=== PATIENT | female | born 1950 | race Caucasian/White ===

== ENCOUNTER 2017-05-07 14:23 | Inpatient (IN) ==
[2017-05-07] MEDS ORDERED: ONDANSETRON 4 MG/2 ML INJECTION IVP PRN (18:29)
[2017-05-07] MEDS ORDERED: HYDROCODONE/APAP 7.5 MG/325 MG TABLET PO PRN (18:30)
[2017-05-07] MEDS ORDERED: IOHEXOL 300mg/ml 75ml INJECTION ONE (18:38)
[2017-05-07] MEDS ORDERED: NS 100 ML ONE (18:38)
[2017-05-07] MEDS ORDERED: SALINE FLUSH 10ml SYRINGE ONE (18:38)
--- NOTE | 2017-05-07 18:39 | History & Physical Report ---
History of Present Illness Date: 05/07/17 Chief complaint: dehydration, tachycardia HPI: Danna is a 66-year-old female who lives in [place], [place] under the primary care of Dr. True Casiano. Patient has been ill since April 20 and has had multiple visits to the primary care provider's office. Initially she was diagnosed with influenza A on 04/22. She completed a round of Tamiflu, however, symptoms did not improve. She returned to primary care provider's office on April 30 for reevaluation, at which time she was then started on Augmentin twice a day for 10 days as well as an albuterol MDI inhaler for wheezing. Again , symptoms did not improve. On May 05, 2017 she began having right cervical adenopathy as well as right mastoid pain. Today she returned back to primary care provider's office for reevaluation given persistent symptoms and worsening pain. Further workup was performed at the clinic including a chest x-ray that was negative. Laboratory studies were obtained as follows- WBC count 7.2, hemoglobin 12.7, hematocrit 39.1, platelet count 23, 67% segs, 4% bands. INR is 3.43. Sodium is 135, potassium 3.2, BUN 19, creatinine 1.2, glucose 201, CRP 12.5, troponin negative, TSH 2.32, strep throat culture was negative. Blood cultures were obtained. Urinalysis was negative. She was given IV fluids as well as 2 gram of IV Rocephin at the clinic. She continued to be tachycardic. Given the new findings of thrombocytopenia, persistent tachycardia. Concern for dehydration [facility] hospitalist services were contacted and accepted patient for direct admission under the care of Dr. Haley for further evaluation and treatment. Given her oncologist is Dr. Brody. Patient is seen on arrival to [facility]. She is noted to be tachycardic in the 130s. She is able to give detailed history regarding ongoing illness and treatment. She also reveals that she has had a 10 pound weight loss over the last several weeks during this illness. She reports she does have a history of non-Hodgkin's lymphoma and does continue to follow with Dr. Brody. She reports that he has been observing a "neck mass on the left side. He has also been monitoring enlarged lymph nodes in the outpatient setting. Review of Systems All systems PM: 10-point ROS was reviewed, no additional remarkable complaints except - Constitutional Constitutional: Present: anorexia, fatigue, lethargy - Respiratory Respiratory: Present: cough - Musculoskeletal Musculoskeletal Comments: Chronic joint pain due to fibromyalgia Past Medical History Patient Stated Medical History Pulmonary Emboli and chronic anticoagulation Psoriatic arthritis Meningitis- 4 yrs ago Peripheral Neuropathy Hearing Loss Sleep Apnea Diabetes Mellitus Type 2 GERD Anemia Osteoarthritis Sepsis Shingles Non hodgkin's lymphoma Depression Surgical History: . Appendectomy. Cholecystectomy. Laminectomy L4- L5 -2011. Liposuction and Tummy tuck-1996. Left knee replacement-2006. Colonoscopy-2016. Lymph node biopsy-2015. Breast biopsy 2011 Family History Updates: Father-heart disease, CVA. Mother-dementia - Social History Smoking status: Never smoker Substance use type: does not use Alcohol intake frequency: does not drink Housing: house Current occupational status: retired (RN) Social history: PCP Dr True Goodrich, [place] Oncologist Dr. Lee Medications Home Medications Medication Instructions Recorded Confirmed Type Allopurinol [Zyloprim] 200 mg PO DAILY 05/07/17 05/07/17 History Atenolol [Tenormin] 12.5 mg PO DAILY 05/07/17 05/07/17 History Cyclobenzaprine HCl 15 mg PO HS 05/07/17 05/07/17 History Duloxetine HCl [Cymbalta] 60 mg PO BID 05/07/17 05/07/17 History Estropipate 0.375 mg PO DAILY 05/07/17 05/07/17 History Gabapentin [Neurontin] 600 mg PO TID 05/07/17 05/07/17 History Hydrocodone/APAP 7.5/325 1 tab PO Q4-6HR PRN 05/07/17 05/07/17 History Metformin HCl [Metformin HCl ER] 1,000 mg PO DAILY 05/07/17 05/07/17 History Omeprazole 40 mg PO DAILY 05/07/17 05/07/17 History Potassium Chloride [Klor-Con 10] 10 meq PO TID 05/07/17 05/07/17 History PredniSONE [Deltasone] 2.5 mg PO DAILY 05/07/17 05/07/17 History Rosuvastatin [Crestor] 20 mg PO HS 05/07/17 05/07/17 History Torsemide 50 mg PO DAILY 05/07/17 05/07/17 History Trazodone HCl 100 mg PO HS 05/07/17 05/07/17 History Warfarin Sodium 4 mg PO 3XW 05/07/17 05/07/17 History Warfarin Sodium 5 mg PO 4XW 05/07/17 05/07/17 History Allergies Allergy/AdvReac Type Severity Reaction Status Date / Time CARMEN Inhibitors Allergy Verified 05/07/17 17:08 atorvastatin [From Lipitor] Allergy Verified 05/07/17 17:08 clindamycin Allergy Verified 05/07/17 17:08 losartan Allergy Verified 05/07/17 17:08 niacin Allergy Verified 05/07/17 17:08 Exam Vital Signs: Temperature 99.3 F 05/07/17 17:13 Pulse Rate 136 H 05/07/17 18:19 Respiratory Rate 20 05/07/17 17:13 Blood Pressure 123/61 05/07/17 17:13 Pulse Oximetry 92 05/07/17 17:13 Telemetry Rhythm: Sinus Tachycardia Height/Weight/BMI: Height 1.55 m Weight 106.8 kg Body Mass Index 44.4 - Constitutional Present: no acute distress, well nourished, well developed - Routine HEENT Exam Eye: Present: EOMI ENT: Present: mucous membranes moist, dentition normal - Routine Neck Exam Present: lymphadenopathy, tenderness (right mastoid tenderness), swelling ( right mastoid swelling) - Routine Respiratory Exam Present: CTA bilaterally. Absent: wheezes - Routine Cardiovascular Exam Present: RRR, S1, S2. Absent: murmur - Routine Abdominal Exam Present: soft, normoactive bowel sounds, non distended. Absent: tenderness - Routine Extremities Exam Present: full ROM, normal capillary refill - Routine Back/Spine/Pelvis Exam Back/Spine: Present: full ROM - Routine Skin Exam Present: intact, dry, warm - Routine Neurological Exam Present: alert, oriented X3, CN II-XII intact, moving all extremities - Routine Psychiatric Exam Present: normal affect, cooperative Assessment and Plan (1) Dehydration Current visit: Yes Status: Acute (2) Tachycardia Current visit: Yes Status: Acute (3) Lymphadenopathy of right cervical region Current visit: Yes Status: Acute Assessment and Plan: Impression Dehydration Tachycardia-present on admission Thrombocytopenia-present on admission Lymphadenopathy with right mastoid tenderness Type II diabetes Peripheral neuropathy Psoriatic arthritis GERD Pulmonary emboli with chronic anticoagulation Fibromyalgia Chronic back pain Obstructive sleep apnea Plan Admit patient, observation under the care of Dr. Haley for dehydration with tachycardia and thrombocytopenia. Did review outpatient labs from this morning done at [facility] this morning. Salvager Helper was 1.2. Will obtain CT scan of soft tissue neck to further evaluate lymphadenopathy as well as right-sided mastoid tenderness. Place patient on cardiac telemetry to monitor given evidence tachycardia. Twelve -lead EKG is obtained during examination does reveal sinus tach, rate of 135. Will order PRN Lopressor 5 mg IV every 6 hrs PRN sustained tachycardia greater than 120. Obtain orthostatic vital signs BID Monitor accuchecks given DM Consultation with Dr Brody for further immunology evaluation and recommendation. Concern for thrombocytopenia with lymphadenopathy Obtain Urine Salvager Helper and urine sodium given hyponatremia Consult to pharmacy for Coumadin dosing management SCD to bilateral lower ext Home medications will need to be reviewed once reconciled Patient does wish to be a full code and this order is written Recheck CBC and BMP tomorrow morning to follow blood counts, renal function and electrolytes. Will discuss further orders and plan of care with today, Dr. Haley. At time of discharge medical care will return to primary care provider's in [place], [place], Dr True Casiano DVT Prophylaxis: SCD's, Coumadin Resuscitation Status: Full Code - Time spent with patient Time with patient PN: 35 minutes Coordination of Care: >50% of visit spent providing counseling/coordination of care - Physician Narrative Physician: Isabella Haley MD Narrative: Date: 05/07/17 Time: 2129 I have independently evaluated and examined this patient. I reviewed the chart, the patient's history, and the C2 TACTICAL ANALYSIS TECHNICIAN/PA's documented findings as above. We discussed and formulated the assessment and plan as above with additions as below: Mrs. Antony seen with her daughters at the bedside. She was diagnosed with influenza A 2 weeks ago but had persistent low-grade fevers prompting initiation of Augmentin one week ago without improvement. Over the past 3-4 days developed increasing adenopathy in the right neck with associated pain behind the right ear. She's had persistent fever with temperature as high as the 102 2 nights ago and describes night sweats unless she takes pain pills that suppress her temperature. She's had a 10 pound weight loss in the past week and describes generalized/increased myalgias, fatigue, arthralgias, and headache. She was tachycardic when seen in the office today with rate of approximately 140 and was incidentally found to have thrombocytopenia. She was referred for hospitalization due to new thrombocytopenia (plt ct 218K 04/22/17, no recognized blood loss per patient), persistent tachycardia, and increased adenopathy. The patient's 2 daughters are her alternate decision makers and the patient is a full code but reports she doesn't want to be kept alive as a vegetable. Afebrile on admission but it appears fatigued and chronically ill. Supine 133/ 67, 133 standing 90/57, 38 Palpable adenopathy in the anterior and posterior cervical chains, supraclavicular nodes noted and one axillary node palpated. Marked tenderness on palpation of the right mastoid, right external auditory canal with mild cerumen buildup but tympanic membrane can be visualized and is unremarkable. Respirations are nonlabored and breath sounds clear; regular cardiac rhythm. INR 3.02-warfarin on hold at present Ur Na-12, Ur Cr-39.5, FeNa-0.29% CT soft tissue neck reviewed by myself with report as described below. EKG with sinus tachycardia, rate 135, no acute ST/T-wave changes. In addition to labs obtained earlier today lactic acid being obtained-qSOFA 0 on admission. Severe sepsis criteria present based on fever, tachycardia, and new thrombocytopenia was suspected infection soft tissues of the head and neck. Fluid bolus being administered; rate of fluids to be increased-FENa consistent with dehydration; patient reports maintaining good oral intake however with recurrent fever volume status compromised. Orthostasis consistent with dehydration. Usual home dose beta louie resumed. Dr. Brody to see in a.m. CT of neck with fairly extensive adenopathy, right mastoid unremarkable however phlegmon is described inferior to right auditory canal. Blood cultures drawn prior to transfer. Continue Rocephin. Discussed with Dr. Casiano. Convert inpatient status due to presence of severe sepsis, hemodynamic instability, and need for IV antibiotics. Sepsis Assessment - Evaluation SIRS Criteria: temperature > 100.9 (by history), pulse > 90 beats/minute Severe Sepsis: platelet count < 100,000 Hospital Course Summary Disclaimer: The visit summary below is not to be considered part of the above Progress Note. Hospital Course: 05/07/17 Impression Dehydration Tachycardia-present on admission Thrombocytopenia-present on admission Lymphadenopathy with right mastoid tenderness Type II diabetes Peripheral neuropathy Psoriatic arthritis GERD Pulmonary emboli with chronic anticoagulation Fibromyalgia Chronic back pain Obstructive sleep apnea Plan Admit patient, observation under the care of Dr. Haley for dehydration with tachycardia and thrombocytopenia. Did review outpatient labs from this morning done at [facility] this morning. Salvager Helper was 1.2. Will obtain CT scan of soft tissue neck to further evaluate lymphadenopathy as well as right-sided mastoid tenderness. Place patient on cardiac telemetry to monitor given evidence tachycardia. Twelve -lead EKG is obtained during examination does reveal sinus tach, rate of 135. Will order PRN Lopressor 5 mg IV every 6 hrs PRN sustained tachycardia greater than 120. Obtain orthostatic vital signs BID Monitor accuchecks given DM Consultation with Dr Brody for further immunology evaluation and recommendation. Concern thrombocytopenia with lymphadenopathy Obtain Urine Salvager Helper and urine sodium given hyponatremia Consult to pharmacy for Coumadin dosing management SCD to bilateral lower ext Home medications will need to be reviewed once reconciled Patient does wish to be a full code and this order is written Recheck CBC and BMP tomorrow morning to follow blood counts, renal function and electrolytes. Will discuss further orders and plan of care with today, Dr. Haley. At time of discharge medical care will return to primary care provider's in [place], [place], Dr True Casiano
[2017-05-07] MEDS: NS with KCL 20 mEq 1,000 ML IV SCH (18:49)
[2017-05-07] MEDS: METOPROLOL 5mg/5ml INJECTION IVP PRN (19:28)
[2017-05-07] MEDS: SALINE FLUSH 10ml SYRINGE IV PRN ×3 (20:50→22:17)
[2017-05-07] MEDS ORDERED: CEFTRIAXONE 1 G in NS 100 ML IV SCH (21:30)
[2017-05-07] MEDS ORDERED: TRAZODONE 100 MG TABLET PO ONE (21:53)
[2017-05-07] MEDS: HYDROCODONE/APAP 7.5 MG/325 MG TABLET PO PRN (21:58)
[2017-05-07] MEDS: GABAPENTIN 600 MG TABLET PO SCH ×2 (21:59→22:17)
[2017-05-07] MEDS: CYCLOBENZAPRINE 10 MG TABLET PO SCH (21:59)
[2017-05-08] MEDS: METOPROLOL 5mg/5ml INJECTION IVP PRN (02:16)
[2017-05-08] MEDS: SALINE FLUSH 10ml SYRINGE IV PRN ×2 (02:18→04:09)
[2017-05-08] MEDS: NS with KCL 20 mEq 1,000 ML IV SCH ×2 (03:10→10:03)
[2017-05-08] MEDS: HYDROCODONE/APAP 7.5 MG/325 MG TABLET PO PRN ×4 (04:10→21:29)
[2017-05-08] MEDS ORDERED: NS FLUSH BAG 500ml IV PRN (08:17)
--- NOTE | 2017-05-08 08:38 | Consult Note ---
<Lu Christensen - Last Filed: 05/08/17 14:12> Oncology HPI - Data of Consult Requesting Physician: Isabella Haley MD - Consult Narrative History of present illness: Sitting in chair at time of my intake. Alert/oriented. Last fever/chills was 2 days ago at home. Denies chills, interm. feels 'sweaty' Denies h/a, vision changes. Pain interm. where neck is swollen. Denies SOA. Some non-prod. cough. No chest pain. Poor appetite-denies N/V. Last BM 3 days ago- " I went 4 times, the last time it was like diarrhea." Feels like is constipated now. Voiding normally Review of Systems - Constitutional Constitutional: Present: as per HPI, anorexia, fatigue - EENT Eyes: Absent: diplopia Nose: Absent: nosebleeds Mouth/Throat: Absent: sore throat, changes in swallowing Additional comments: Significant swelling neck, right > left for past several days. - Cardiovascular Cardiovascular: Absent: chest pain, palpitations - Respiratory Respiratory: Present: cough. Absent: hemoptysis, wheezing - Gastrointestinal Gastrointestinal: Present: constipation. Absent: hematochezia, nausea, vomiting - Genitourinary Genitourinary: Absent: dysuria, urinary urgency - Musculoskeletal Musculoskeletal: Present: neck pain - Neurological Neurological: Absent: dizziness, numbness - Psychiatric Psychiatric: Absent: abnormal sleep pattern - Hematologic/Lymphatic Hematologic/Lymphatic: Present: as per HPI, lymphadenopathy PFSH Patient Stated Medical History Meningitis Yes: bacterial meningitis 4 years ago Peripheral Neuropathy Yes: bilateral LE Hearing Loss Yes: Right ear hearing loss Sleep Apnea Yes: cpap at HS Diabetes Mellitus Type 2 Yes Gastroesophageal Reflux Yes Disease Hx Urinary Tract Infection Yes Anemia Yes Osteoarthritis Yes Sepsis Yes Shingles Yes Other Yes: non hodgkin's lymphoma Depression Yes Family History: oldest brother w/ history blood clots father with 3 sisters-2 paternal aunts had breast cancer. 1 paternal aunt with pancreatic cancer. No known cancer in first cousins - Social History Substance use type: does not use Alcohol intake frequency: does not drink Current occupational status: retired Current residence: Apartment/Private Home Medications Home Medications Medication Instructions Recorded Confirmed Type Allopurinol [Zyloprim] 200 mg PO DAILY 05/07/17 05/07/17 History Atenolol [Tenormin] 12.5 mg PO DAILY 05/07/17 05/07/17 History Cyclobenzaprine HCl 15 mg PO HS 05/07/17 05/07/17 History Duloxetine HCl [Cymbalta] 60 mg PO BID 05/07/17 05/07/17 History Estropipate 0.375 mg PO DAILY 05/07/17 05/07/17 History Gabapentin [Neurontin] 1,200 mg PO HS 05/07/17 05/07/17 History Gabapentin [Neurontin] 600 mg PO BID 05/07/17 05/07/17 History Hydrocodone/APAP 7.5/325 1 tab PO Q4-6HR PRN 05/07/17 05/07/17 History Metformin HCl [Metformin HCl ER] 1,000 mg PO DAILY 05/07/17 05/07/17 History Omeprazole 40 mg PO DAILY 05/07/17 05/07/17 History Potassium Chloride [Klor-Con 10] 10 meq PO TID 05/07/17 05/07/17 History PredniSONE [Deltasone] 2.5 mg PO DAILY 05/07/17 05/07/17 History Rosuvastatin [Crestor] 20 mg PO HS 05/07/17 05/07/17 History Torsemide 50 mg PO DAILY 05/07/17 05/07/17 History Trazodone HCl 100 mg PO HS 05/07/17 05/07/17 History Warfarin Sodium 4 mg PO 3XW 05/07/17 05/07/17 History Warfarin Sodium 5 mg PO 4XW 05/07/17 05/07/17 History Allergies Allergy/AdvReac Type Severity Reaction Status Date / Time CARMEN Inhibitors Allergy Verified 05/07/17 17:08 atorvastatin [From Lipitor] Allergy Verified 05/07/17 17:08 clindamycin Allergy Verified 05/07/17 17:08 losartan Allergy Verified 05/07/17 17:08 niacin Allergy Verified 05/07/17 17:08 Exam Vital signs: Temperature 98.8 F 05/08/17 08:00 Pulse Rate 106 H 05/08/17 11:00 Respiratory Rate 18 05/08/17 08:00 Blood Pressure 110/55 05/08/17 08:23 Pulse Oximetry 90 05/08/17 08:00 - Constitutional no acute distress, obese, cooperative - Routine HEENT Exam Head: Present: normocephalic Eye: Present: EOMI, PERRL ENT: Present: mucous membranes moist Throat: normal inspection - Routine Neck Exam Present: lymphadenopathy, swelling Comments: left anterior cervical lymphadenopathy, ~ 1.5 cm significant swelling right neck with large mass effect - Routine Respiratory Exam Present: decreased breath sounds. Absent: wheezes, crackles - Routine Cardiovascular Exam Present: RRR. Absent: no murmur, gallop - Routine Abdominal Exam Present: soft, normoactive bowel sounds. Absent: organomegaly, mass Comments: No organomegaly or mass, but difficult to assess 2nd to body habitus - Routine Extremities Exam Absent: no edema, tenderness - Routine Skin Exam Present: intact, dry, warm - Routine Neurological Exam Present: alert, oriented X3, moving all extremities, vision grossly intact, hearing grossly intact - Routine Psychiatric Exam Present: normal affect, normal thought process Oncology Results - Labs CBC & Chem 7: 05/08/17 04:00 05/08/17 04:00 Labs: Short CBC 05/08/17 Range/Units 04:00 WBC 6.2 (4.5-11.0) T/MM3 Hgb 10.2 L (12-16) GM/DL Hct 32.7 L (36-46) % Plt Count 12 L* (130-400) T/MM3 BMP 05/08/17 04:00 Sodium 141 Potassium 3.4 L Chloride 103 Carbon Dioxide 26 BUN 14.0 Creatinine 0.8 Glucose 106 Calcium 7.5 L Liver Function 05/08/17 Range/Units 04:00 Total Bilirubin 0.50 (0.20-1.30) MG/DL AST 63 H (14-36) U/L ALT 33 (9-52) U/L Alkaline Phosphatase 48 (38-126) U/L Albumin 3.0 L (3.5-5.0) G/DL - Impressions Date of Exam: 05/07/17 Ordering Provider: Jennifer Aly APRN Type of Exam(s): CT soft tissue neck w con Reason for Exam(s): Right mastoid tenderness, cervical lymphadenopathy Indication: Right mastoid tenderness, cervical lymphadenopathy PROCEDURE: CT soft tissue neck w con: Encounter: Initial Comparison: None Technique: Axial CT images were performed through the neck with intravenous contrast. Coronal and sagittal two-dimensional reformats. Automated Exposure Control and Iterative Reconstruction dose reducing techniques were utilized. Contrast: Omnipaque 300 75 mL Findings: Mild paraseptal emphysema. Significant mediastinal, axillary and cervical lymphadenopathy. Enlarged prevascular node on image #10 measures 2.6 cm in short axis. Enlarged right subpectoral node on image #24 measuring 2 cm in short axis. The thyroid gland is unremarkable. No evidence of airway compromise or tracheal narrowing. Bilateral cervical levels to 34 and five are all involved by minimally distributed lymph nodes measuring between five and 15 mm in short axis dimension. The salivary glands are fatty replaced. Great vessels are grossly normal. No evidence of significant mastoid fluid. There is a 1.5 cm low-attenuation region inferior to the right external auditory canal with some slight stranding around it the could represent phlegmon or inflamed lymph node. Impression: Diffuse adenopathy consistent with patient's history of lymphoma. Possible lymph node versus phlegmon inferior to the right external auditory canal. Assessment and Plan Assessment and Plan: 1. 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 Has shown adenopathy on CT scans since 01/2016. Left axillary LN biopsy : follicular hyperplasia. Most recent CT scan 03/12/17 showed improvement in thoracic LAD, mixed response in abd/pelvis. On continued surveillance. CT neck 05/08/17 shows diffuse adenopathy c/w history lymphoma. 2. Now with thrombocytopenia, tachycardia on admit, elevated LDH, and diffuse cervical adenopathy; potential cold agglutinin disease. 3. History of DVT Plan Dr. Brody has seen patient. Myeloma work up, check complimentary C3, C4 protein ordered. Will check urine hemoglobin. Bone marrow biopsy done/results pending. Continue supportive care; 1 unit platelets given. Follow closely. <Estrada Brody - Last Filed: 05/08/17 17:10> Oncology HPI - Data of Consult Patient: known to practice within the last 3 years Consult date: 05/08/17 Requesting Physician: Isabella Haley MD Family Provider: Dr. Mynor Casiano - Consult Narrative Reason for consult: history of lymphoma. Thrombocytopenia History of present illness: History of Present Illness --04/09/12: Left breast biopsy showing extranodal marginal zone Path review of lung biopsy from 2010 shows extranodal marginal zone lymphoma [place] restricted. Bone marrow was negative. Her lymphoma was treated by Dr. Meggan Epstein in [place] with six cycles of Rituxan/Treanda. --2011: Colon polyp, high grade dysplasia. --11/02/12: Last chemotherapy cycle. --03/16/15: CT without adenopathy with minor lung fibrosis and nodularity. --07/19/15: CT showing no evidence for neoplasm. --01/18/16: CT now showing adenopathy. 2.3 by 1.3 cm left axillary, 2.6 X 1.1 right axillary. Right paratracheal left common femoral,right external iliac nodes increased. --02/12/16: Left axillary lymph node biopsy: Follicular hyperplasia. --04/24/16: CT showed lung nodularity, axillary adenopathy, Stable right iliac nodes. --12/05/16: EGD and colonoscopy with Dr. Miller. --01/02/17: Dr. Lamonte Pugh-EGD and endoscopic ultrasound showed a 26 mm benign-appearing polypoid prepyloric pedunculated mass biopsies were obtained. Dr. Pugh's impression was of benign hyperplastic or inflammatory type of polyp. Pathology showed ulcerated hyperplastic polyp with Marked acute and chronic inflammation and granulation. Patient has had a 3 to 4 week history of URI cough, fever. Platelets yesterday were 23K and she is admitted to [facility] on 05/07/17 for low platelets. On Coumadin for DVT. INR 3. Platelets this AM of 12K. Increased swelling in the neck. She is on chronic prednisone for psoriatic arthritis. CT from 2 months ago showed smaller nodes in the chest and a mixed response in the abdomen with a para aortic node measuring 3.2 X 2.5 cm. [facility] Patient Stated Medical History Meningitis Yes: bacterial meningitis 4 years ago Peripheral Neuropathy Yes: bilateral LE Hearing Loss Yes: Right ear hearing loss Sleep Apnea Yes: cpap at HS Diabetes Mellitus Type 2 Yes Gastroesophageal Reflux Yes Disease Hx Urinary Tract Infection Yes Anemia Yes Osteoarthritis Yes Sepsis Yes Shingles Yes Other Yes: non hodgkin's lymphoma Depression Yes Surgical History: . Appendectomy. Cholecystectomy. Laminectomy L4- L5 -2011. Liposuction and Tummy tuck-1996. Left knee replacement-2006. Colonoscopy-2016. Lymph node biopsy-2015. Breast biopsy 2011 - Social History Smoking status: Never smoker Exam Vital signs: Temperature 98.8 F 05/08/17 08:00 Pulse Rate 102 H 05/08/17 08:23 Respiratory Rate 18 05/08/17 08:00 Blood Pressure 110/55 05/08/17 08:23 Pulse Oximetry 90 05/08/17 08:00 Oncology Results - Labs CBC & Chem 7: 05/08/17 13:25 05/08/17 04:00 Labs: Short CBC 05/08/17 Range/Units 04:00 WBC 6.2 (4.5-11.0) T/MM3 Hgb 10.2 L (12-16) GM/DL Hct 32.7 L (36-46) % Plt Count 12 L* (130-400) T/MM3 BMP 05/08/17 04:00 Sodium 141 Potassium 3.4 L Chloride 103 Carbon Dioxide 26 BUN 14.0 Creatinine 0.8 Glucose 106 Calcium 7.5 L Liver Function 05/08/17 Range/Units 04:00 Total Bilirubin 0.50 (0.20-1.30) MG/DL AST 63 H (14-36) U/L ALT 33 (9-52) U/L Alkaline Phosphatase 48 (38-126) U/L Albumin 3.0 L (3.5-5.0) G/DL Laboratory Tests 05/07/17 05/08/17 05/08/17 19:27 04:00 04:00 Hgb 10.2 L Plt Count 12 L* Metamyelocytes % 3.0 H Myelocytes % 1.0 H Percent Retic 3.0 H INR 3.02 H Calcium 7.5 L Lactate Dehydrogenase 1262 H IgG 1236.28 IgA 229.84 IgM 321.27 H Assessment and Plan Assessment and Plan: CT of the chest abdomen pelvis shows increasing lymph nodes that we will need to get a biopsy of to document type of lymphoma. Need to have platelets higher to be able to get the biopsy. Bone marrow biopsy was done today. 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 Will start Solu-Medrol 1 g daily for 3 days. May add IVIG or Rituxan depending upon bone marrow results. When patient initially presented with her lymphoma she did have low platelets and had normal bone marrow at that time. 2. Influenza 3. Question lymph node versus phlegmon of the right submandibular area. Currently on antibiotics and fever is decreasing. 4. History of pulmonary embolism anticoagulated. Will give 1 more unit of fresh frozen. 1 unit of fresh frozen was given prior to bone marrow and INR was 2 down from 3. Discussed with Dr. Haley platelets improved from 12 to 14 after one unit of platelets.
--- NOTE | 2017-05-08 09:01 | CT Scan Report ---
Indication: Right mastoid tenderness, cervical lymphadenopathy PROCEDURE: CT soft tissue neck w con: Encounter: Initial Comparison: None Technique: Axial CT images were performed through the neck with intravenous contrast. Coronal and sagittal two-dimensional reformats. Automated Exposure Control and Iterative Reconstruction dose reducing techniques were utilized. Contrast: Omnipaque 300 75 mL Findings: Mild paraseptal emphysema. Significant mediastinal, axillary and cervical lymphadenopathy. Enlarged prevascular node on image #10 measures 2.6 cm in short axis. Enlarged right subpectoral node on image #24 measuring 2 cm in short axis. The thyroid gland is unremarkable. No evidence of airway compromise or tracheal narrowing. Bilateral cervical levels to 34 and five are all involved by minimally distributed lymph nodes measuring between five and 15 mm in short axis dimension. The salivary glands are fatty replaced. Great vessels are grossly normal. No evidence of significant mastoid fluid. There is a 1.5 cm low-attenuation region inferior to the right external auditory canal with some slight stranding around it the could represent phlegmon or inflamed lymph node. Impression: Diffuse adenopathy consistent with patient's history of lymphoma. Possible lymph node versus phlegmon inferior to the right external auditory canal. There is a preliminary report by [facility]. .
[2017-05-08] MEDS: DULOXETINE 60 MG CAPSULE PO SCH ×2 (09:54→21:26)
[2017-05-08] MEDS: ALLOPURINOL 100 MG TABLET PO SCH (09:54)
[2017-05-08] MEDS: PredniSONE 2.5 MG TABLET PO SCH (09:54)
[2017-05-08] MEDS: GABAPENTIN 600 MG TABLET PO SCH ×3 (09:54→21:26)
[2017-05-08] MEDS: ATENOLOL 25 MG TABLET PO SCH (09:55)
[2017-05-08] MEDS ORDERED: PNEUMOCOCCAL 13 VACCINE 0.5ml INJECTION IM ONE (12:05)
[2017-05-08] MEDS ORDERED: SALINE FLUSH 10ml SYRINGE ONE (14:05)
[2017-05-08] MEDS ORDERED: NS 100 ML ONE (14:05)
[2017-05-08] MEDS ORDERED: IOHEXOL 300mg/ml 100ml INJECTION ONE (14:05)
[2017-05-08] MEDS: CEFTRIAXONE 1 G in NS 100 ML IV SCH (14:29)
[2017-05-08] MEDS ORDERED: BUPIVACAINE 0.5% (5mg/ml) PF 30ml INJ SDV ONE (14:57)
[2017-05-08] MEDS ORDERED: LIDOCAINE 1% (10mg/ml) 5ml PF SDV ONE (14:57)
[2017-05-08] MEDS ORDERED: PNEUMOCOCCAL VAC ADMIN CHARGE INJ ONE (16:26)
--- NOTE | 2017-05-08 16:26 | CT Scan Report ---
Indication:Thrombocytopenia Procedure:CT biopsy bone marrow CT GUIDED BONE MARROW BIOPSY/ASPIRATION: The procedure including the benefits, risks, and alternatives were explained in detail to the patient. All of her questions were answered. They stated that they understood and wished to proceed. Informed consent was obtained. A pre-procedural timeout was done to verify the correct patient and procedure. Using sterile technique, local Xylocaine and Marcaine anesthesia, and CT guidance, an 11-gauge bone biopsy needle is advanced from a posterior approach into the left iliac bone. Approximately 10 cc of marrow is aspirated and a core biopsy was then taken. The needle was removed. There was no complication. Hemostasis was obtained and a compression bandage was applied. Following this, the patient was taken back to her room on the medical floor for continued monitoring. She was in stable condition. Impression: Technically successful bone marrow biopsy from the posterior aspect of the left iliac bone. Gus Kee RPA/MARY performed this under my personal supervision. .
[2017-05-08] MEDS: POLYETHYL GLYCOL 3350 17gm PACKET PO SCH (17:44)
--- NOTE | 2017-05-08 17:44 | Progress Note ---
- Date 05/08/17 Subjective: Mrs. Antony reports persistent tenderness behind her right ear although possibly not as bad. She's feverish at the time of evaluation. She began having nasal bleeding overnight and reports that the bone marrow site is bleeding. She is also noted increased bruising overnight. She is slightly dyspneic, especially with any activity. She denied nausea but is constipated. She describes mild pleuritic pain but has not had hemoptysis. She reports her urine is dark orange. Heart rate improved after fluid bolus/administration overnight. Objective Vital signs: Temperature 99.0 F 05/08/17 16:00 Pulse Rate 103 H 05/08/17 16:00 Respiratory Rate 20 05/08/17 16:00 Blood Pressure 123/65 05/08/17 16:00 Pulse Oximetry 94 - RA 05/08/17 16:00 I/O 4733/1600 EXAM General-NAD, alert; no longer orthostatic HEENT-conjunctiva clear, sclera anicteric, oropharynx clear other than mild blood staining along inner aspect of Lungs-respirations nonlabored, good airflow, breath sounds clear Cardiac-regular rhythm, S1-S2 Abd-obese, soft, nontender, bowel sounds present although diminished Ext-trace edema bilateral lower extremities Skin-petechiae present all extremities-most notable right forearm and arm; increased bruising right upper extremity, large bruise/hematoma over right scapula Neuro-MAEW Psych-calm, cooperative - Height/Weight/BMI: Height 1.55 m Weight 107.9 kg Body Mass Index 44.4 Results - Labs CBC & Chem 7: 05/08/17 13:25 05/08/17 04:00 Labs: White count 6.2, hemoglobin 10.2, platelet count initially 12 this morning. MCV 88.1. S51 B17 L19 M9 Meta3 Mye1 INR 2.03 Accu-Cheks 152-187 today Bilirubin 0.5, AST 63, albumin 3.0 LDH 1262 Lactic acid 3.0-2.0 Homocystine 8.1 IgG, IgA within normal limits, IgM elevated at 321.27 Multiple studies pending - Imaging and Cardiology CT scan - abdomen Status: image reviewed by me (discussed with Dr. Brody-extensive adenopathy and some atrophy of kidneys and probable hydronephrosis on the right) CT scan - chest Status: image reviewed by me (and reviewed with Dr. Brody-extensive adenopathy) Assessment and Plan (1) Dehydration Current visit: Yes Status: Acute (2) Thrombocytopenia Current visit: Yes Status: Acute Assessment and Plan: Impression Dehydration-POA, FeNa 0.29% Tachycardia-POA Thrombocytopenia-POA Lymphadenopathy, extensive Right mastoid tenderness, possible phlegmon inferior right auditory canal Sepsis Type II diabetes Peripheral neuropathy Psoriatic arthritis GERD Pulmonary emboli with chronic anticoagulation Fibromyalgia Chronic back pain Obstructive sleep apnea Plan Worsening thrombocytopenia overnight, extensive adenopathy on CT imaging of chest/abdomen/pelvis. No response to initial platelet pack-likely autoimmune destruction. Additional platelet is being given due to bleeding bone marrow biopsy site. High-dose steroids initiated in conjunction with FFP per Dr. Brody. Bone marrow obtained-results pending. 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 Tachycardia improving with fluid administration-continue. Fevers controlled with frequent doses acetaminophen/[place]. Continue ceftriaxone for sepsis-will contact Dr. Casiano in [place] tomorrow regarding culture results. Warfarin on hold due to thrombocytopenia/bleeding. SCDs for DVT prophylaxis. Bowel regimen initiated for constipation. Results discussed with Dr. Brody several times through the day. DVT Prophylaxis: SCD's GI Prophylaxis: other (omeprazole) Resuscitation Status: Full Code - Physician Narrative Narrative: Date: 05/08/17 Time: 1731 Hospital Course Summary Disclaimer: The visit summary below is not to be considered part of the above Progress Note. Hospital Course: 05/07/17 Impression Dehydration Tachycardia-present on admission Thrombocytopenia-present on admission Lymphadenopathy with right mastoid tenderness Type II diabetes Peripheral neuropathy Psoriatic arthritis GERD Pulmonary emboli with chronic anticoagulation Fibromyalgia Chronic back pain Obstructive sleep apnea Plan Admit patient, observation under the care of Dr. Haley for dehydration with tachycardia and thrombocytopenia. Did review outpatient labs from this morning done at [facility] this morning. Community Coordinator was 1.2. Will obtain CT scan of soft tissue neck to further evaluate lymphadenopathy as well as right-sided mastoid tenderness. Place patient on cardiac telemetry to monitor given evidence tachycardia. Twelve -lead EKG is obtained during examination does reveal sinus tach, rate of 135. Will order PRN Lopressor 5 mg IV every 6 hrs PRN sustained tachycardia greater than 120. Obtain orthostatic vital signs BID Monitor accuchecks given DM Consultation with Dr Brody for further immunology evaluation and recommendation. Concern thrombocytopenia with lymphadenopathy Obtain Urine Community Coordinator and urine sodium given hyponatremia Consult to pharmacy for Coumadin dosing management SCD to bilateral lower ext Home medications will need to be reviewed once reconciled Patient does wish to be a full code and this order is written Recheck CBC and BMP tomorrow morning to follow blood counts, renal function and electrolytes. Will discuss further orders and plan of care with today, Dr. Haley. At time of discharge medical care will return to primary care provider's in [place], [place], Dr True Casiano 05/08/17 Worsening thrombocytopenia overnight, extensive adenopathy on CT imaging of chest/abdomen/pelvis. No response to initial platelet pack-likely autoimmune destruction. Additional platelet is being given due to bleeding bone marrow biopsy site. High-dose steroids initiated in conjunction with FFP per Dr. Brody. Bone marrow obtained-results pending. 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 Tachycardia improving with fluid administration-continue. Fevers controlled with frequent doses acetaminophen/[place]. Continue ceftriaxone for sepsis-will contact Dr. Casiano in [place] tomorrow regarding culture results. Warfarin on hold due to thrombocytopenia/bleeding. SCDs for DVT prophylaxis.
[2017-05-08] MEDS: SENNA + DOCUSATE TABLET PO SCH (21:28)
[2017-05-08] MEDS: TRAZODONE 100 MG TABLET PO SCH (21:28)
[2017-05-08] MEDS: CYCLOBENZAPRINE 10 MG TABLET PO SCH (21:28)
[2017-05-09] MEDS: NS with KCL 20 mEq 1,000 ML IV SCH ×3 (00:22→21:53)
[2017-05-09] MEDS ORDERED: NS 1,000 ML IV ONE (04:04)
[2017-05-09] MEDS: OMEPRAZOLE 20 MG CAPSULE PO SCH (06:25)
[2017-05-09] MEDS: HYDROCODONE/APAP 7.5 MG/325 MG TABLET PO PRN ×2 (06:34→21:16)
[2017-05-09] MEDS: GABAPENTIN 600 MG TABLET PO SCH ×3 (08:45→21:05)
[2017-05-09] MEDS: METOPROLOL 5mg/5ml INJECTION IVP PRN (08:45)
[2017-05-09] MEDS: SENNA + DOCUSATE TABLET PO SCH ×2 (08:45→21:04)
[2017-05-09] MEDS: DULOXETINE 60 MG CAPSULE PO SCH ×3 (08:45→21:10)
[2017-05-09] MEDS: POLYETHYL GLYCOL 3350 17gm PACKET PO SCH (08:45)
[2017-05-09] MEDS: ALLOPURINOL 100 MG TABLET PO SCH (08:45)
[2017-05-09] MEDS: ATENOLOL 25 MG TABLET PO SCH (08:45)
[2017-05-09] MEDS: MethylPREDNISolone SOD SUCC 1,000 MG in NS 250ml 250 ML IV SCH (08:46)
--- NOTE | 2017-05-09 09:31 | CT Scan Report ---
Indication: Lymphoma PROCEDURE: CT chest abd/pelvis w con: Encounter: Subsequent Comparison: Outside CT neck, chest, abdomen and pelvis dated March 12, 2017 Technique: Axial CT images were performed through the chest, abdomen and pelvis after the administration of intravenous contrast. Coronal and sagittal two-dimensional reformats. Automated Exposure Control and Iterative Reconstruction dose reducing techniques were utilized. Contrast: Omnipaque 300 99 mL Findings: Chest: Small bulla in both lungs. There is new nodularity in the right lower lobe on axial image #27. There is a new 6 mm nodule in the right middle lobe on image #17. There are additional small nodules along the right diaphragmatic surface on image #30. Stable area of possible nodular scar in the lingula. 7 mm left lower lobe nodule on image #31 appears new. No pneumonia, pleural effusion or pneumothorax. The central airways are patent. Axillary and mediastinal adenopathy has significantly worsened from the comparison study. Licensed Acupuncturist right axillary node on axial image #12 measures 1.9 cm in short axis compared to 0.9 cm on the comparison. Right paratracheal node on image #11 measures 2 cm in short axis compared to 1.1 cm. AP window node on axial image #18 measures 2.2 cm in short axis compared to 1.3 cm. Additional paratracheal and subcarinal nodes have grown by a similar amount. Right hilar lymphadenopathy as well. Heart size is stable. No pericardial effusion. Great vessels are within normal limits. Abdomen/pelvis: The liver is grossly normal. Gallbladder is surgically absent. The spleen with accessory splenule, pancreas and adrenal glands are normal. Tiny low-attenuation renal foci bilaterally, too small to definitively characterize. Right renal scarring. Interval growth in a large left periaortic node on image #38 now measuring 4.5 cm in short axis compared to 2.9 cm previously. Additional periaortic and aortocaval nodes have significantly enlarged. Enlarging bilateral common and external iliac nodes are also seen. Right common iliac node on image #69 measures 2.2 cm in short axis, increased from 0.9 cm. Large right pelvic sidewall node on image #73 now measures 2.9 cm short axis compared to 1.8 cm. Left pelvic sidewall node on image #76 now measures 2.5 cm short axis compared to 1.1 cm. Enlarging left inguinal nodes. Licensed Acupuncturist node on image #89 measures 1.6 cm short axis compared to 1 cm. The bladder is normal. Uterus is absent. Mild sigmoid diverticulosis without acute diverticulitis. No evidence of a bowel obstruction. Calcified density deep to the right abdominal wall probably related to prior hernia repair. Bone windows show degenerative and postoperative changes in the lumbar spine but no obvious lytic or blastic bony lesions. Impression: 1. Significant interval worsening in axillary, mediastinal, retroperitoneal and pelvic adenopathy as described and measured above. 2. New pulmonary nodules suspicious for metastases. .
[2017-05-09] MEDS ORDERED: TORSEMIDE 20 MG TABLET PO SCH (10:45)
[2017-05-09] MEDS: CEFTRIAXONE 1 G in NS 100 ML IV SCH (13:16)
--- NOTE | 2017-05-09 13:36 | Progress Note ---
<Lu Christensen - Last Filed: 05/09/17 15:24> Oncology Subjective Sitting in chair, daughter @ bedside. Reports "SOA if I take a deep breath." Denies cough, not SOA now. Feels neck is a little less sore. Eating a bit better today. No BM since admit. Reports taking Miralax, Senokot. Passing gas today. No dysuria/hematuria. General: + fever, no night sweats or chills Eyes: No redness, no pain, no diplopia ENT: No mouth sores, no trouble swallowing Cardiac: No chest pain no palpitations Pulmonary: No cough, + shortness of breath " with a deep breath", no wheezing Abdomen: No pain, no nausea vomiting, no diarrhea. + constipation : No urgency, frequency, dysuria, or hematuria Musculoskeletal: No arthritis, no myalgias Neurological: No headaches, no focal weakness Skin: No rash, no sores Psychiatric: No anxiety, no depression Exam Vital signs: Temperature 100.0 F 05/09/17 07:24 Pulse Rate 121 H 05/09/17 11:54 Respiratory Rate 24 05/09/17 07:24 Blood Pressure 122/60 05/09/17 11:54 Pulse Oximetry 90 05/09/17 11:54 - Constitutional no acute distress, obese, cooperative - Routine HEENT Exam Head: Present: normocephalic Eye: Present: EOMI. Absent: periorbital swelling ENT: Present: mucous membranes moist - Routine Neck Exam Present: supple, lymphadenopathy (right neck with diffuse swelling-appears decreased. 1 cm left ant. cervical LAD) - Routine Respiratory Exam Present: decreased breath sounds. Absent: wheezes, crackles - Routine Cardiovascular Exam Present: RRR, tachycardia (mildly tachycardic). Absent: no murmur - Routine Abdominal Exam Present: soft. Absent: organomegaly, mass (no organomegaly or mass, but difficult to assess 2nd. to obesity) - Routine Extremities Exam Present: edema (trace/1 + pedal edema. No upper extremity edema), full ROM - Routine Back/Spine/Pelvis Exam Back/Spine: Absent: paraspinal tenderness - Routine Skin Exam Present: intact, dry, pallor, petechiae (petechiae noted loli. dorsum hands and anterior loli. lower legs) - Routine Neurological Exam Present: alert, oriented X3, moving all extremities, hearing grossly intact - Routine Psychiatric Exam Present: normal affect, normal thought process, cooperative Oncology Results - Labs CBC & Chem 7: 05/09/17 12:17 05/09/17 04:35 Labs: Short CBC 05/08/17 05/09/17 05/09/17 Range/Units 13:25 00:04 04:35 WBC 5.6 (4.5-11.0) T/MM3 Hgb 8.6 L D (12-16) GM/DL Hct 28.5 L D (36-46) % Plt Count 14 L* 11 L* 7 L* D (130-400) T/MM3 05/09/17 Range/Units 12:17 WBC (4.5-11.0) T/MM3 Hgb (12-16) GM/DL Hct (36-46) % Plt Count 11 L* D (130-400) T/MM3 BMP 05/09/17 04:35 Sodium 140 Potassium 3.6 Chloride 107 Carbon Dioxide 25 BUN 13.0 Creatinine 0.8 Glucose 121 H Calcium 7.9 L Liver Function 05/09/17 Range/Units 04:35 Albumin 3.1 L (3.5-5.0) G/DL Urine 05/09/17 Range/Units 10:04 Urine Protein 22 MG/DL Assessment and Plan Assessment and Plan: 1. 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 Has shown adenopathy on CT scans since 01/2016. Left axillary LN biopsy : follicular hyperplasia. Most recent CT scan 03/12/17 showed improvement in thoracic LAD, mixed response in abd/pelvis. On continued surveillance. CT neck 05/08/17 shows diffuse adenopathy c/w history lymphoma. CT of the chest abdomen pelvis shows increasing lymph nodes that we will need to get a biopsy of to document type of lymphoma. Need to have platelets higher to be able to get the biopsy. Bone marrow biopsy was done 05/08/16, pathology pending.. 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 Started Solu-Medrol 1 g daily for 3 days. May add IVIG or Rituxan depending upon bone marrow results. When patient initially presented with her lymphoma she did have low platelets and had normal bone marrow at that time. 2. Now with thrombocytopenia, tachycardia on admit, elevated LDH, and diffuse cervical adenopathy; potential cold agglutinin disease. ITP persists, platelets 7K today, 05/09/17; add high dose IVIG today. 3. History of DVT 4. Influenza 5. History of pulmonary embolism anticoagulated. FFP given 05/08/17 and repeated today; INR 1.38 today, 05/09/16. Plan Continue close monitoring of counts, supportive care. Begin IVIG today. Reviewed safety precautions w/ patient; DO NOT AMBULATE ALONE-at risk for severe injury if falls. Acknowledges/agrees to call for help when up. - Time Spent With Patient Total time spent is greater than 50% in coordination of care (as documented) at patient's floor/unit and/or counseling patient: 25 - 35 minutes <Estrada Brody - Last Filed: 05/09/17 18:22> Exam Vital signs: Temperature 98.9 F 05/09/17 15:26 Pulse Rate 94 05/09/17 15:26 Respiratory Rate 20 05/09/17 15:26 Blood Pressure 132/73 05/09/17 15:26 Pulse Oximetry 94 05/09/17 15:26 Oncology Results - Labs CBC & Chem 7: 05/09/17 12:17 05/09/17 04:35 Labs: Short CBC 05/09/17 05/09/17 05/09/17 Range/Units 00:04 04:35 12:17 WBC 5.6 (4.5-11.0) T/MM3 Hgb 8.6 L D (12-16) GM/DL Hct 28.5 L D (36-46) % Plt Count 11 L* 7 L* D 11 L* D (130-400) T/MM3 BMP 05/09/17 04:35 Sodium 140 Potassium 3.6 Chloride 107 Carbon Dioxide 25 BUN 13.0 Creatinine 0.8 Glucose 121 H Calcium 7.9 L Liver Function 05/09/17 Range/Units 04:35 Albumin 3.1 L (3.5-5.0) G/DL Urine 05/09/17 Range/Units 10:04 Urine Protein 22 MG/DL Assessment and Plan Assessment and Plan: Patient examined. Chart reviewed Discussed with Dr. Haley and Dr. Trevizo. Platelets have declined to 7 k. improved to 11K after transfusion today. INR corrected. Haptoglobin normal ruling out hemolytic anemia. She does have warm antibody and will do type and screen. Bone marrow findings discussed with Dr. Trevizo. Granulomas and concern for hodgkin's disease. Adequate megas confirm ITP. No response to solumedrol. Will start IvIg at 1 gm per KG today with plan to repeat tomorrow if platelets not above 50K. Will need node biopsy when platelets allow. Febrile this morning that has improved. I participated in the development of the plan of care with Michelle Christensen. History of DVT and will start LMW heparin when platelets above 50K and no bleeding. Anemia may be secondary to blood loss. Type and screen obtained today prior to IvIG and will be good for 72 hours. - Time Spent With Patient Total time spent is greater than 50% in coordination of care (as documented) at patient's floor/unit and/or counseling patient:
[2017-05-09] MEDS: DIPHENHYDRAMINE 50 MG/ML IVP SCH (14:37)
[2017-05-09] MEDS: ACETAMINOPHEN 325 MG PO SCH (14:38)
[2017-05-09] MEDS: [UNRECOGNIZED DRUG - MIXTURE] IV SCH (15:04)
--- NOTE | 2017-05-09 16:04 | Progress Note ---
- Date 05/09/17 Subjective: Robb is seen this afternoon with her daughter at her side. She is somewhat drowsy as she has had Tylenol and Benadryl prior to examination. It is noted that her heart rate has decreased and is currently 94 on auscultation. She reports having intermittent episodes of dryness in her nose that is bleeding as well as noted to have a petechial rash to bilateral hands and lower extremities likely due to her severe thrombocytopenia. No bowel movements. Objective Vital signs: Temperature 98.9 F 05/09/17 15:26 Pulse Rate 94 05/09/17 15:26 Respiratory Rate 20 05/09/17 15:26 Blood Pressure 132/73 05/09/17 15: Pulse Oximetry 94 05/09/17 15:26 Height/Weight/BMI: Height 1.55 m Weight 107.9 kg Body Mass Index 44.4 - Constitutional Present: no acute distress, well nourished, well developed - Routine HEENT Exam Eye: Present: EOMI ENT: Present: mucous membranes moist, dentition normal - Routine Respiratory Exam Present: CTA bilaterally. Absent: wheezes - Routine Cardiovascular Exam Present: RRR. Absent: murmur - Routine Abdominal Exam Present: soft, normoactive bowel sounds, non distended. Absent: tenderness - Routine Extremities Exam Present: edema (1-2+ bilateral lower ext edema), normal capillary refill - Routine Skin Exam Present: intact, dry, petechiae (Bilateral hands, bilateral lower ext), warm - Routine Neurological Exam Present: alert, oriented X3, CN II-XII intact, moving all extremities - Routine Lymphatic Exam Lymphatic: Absent: adenopathy - Routine Psychiatric Exam Present: normal affect Results - Labs CBC & Chem 7: 05/09/17 12:17 05/09/17 04:35 Assessment and Plan (1) Dehydration Current visit: Yes Status: Acute (2) Thrombocytopenia Current visit: Yes Status: Acute Assessment and Plan: Impression Dehydration-POA, FeNa 0.29% Tachycardia-POA Thrombocytopenia-POA Lymphadenopathy, extensive Right mastoid tenderness, possible phlegmon inferior right auditory canal Progressive anemia-RLL 05/09/17 Sepsis Type II diabetes Peripheral neuropathy Psoriatic arthritis GERD Pulmonary emboli with chronic anticoagulation Fibromyalgia Chronic back pain Obstructive sleep apnea Plan IVIG infusion under the surveillance of Dr. Brody Continued severe thrombocytopenia. Having bleeding from nose and gums that is controlled. Noted petechiae, rash to extremities. 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 Tachycardia improving currently 90's on auscultation Family Indicates plans to speak with Dr. Lee tomorrow morning as they have a lot of questions for him regarding diagnoses and further treatment plans. Continue to follow daily labs - Physician Narrative Physician: Isabella Haley MD Narrative: Date: 05/09/17 Time: 2214 I have independently evaluated and examined this patient. I reviewed the chart, the patient's history, and the HUMAN RESOURCE ANALYST/PA's documented findings as above. We discussed and formulated the assessment and plan as above with additions as below: Mrs. Antony was seen this afternoon at which time she complained of developing some puffiness in her extremities and increased petechiae and bruising on her back. She reports occasional pleuritic pain which "grabs her" when she takes a deep breath. She's been diaphoretic and had low-grade fevers with maximum temperature of 100.1 overnight. Appetite is good. There's been no further bleeding at the bone marrow biopsy site although she has continued to have occasional epistaxis. Urine output improved. Patient appears comfortable when seen. Her speech is fluent and she is alert. Respirations nonlabored with good airflow and clear breath sounds Regular cardiac rhythm Petechiae present on the extremities-especially the right hand and forearm ( blood pressure being checked in the right arm) 2 new large bruises/hematomas on the left upper back and a very faint bruise present right mid back in addition to the large hematoma right upper back present yesterday Trace edema Bone marrow biopsy reported to show granuloma on preliminary report per verbal report of Dr. 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 Blood cultures were obtained at outside clinic-I failed to call for results today before the office closed; continue antibiotics empirically until culture results can be obtained on Friday. Fluid balance +7 L since admission; rate of IV fluids decreased as patient is receiving large-volume blood products and other treatments. Demadex resumed at 50 mg daily-patient reports home dose is 100 mg--> home dose to be restarted tomorrow. Discussed with Dr. Brody. Formal bone marrow biopsy report pending. Hospital Course Summary Disclaimer: The visit summary below is not to be considered part of the above Progress Note. Hospital Course: 05/07/17 Impression Dehydration Tachycardia-present on admission Thrombocytopenia-present on admission Lymphadenopathy with right mastoid tenderness Type II diabetes Peripheral neuropathy Psoriatic arthritis GERD Pulmonary emboli with chronic anticoagulation Fibromyalgia Chronic back pain Obstructive sleep apnea Plan Admit patient, observation under the care of Dr. Haley for dehydration with tachycardia and thrombocytopenia. Did review outpatient labs from this morning done at [facility] this morning. Paint Supervisor was 1.2. Will obtain CT scan of soft tissue neck to further evaluate lymphadenopathy as well as right-sided mastoid tenderness. Place patient on cardiac telemetry to monitor given evidence tachycardia. Twelve -lead EKG is obtained during examination does reveal sinus tach, rate of 135. Will order PRN Lopressor 5 mg IV every 6 hrs PRN sustained tachycardia greater than 120. Obtain orthostatic vital signs BID Monitor accuchecks given DM Consultation with Dr Brody for further immunology evaluation and recommendation. Concern thrombocytopenia with lymphadenopathy Obtain Urine Paint Supervisor and urine sodium given hyponatremia Consult to pharmacy for Coumadin dosing management SCD to bilateral lower ext Home medications will need to be reviewed once reconciled Patient does wish to be a full code and this order is written Recheck CBC and BMP tomorrow morning to follow blood counts, renal function and electrolytes. Will discuss further orders and plan of care with today, Dr. Haley. At time of discharge medical care will return to primary care provider's in [place], [place], Dr True Casiano 05/08/17 Worsening thrombocytopenia overnight, extensive adenopathy on CT imaging of chest/abdomen/pelvis. No response to initial platelet pack-likely autoimmune destruction. Additional platelet is being given due to bleeding bone marrow biopsy site. High-dose steroids initiated in conjunction with FFP per Dr. Brody. Bone marrow obtained-results pending. 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 Tachycardia improving with fluid administration-continue. Fevers controlled with frequent doses acetaminophen/[place]. Continue ceftriaxone for sepsis-will contact Dr. Casiano in [place] tomorrow regarding culture results. Warfarin on hold due to thrombocytopenia/bleeding. SCDs for DVT prophylaxis. 05/09/16- IVIG infusion started by Dr Brody. Continued severe thrombocytopenia. Patient having some bleeding in the gums, nose, and petechiae rash to extremities noted today. Resume Demadex/decrease IV fluids-still receiving significant volume with other IV products.
[2017-05-09 16:21] VITALS: BMI 44.9
[2017-05-09] MEDS: CYCLOBENZAPRINE 10 MG TABLET PO SCH (21:03)
[2017-05-09] MEDS: TRAZODONE 100 MG TABLET PO SCH (21:06)
[2017-05-10] MEDS: HYDROCODONE/APAP 7.5 MG/325 MG TABLET PO PRN ×2 (06:56→21:36)
[2017-05-10] MEDS: OMEPRAZOLE 20 MG CAPSULE PO SCH (06:57)
[2017-05-10] MEDS: ALLOPURINOL 100 MG TABLET PO SCH (08:28)
[2017-05-10] MEDS: SENNA + DOCUSATE TABLET PO SCH ×2 (08:28→21:31)
[2017-05-10] MEDS: TORSEMIDE 20 MG TABLET PO SCH (08:28)
[2017-05-10] MEDS: DULOXETINE 60 MG CAPSULE PO SCH ×2 (08:29→21:32)
[2017-05-10] MEDS: GABAPENTIN 600 MG TABLET PO SCH ×3 (08:29→21:31)
[2017-05-10] MEDS: ATENOLOL 25 MG TABLET PO SCH (08:29)
[2017-05-10] MEDS: MethylPREDNISolone SOD SUCC 1,000 MG in NS 250ml 250 ML IV SCH (08:30)
[2017-05-10] MEDS: POLYETHYL GLYCOL 3350 17gm PACKET PO SCH (08:30)
--- NOTE | 2017-05-10 10:23 | Progress Note ---
Oncology Subjective Feeling better today. She feels like her lungs are less raspy. Had nosebleed last night but this is improved. Review of systems: Gen.: Negative for fever or chills, malaise Eyes: Negative for eye discharge, eye pain ENT: Positive for nosebleeds, negative for mouth sores Lymph: Positive enlarged lymph nodes, no night sweats Respiratory: Negative for cough, positive, mild shortness of breath, negative hemoptysis, Cardiac: Negative for chest pain, palpitations, positive for swelling GI: Negative for nausea, negative for vomiting, negative for diarrhea Genitourinary: No urgency, no dysuria, no hematuria Musculoskeletal: Positive for weakness, no joint pain Neurologic: Negative for headache, negative for focal weakness, negative for numbness Exam Vital signs: Temperature 96.6 F L 05/10/17 07:24 Pulse Rate 94 05/10/17 08:00 Respiratory Rate 18 05/10/17 07:24 Blood Pressure 142/88 H 05/10/17 07:27 Pulse Oximetry 93 05/10/17 07:24 - Constitutional no acute distress, obese - Routine HEENT Exam Head: Present: normocephalic Eye: Present: EOMI, PERRL ENT: Present: mucous membranes moist Nose: moist mucous membranes Throat: normal inspection, other (no blood present and posterior pharynx as yesterday 6 and) - Routine Neck Exam Present: supple, lymphadenopathy (left cervical 1 cm right submandibular cervical 2 cm, bilateral axillary) - Routine Respiratory Exam Present: decreased breath sounds, wheezes (few) - Routine Cardiovascular Exam Present: RRR, no murmur - Routine Abdominal Exam Present: soft, non distended, non tender. Absent: organomegaly - Routine Extremities Exam Present: edema (1-2+). Absent: cyanosis, clubbing - Routine Skin Exam Present: dry, warm, ecchymosis. Absent: rash - Routine Neurological Exam Present: alert, oriented X3, CN II-XII intact - Routine Psychiatric Exam Present: normal affect, normal thought process Oncology Results - Labs CBC & Chem 7: 05/10/17 04:33 05/10/17 04:33 Labs: Short CBC 05/09/17 05/10/17 Range/Units 12:17 04:33 WBC 4.4 L (4.5-11.0) T/MM3 Hgb 8.2 L (12-16) GM/DL Hct 27.1 L (36-46) % Plt Count 11 L* D 20 L* D (130-400) T/MM3 BMP 05/10/17 04:33 Sodium 143 Potassium 4.2 Chloride 110 H Carbon Dioxide 23 BUN 18.0 H Creatinine 1.1 D Glucose 201 H Calcium 7.8 L Liver Function 05/10/17 Range/Units 04:33 Total Bilirubin 0.30 (0.20-1.30) MG/DL AST 64 H (14-36) U/L ALT 42 (9-52) U/L Alkaline Phosphatase 59 (38-126) U/L Albumin 3.3 L (3.5-5.0) G/DL Urine 05/09/17 Range/Units 10:04 Urine Protein 22 MG/DL - Impressions Laboratory Tests 05/10/17 05/10/17 05/10/17 04:33 04:33 04:33 WBC 4.4 L Hgb 8.2 L Plt Count 20 L* D Myelocytes % 1.0 H Lymphocytes # (Manual) 0.7 L INR 1.33 H Calcium 7.8 L Lactate Dehydrogenase 927 H Positive and may, positive histone, positive double-stranded DNA positive, anticentromere positive Laboratory Tests 05/08/17 13:25 Anti-Nuclear Antibody Positive A Double Strand DNA Ab 443 H Anti-Centromere Ab 347 H Histone Antibodies 575 H - Imaging and Cardiology CT scan - abdomen Status: image reviewed by me Additional comments: Date of Exam: 05/08/17 Ordering Provider: Estrada Brody MD Type of Exam(s): CT chest abd/pelvis w con Reason for Exam(s): Lymphoma Indication: Lymphoma PROCEDURE: CT chest abd/pelvis w con: Encounter: Subsequent Comparison: Outside CT neck, chest, abdomen and pelvis dated March 12, 2017 Technique: Axial CT images were performed through the chest, abdomen and pelvis after the administration of intravenous contrast. Coronal and sagittal two-dimensional reformats. Automated Exposure Control and Iterative Reconstruction dose reducing techniques were utilized. Contrast: Omnipaque 300 99 mL Findings: Chest: Small bulla in both lungs. There is new nodularity in the right lower lobe on axial image #27. There is a new 6 mm nodule in the right middle lobe on image #17. There are additional small nodules along the right diaphragmatic surface on image #30. Stable area of possible nodular scar in the lingula. 7 mm left lower lobe nodule on image #31 appears new. No pneumonia, pleural effusion or pneumothorax. The central airways are patent. Axillary and mediastinal adenopathy has significantly worsened from the comparison study. [employer] right axillary node on axial image #12 measures 1.9 cm in short axis compared to 0.9 cm on the comparison. Right paratracheal node on image #11 measures 2 cm in short axis compared to 1.1 cm. AP window node on axial image #18 measures 2.2 cm in short axis compared to 1.3 cm. Additional paratracheal and subcarinal nodes have grown by a similar amount. Right hilar lymphadenopathy as well. Heart size is stable. No pericardial effusion. Great vessels are within normal limits. Abdomen/pelvis: The liver is grossly normal. Gallbladder is surgically absent. The spleen with accessory splenule, pancreas and adrenal glands are normal. Tiny low-attenuation renal foci bilaterally, too small to definitively characterize. Right renal scarring. Interval growth in a large left periaortic node on image #38 now measuring 4.5 cm in short axis compared to 2.9 cm previously. Additional periaortic and aortocaval nodes have significantly enlarged. Enlarging bilateral common and external iliac nodes are also seen. Right common iliac node on image #69 measures 2.2 cm in short axis, increased from 0.9 cm. Large right pelvic sidewall node on image #73 now measures 2.9 cm short axis compared to 1.8 cm. Left pelvic sidewall node on image #76 now measures 2.5 cm short axis compared to 1.1 cm. Enlarging left inguinal nodes. [employer] node on image #89 measures 1.6 cm short axis compared to 1 cm. The bladder is normal. Uterus is absent. Mild sigmoid diverticulosis without acute diverticulitis. No evidence of a bowel obstruction. Calcified density deep to the right abdominal wall probably related to prior hernia repair. Bone windows show degenerative and postoperative changes in the lumbar spine but no obvious lytic or blastic bony lesions. Impression: 1. Significant interval worsening in axillary, mediastinal, retroperitoneal and pelvic adenopathy as described and measured above. 2. New pulmonary nodules suspicious for metastases. Assessment and Plan Assessment and Plan: 1. 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 She has positive GILES with positive double-stranded DNA, centromere and histone antibody. She does carry a Diagnosis of lupus. Treatment of immune destruction secondary to lupus and ITP are the same. She is currently on immune globulin receiving 100 g yesterday. Platelets are up to 20 K today. We'll continue second dose of immune globulin today. She will also get her third dose of 1 g Solu-Medrol today. Anticoagulation has been reversed in INR today is 1.33. Currently no active bleeding site 2. Lymphadenopathy that is documented worse than 03/11/2017. We would need lymph node biopsy. Over the course of the last 2 days with the steroids the lymph nodes have decreased in size. Hopefully bone marrow will give us diagnosis although preliminary report is one of granulomas and possibly Hodgkin' s disease. 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 Will consider CT scan on Friday and possible surgical consultation and biopsy. 3. History of DVT and pulmonary embolism on chronic anticoagulation. Will restart Lomotil molecular weight heparin when platelets are above 50 K and patient is having no bleeding 4. Anemia. Hemoglobin 8.2 today and is gradually declined. She does have a positive YOLA but does not appear to have hemolysis as haptoglobin is within normal limits. Reticulocyte count was elevated. This suggests that this is secondary to blood loss from thrombocytopenia. Will follow closely and may need transfusion. She has been typed and screened prior to her immunoglobulin in could adversely affect type and crossmatch. Discussed with Dr. Pitts. Plan: 1. Day 2 IVIG 2. Day 3 Solu-Medrol 3. Follow counts 4. Follow LDH it is currently increasing will repeat in a.m. 5. Lymph node biopsy when platelets are adequate. Consider surgical consultation tomorrow. 6. Lymph nodes appear to be decreasing from steroids. May need to consider CT scans prior to biopsy. - Time Spent With Patient Total time spent is greater than 50% in coordination of care (as documented) at patient's floor/unit and/or counseling patient: 25 - 35 minutes
[2017-05-10] MEDS: CEFTRIAXONE 1 G in NS 100 ML IV SCH (12:00)
[2017-05-10] MEDS: ACETAMINOPHEN 325 MG PO SCH (14:00)
[2017-05-10] MEDS: DIPHENHYDRAMINE 50 MG/ML IVP SCH (14:00)
[2017-05-10] MEDS ORDERED: INSULIN ASPART 100unit/ml INJECTION SQ PRN (14:14)
[2017-05-10] MEDS: [UNRECOGNIZED DRUG - MIXTURE] IV SCH (14:31)
[2017-05-10] MEDS: INSULIN ASPART 100unit/ml INJECTION SQ PRN ×2 (14:31→21:34)
--- NOTE | 2017-05-10 15:08 | Progress Note ---
- Date 05/10/17 Subjective: 66 y/o female who lives in [place], [place]. Her PCP is Dr. True Casiano. Patient has been ill since April 20 and has had multiple visits to the primary care provider's office. Initially she was diagnosed with influenza A on 04/22. She completed a round of Tamiflu, however, symptoms did not improve. She returned to primary care provider's office on April 30 for reevaluation, at which time she was then started on Augmentin twice a day for 10 days as well as an albuterol MDI inhaler for wheezing. Again, symptoms did not improve. On May 05, 2017 she began having right cervical adenopathy as well as right mastoid pain. Today she returned back to primary care provider's office for reevaluation given persistent symptoms and worsening pain. Further workup was performed at the clinic including a chest x-ray that was negative. Laboratory studies were obtained as follows- WBC count 7.2, hemoglobin 12.7, hematocrit 39.1, platelet count 23, 67% segs, 4% bands. INR is 3.43. Sodium is 135, potassium 3.2, BUN 19, creatinine 1.2, glucose 201, CRP 12.5, troponin negative , TSH 2.32, strep throat culture was negative. Blood cultures were obtained. Urinalysis was negative. She was given IV fluids as well as 2 gram of IV Rocephin at the clinic. She continued to be tachycardic. Given the new findings of thrombocytopenia, persistent tachycardia and concern for dehydration, [facility] hospitalist services were contacted and accepted patient for direct admission under the care of Dr. Haley for further evaluation and treatment. Given her oncologist is Dr. Brody. Patient is seen on arrival to [facility]. She is noted to be tachycardic in the 130s. She is able to give detailed history regarding ongoing illness and treatment. She also reveals that she has had a 10 pound weight loss over the last several weeks during this illness. She reports she does have a history of non-Hodgkin's lymphoma and does continue to follow with Dr. Brody. She reports that he has been observing a "neck mass" on the left side. He has also been monitoring enlarged lymph nodes in the outpatient setting. Today, she [facility] the [facility] Family in the room. She has been up to the BR without difficulty. She does get a little short of breath with activity but is much better. Her right mastoid is less tender to palpation. She is eating well. She denies lightheadedness or dizziness. She denies cough or sputum production. She denies chest discomfort or palpitations. She does state that her legs are more swollen than usual. She has no nausea or vomiting. She has no abdominal pain. She did have a bowel movement this morning. I spoke with Dr. Brody today and he thinks she does have lupus. She reports they been trying to diagnose her with that for some time now but nothing has ever been positive before. Objective Vital signs: Temperature 96.6 F L 05/10/17 07:24 Pulse Rate 94 05/10/17 08:00 Respiratory Rate 18 05/10/17 07:24 Blood Pressure 142/88 H 05/10/17 07:27 Pulse Oximetry 93 05/10/17 07:24 Height/Weight/BMI: Height 1.55 m Weight 108 kg Body Mass Index 44.9 Comments: Gen: alert and oriented. NAD Skin: warm and dry HEENT: NC/AT PERRL, EOMI, Sclera, lids and conjunctiva wnl. MMM. OP clear. Neck: No JVD, Carotids 2+ without bruits Lungs: Diminished but clear. No rales, rhonchi or wheezes CV: regular. No murmur, rub or gallop Abd: soft. +BS. NT/ND MS: 1-2+ edema. Good strength and ROM Neuro: No focal deficits Results - Labs CBC & Chem 7: 05/10/17 04:33 05/10/17 04:33 Assessment and Plan (1) Dehydration Current visit: Yes Status: Acute (2) Thrombocytopenia Current visit: Yes Status: Acute Assessment and Plan: Impression/Plan 1. Dehydration-POA with FeNa 0.29% -associated Tachycardia-POA -She appears euvolemic if not vol overloaded at present 2. Thrombocytopenia-POA -ITP vs Lupus immune destruction -IVIG per Dr. Brody (day 2) -1 g Solu Medrol per Dr. Brody (day 3) 3. Lymphadenopathy, extensive -Will need LN biopsy -CT on Friday with possible surgical consult 4. Right mastoid tenderness, possible phlegmon inferior right auditory canal -This appears to be a bit better today 5. Progressive anemia -+YOLA, no hemolysis (haptoglobin nl) -Retic elevated -?blood loss -Transfuse as needed 6. Type II diabetes -SSI -On metformin at home. 7. Peripheral neuropathy -On gabapentin at home 8. Psoriatic arthritis 9. GERD -PPI 10. Pulmonary emboli with chronic anticoagulation -OAC on hold -Plan to start Lovenox when platelets are above 50 K and patient is having no bleeding 11. Supratherapeutic INR -Normalized at present 12. Fibromyalgia -Pain control 13. Chronic back pain -Pain control 14. Obstructive sleep apnea -CPAP at night 15. Hyperlipidemia -On crestor 20mg at home-holding here 16. Prophylaxis -PPI -Lovenox will start once Plts are above 50,000 and no bleeding -SCDs and ambulation - Physician Narrative Narrative: Date: 05/10/17 Time: 1505 Hospital Course Summary Disclaimer: The visit summary below is not to be considered part of the above Progress Note. Hospital Course: 05/07/17 Impression Dehydration Tachycardia-present on admission Thrombocytopenia-present on admission Lymphadenopathy with right mastoid tenderness Type II diabetes Peripheral neuropathy Psoriatic arthritis GERD Pulmonary emboli with chronic anticoagulation Fibromyalgia Chronic back pain Obstructive sleep apnea Plan Admit patient, observation under the care of Dr. Haley for dehydration with tachycardia and thrombocytopenia. Did review outpatient labs from this morning done at [facility] this morning. [employer] was 1.2. Will obtain CT scan of soft tissue neck to further evaluate lymphadenopathy as well as right-sided mastoid tenderness. Place patient on cardiac telemetry to monitor given evidence tachycardia. Twelve -lead EKG is obtained during examination does reveal sinus tach, rate of 135. Will order PRN Lopressor 5 mg IV every 6 hrs PRN sustained tachycardia greater than 120. Obtain orthostatic vital signs BID Monitor accuchecks given DM Consultation with Dr Brody for further immunology evaluation and recommendation. Concern thrombocytopenia with lymphadenopathy Obtain Urine [place] [place] and urine sodium given hyponatremia Consult to pharmacy for Coumadin dosing management SCD to bilateral lower ext Home medications will need to be reviewed once reconciled Patient does wish to be a full code and this order is written Recheck CBC and BMP tomorrow morning to follow blood counts, renal function and electrolytes. Will discuss further orders and plan of care with today, Dr. Haley. At time of discharge medical care will return to primary care provider's in [place], [place], Dr True Casiano 05/08/17 Worsening thrombocytopenia overnight, extensive adenopathy on CT imaging of chest/abdomen/pelvis. No response to initial platelet pack-likely autoimmune destruction. Additional platelet is being given due to bleeding bone marrow biopsy site. High-dose steroids initiated in conjunction with FFP per Dr. Brody. Bone marrow obtained-results pending. 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 Tachycardia improving with fluid administration-continue. Fevers controlled with frequent doses acetaminophen/[place]. Continue ceftriaxone for sepsis-will contact Dr. Casiano in [place] tomorrow regarding culture results. Warfarin on hold due to thrombocytopenia/bleeding. SCDs for DVT prophylaxis. 05/09/16- IVIG infusion started by Dr Brody. Continued severe thrombocytopenia. Patient having some bleeding in the gums, nose, and petechiae rash to extremities noted today. Resume Demadex/decrease IV fluids-still receiving significant volume with other IV products.
[2017-05-10] MEDS: NS with KCL 20 mEq 1,000 ML IV SCH (16:31)
[2017-05-10] MEDS: CYCLOBENZAPRINE 10 MG TABLET PO SCH (21:30)
[2017-05-10] MEDS: TRAZODONE 100 MG TABLET PO SCH (21:32)
[2017-05-10] MEDS: SALINE FLUSH 10ml SYRINGE IV PRN (21:36)
[2017-05-11] MEDS: INSULIN ASPART 100unit/ml INJECTION SQ PRN ×4 (06:22→20:21)
[2017-05-11] MEDS: OMEPRAZOLE 20 MG CAPSULE PO SCH (06:53)
[2017-05-11] MEDS: ATENOLOL 25 MG TABLET PO SCH (09:13)
[2017-05-11] MEDS: TORSEMIDE 20 MG TABLET PO SCH (09:13)
[2017-05-11] MEDS: DULOXETINE 60 MG CAPSULE PO SCH ×2 (09:14→21:49)
[2017-05-11] MEDS: POLYETHYL GLYCOL 3350 17gm PACKET PO SCH (09:14)
[2017-05-11] MEDS: ALLOPURINOL 100 MG TABLET PO SCH (09:14)
[2017-05-11] MEDS: GABAPENTIN 600 MG TABLET PO SCH ×3 (09:14→21:50)
[2017-05-11] MEDS: MethylPREDNISolone SOD SUCC 1,000 MG in NS 250ml 250 ML IV SCH (09:14)
[2017-05-11] MEDS: SENNA + DOCUSATE TABLET PO SCH ×3 (09:15→21:50)
[2017-05-11] MEDS: HYDROCODONE/APAP 7.5 MG/325 MG TABLET PO PRN ×3 (09:52→22:42)
[2017-05-11] MEDS: CEFTRIAXONE 1 G in NS 100 ML IV SCH (11:26)
--- NOTE | 2017-05-11 12:54 | Progress Note ---
- Date 05/11/17 Subjective: 66 y/o female who lives in [place], [place]. Her PCP is Dr. True Casiano. Patient has been ill since April 20 and has had multiple visits to the primary care provider's office. Initially she was diagnosed with influenza A on 04/22. She completed a round of Tamiflu, however, symptoms did not improve. She returned to primary care provider's office on April 30 for reevaluation, at which time she was then started on Augmentin twice a day for 10 days as well as an albuterol MDI inhaler for wheezing. Again, symptoms did not improve. On May 05, 2017 she began having right cervical adenopathy as well as right mastoid pain. Today she returned back to primary care provider's office for reevaluation given persistent symptoms and worsening pain. Further workup was performed at the clinic including a chest x-ray that was negative. Laboratory studies were obtained as follows- WBC count 7.2, hemoglobin 12.7, hematocrit 39.1, platelet count 23, 67% segs, 4% bands. INR is 3.43. Sodium is 135, potassium 3.2, BUN 19, creatinine 1.2, glucose 201, CRP 12.5, troponin negative , TSH 2.32, strep throat culture was negative. Blood cultures were obtained. Urinalysis was negative. She was given IV fluids as well as 2 gram of IV Rocephin at the clinic. She continued to be tachycardic. Given the new findings of thrombocytopenia, persistent tachycardia and concern for dehydration, [facility] hospitalist services were contacted and accepted patient for direct admission under the care of Dr. Haley for further evaluation and treatment. Given her oncologist is Dr. Brody. Patient is seen on arrival to [facility]. She is noted to be tachycardic in the 130s. She is able to give detailed history regarding ongoing illness and treatment. She also reveals that she has had a 10 pound weight loss over the last several weeks during this illness. She reports she does have a history of non-Hodgkin's lymphoma and does continue to follow with Dr. Brody. She reports that he has been observing a "neck mass" on the left side. He has also been monitoring enlarged lymph nodes in the outpatient setting. Today, she is up in the chair with breakfast. She is getting up to the bathroom but does admit to some mild shortness of breath with that. Her right mastoid is less tender to palpation. She does feel however that her right now and glandular area is more swollen and more tender today. She is eating well. She denies lightheadedness or dizziness. She denies cough or sputum production. She denies chest discomfort or palpitations. She thinks her legs are less swollen and tight today. She has no nausea or vomiting. She has no abdominal pain. She is having small bowel movements. Dr. Lee has seen her today as well and has ordered a unit of packed red blood cells. Objective Vital signs: Temperature 97.2 F 05/11/17 07:47 Pulse Rate 85 05/11/17 08:00 Respiratory Rate 20 05/11/17 07:48 Blood Pressure 151/88 H 05/11/17 07:48 Pulse Oximetry 96 05/11/17 07:48 Height/Weight/BMI: Height 1.55 m Weight 115 kg Body Mass Index 44.9 Comments: Gen: alert and oriented. NAD Skin: warm and dry HEENT: NC/AT PERRL, EOMI, Sclera, lids and conjunctiva wnl. MMM. OP clear. Neck: No JVD, Carotids 2+ without bruits. There is TTP over the right side of her neck Lungs: Diminished but clear. No rales, rhonchi or wheezes CV: regular. No murmur, rub or gallop Abd: soft. +BS. NT/ND MS: 1+ edema. Good strength and ROM Neuro: No focal deficits Results - Labs CBC & Chem 7: 05/11/17 03:56 05/11/17 03:56 Assessment and Plan (1) Dehydration Current visit: Yes Status: Acute (2) Thrombocytopenia Current visit: Yes Status: Acute Assessment and Plan: Impression/Plan 1. Dehydration-POA with FeNa 0.29% -associated Tachycardia-POA -She appears euvolemic if not vol overloaded at present-She is on Demadex 100mg daily 2. Thrombocytopenia-POA -ITP vs Lupus immune destruction -IVIG per Dr. Brody received 2 days -1 g Solu Medrol per Dr. Brody received for 3 days -Plts up to 47,000 today 3. Lymphadenopathy, extensive -Will need LN biopsy -CT of head and neck and chest on Friday with possible surgical consult 4. Right mastoid tenderness, possible phlegmon inferior right auditory canal -Less TTP there, TTP with swelling over right neck now. 5. Progressive anemia -+YOLA, no hemolysis (haptoglobin nl) -Retic elevated -Dr. Brody has ordered one PRBC transfused today, Lasix after. 6. Type II diabetes -SSI -On metformin at home. -Off steroids now so continue to use just SSI 7. Peripheral neuropathy -On gabapentin 8. Psoriatic arthritis 9. GERD -PPI 10. Pulmonary emboli with chronic anticoagulation -OAC on hold -Lovenox 40mg SQ daily 11. Supratherapeutic INR -Normalized at present (1.27) 12. Fibromyalgia -Pain control 13. Chronic back pain -Pain control 14. Obstructive sleep apnea -CPAP at night 15. Hyperlipidemia -On crestor 20mg at home-holding here 16. HTN -Increase atenolol today to 25mg daily 17. Prophylaxis -PPI -Lovenox started per Dr. Brody recommendation -SCDs and ambulation DVT Prophylaxis: SCD's GI Prophylaxis: Protonix Resuscitation Status: Full Code - Time spent with patient Time with patient PN: 15 minutes - Physician Narrative Physician: Rekha Roland MD Narrative: Date: 05/11/17 Time: 1250 Hospital Course Summary Disclaimer: The visit summary below is not to be considered part of the above Progress Note. Hospital Course: 05/07/17 Impression Dehydration Tachycardia-present on admission Thrombocytopenia-present on admission Lymphadenopathy with right mastoid tenderness Type II diabetes Peripheral neuropathy Psoriatic arthritis GERD Pulmonary emboli with chronic anticoagulation Fibromyalgia Chronic back pain Obstructive sleep apnea Plan Admit patient, observation under the care of Dr. Haley for dehydration with tachycardia and thrombocytopenia. Did review outpatient labs from this morning done at [facility] this morning. Athletics Director was 1.2. Will obtain CT scan of soft tissue neck to further evaluate lymphadenopathy as well as right-sided mastoid tenderness. Place patient on cardiac telemetry to monitor given evidence tachycardia. Twelve -lead EKG is obtained during examination does reveal sinus tach, rate of 135. Will order PRN Lopressor 5 mg IV every 6 hrs PRN sustained tachycardia greater than 120. Obtain orthostatic vital signs BID Monitor accuchecks given DM Consultation with Dr Brody for further immunology evaluation and recommendation. Concern thrombocytopenia with lymphadenopathy Obtain Urine Athletics Director and urine sodium given hyponatremia Consult to pharmacy for Coumadin dosing management SCD to bilateral lower ext Home medications will need to be reviewed once reconciled Patient does wish to be a full code and this order is written Recheck CBC and BMP tomorrow morning to follow blood counts, renal function and electrolytes. Will discuss further orders and plan of care with today, Dr. Haley. At time of discharge medical care will return to primary care provider's in [place], [place], Dr True Casiano 05/08/17 Worsening thrombocytopenia overnight, extensive adenopathy on CT imaging of chest/abdomen/pelvis. No response to initial platelet pack-likely autoimmune destruction. Additional platelet is being given due to bleeding bone marrow biopsy site. High-dose steroids initiated in conjunction with FFP per Dr. Brody. Bone marrow obtained-results pending. 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 Tachycardia improving with fluid administration-continue. Fevers controlled with frequent doses acetaminophen/Hosmer. Continue ceftriaxone for sepsis-will contact Dr. Casiano in [place] tomorrow regarding culture results. Warfarin on hold due to thrombocytopenia/bleeding. SCDs for DVT prophylaxis. 05/09/16- IVIG infusion started by Dr Brody. Continued severe thrombocytopenia. Patient having some bleeding in the gums, nose, and petechiae rash to extremities noted today. Resume Demadex/decrease IV fluids-still receiving significant volume with other IV products.
--- NOTE | 2017-05-11 13:13 | Progress Note ---
Oncology Subjective Feeling well today. She has not had any further nosebleeds. She does have cough that is nonproductive. Has not had a bowel movement in feels slightly constipated. Lymph nodes seem to be shrinking. Review of systems: Gen.: Negative for fever or chills, malaise Eyes: Negative eye discharge, eye pain ENT: Negative for nosebleeds, mouth sores Lymph: Positive enlarged lymph nodes, no night sweats Respiratory: Positive for cough, negative for shortness of breath, hemoptysis, Cardiac: Negative for chest pain, palpitations, positive for swelling GI: Negative for nausea, negative for vomiting, negative for diarrhea, may be slightly constipated Genitourinary: No urgency, no dysuria, no hematuria Musculoskeletal: Positive for weakness, no joint pain Neurologic: Negative for headache, negative for focal weakness, negative for numbness Exam Vital signs: Temperature 97.2 F 05/11/17 07:47 Pulse Rate 85 05/11/17 08:00 Respiratory Rate 20 05/11/17 07:48 Blood Pressure 151/88 H 05/11/17 07:48 Pulse Oximetry 96 05/11/17 07:48 - Constitutional no acute distress, obese - Routine HEENT Exam Head: Present: normocephalic Eye: Present: EOMI, PERRL Throat: normal inspection - Routine Neck Exam Present: supple, lymphadenopathy (smaller than yesterday) - Routine Respiratory Exam Present: CTA bilaterally. Absent: accessory muscle use, rales - Routine Cardiovascular Exam Present: RRR, no murmur - Routine Abdominal Exam Present: soft, non distended, non tender. Absent: organomegaly - Routine Extremities Exam Present: edema (1+). Absent: cyanosis, clubbing - Routine Back/Spine/Pelvis Exam Back/Spine: Absent: muscle spasm, erythema - Routine Skin Exam Present: dry, warm, ecchymosis - Routine Neurological Exam Present: alert, oriented X3, CN II-XII intact - Routine Psychiatric Exam Present: normal affect, normal thought process Oncology Results - Labs CBC & Chem 7: 05/11/17 03:56 05/11/17 03:56 Labs: Short CBC 05/11/17 Range/Units 03:56 WBC 7.1 D (4.5-11.0) T/MM3 Hgb 7.8 L (12-16) GM/DL Hct 26.1 L (36-46) % Plt Count 47 L D (130-400) T/MM3 BMP 05/11/17 03:56 Sodium 142 Potassium 3.7 Chloride 108 H Carbon Dioxide 24 BUN 25.0 H Creatinine 1.1 Glucose 226 H Calcium 7.5 L Liver Function 05/11/17 Range/Units 03:56 Total Bilirubin 0.30 (0.20-1.30) MG/DL AST 69 H (14-36) U/L ALT 41 (9-52) U/L Alkaline Phosphatase 62 (38-126) U/L Albumin 3.3 L (3.5-5.0) G/DL Laboratory Tests 05/08/17 05/10/17 05/11/17 04:00 04:33 03:56 WBC 7.1 D Hgb 7.8 L Plt Count 47 L D INR Creatinine AST Lactate Dehydrogenase 1262 H 927 H 05/11/17 05/11/17 03:56 03:56 WBC Hgb Plt Count INR 1.27 H Creatinine 1.1 AST 69 H Lactate Dehydrogenase 761 H Assessment and Plan Assessment and Plan: 1. 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 She has positive GILES with positive double-stranded DNA, centromere and histone antibody. She does carry a Diagnosis of lupus. Treatment of immune destruction secondary to lupus and ITP are the same. She completed immune globulin receiving 100 g 05/09 and 05/10. Platelets are up to 47 K today. Isaac will also get her third dose of 1 g Solu -Medrol on 05/11/16. Anticoagulation has been reversed in INR today is 1.27. Currently no active bleeding site 2. Lymphadenopathy that is documented worse than 03/11/2017. We would need lymph node biopsy. Over the course of the last 2 days with the steroids the lymph nodes have decreased in size. Hopefully bone marrow will give us diagnosis although preliminary report is one of granulomas and possibly Hodgkin' s disease. 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 Will repeat CT scan tomorrow and await bone marrow biopsy 3. History of DVT and pulmonary embolism on chronic anticoagulation. Will restart Lomotil molecular weight heparin when platelets are above 50 K and patient is having no bleeding. Platelets are up to 47. I think it would be prudent to start low molecular weight heparin at a prophylactic dose 4. Anemia. Hemoglobin 7.8 today and is gradually declining. She does have a positive YOLA but does not appear to have hemolysis as haptoglobin is within normal limits. Reticulocyte count was elevated. This suggests that this is secondary to blood loss from thrombocytopenia. Will follow closely and may need transfusion. She has been typed and screened prior to her immunoglobulin in could adversely affect type and crossmatch. With hemoglobin continuing to decline I feel be prudent to proceed with transfusion 5. Elevated LDH. Currently improving 05/08/16 [id number] 05/10/16 LDH 927 05/11/17 LDH 761 6. Positive GILES with positive histone, double-stranded DNA and centromere. This could be contributing to the thrombocytopenia and lymphadenopathy. Patient has been on steroids for psoriatic arthritis. We'll continue to follow Discussed with Dr. Pitts. Plan: 1. Transfuse 1 unit packed red blood cells 2. Day 3 Solu-Medrol 3. Follow counts 4. Follow LDH it is currently increasing will repeat in a.m. 5. Lymph node biopsy when platelets are adequate. Consider surgical consultation tomorrow. 6. Lymph nodes appear to be decreasing from steroids. May need to consider CT scans prior to biopsy. - Time Spent With Patient Total time spent is greater than 50% in coordination of care (as documented) at patient's floor/unit and/or counseling patient: 25 - 35 minutes
[2017-05-11] MEDS ORDERED: ATENOLOL 25 MG TABLET PO SCH (13:15)
[2017-05-11] MEDS ORDERED: NS FLUSH BAG 500ml IV PRN (13:19)
[2017-05-11] MEDS ORDERED: FUROSEMIDE 20 MG/2 ML INJECTION IVP ONE (13:19)
[2017-05-11] MEDS ORDERED: ATENOLOL 25 MG TABLET PO ONE (14:30)
[2017-05-11] MEDS: ENOXAPARIN 40 MG/0.4 ML INJECTION SQ SCH (15:16)
[2017-05-11] MEDS: CYCLOBENZAPRINE 10 MG TABLET PO SCH (21:49)
[2017-05-11] MEDS: TRAZODONE 100 MG TABLET PO SCH (21:50)
[2017-05-12] MEDS: OMEPRAZOLE 20 MG CAPSULE PO SCH (05:45)
[2017-05-12] MEDS: INSULIN ASPART 100unit/ml INJECTION SQ PRN (05:51)
--- NOTE | 2017-05-12 09:17 | CT Scan Report ---
Indication: adenopathy CT chest wo con: Comparison: None Technique: Patient scanned from above the thoracic inlet to below the diaphragm utilizing dose reduction imaging technology with reformatted sagittal and coronal image planes. Findings: Patient shows a port in the right upper pectoral region. Patient showed scattered adenopathy the Spear mediastinum with largest node identified in the left aortopulmonary window measuring 2 cm. Some additional nodes are also identified. Heart is mildly prominent without evidence of significant failure. Pulmonary parenchyma shows mild chronic change some scattered blebs and bulla. Bilateral scattered areas of hazy density are appreciated. No significant consolidation or pleural effusion noted. Limited imaging below the diaphragm showed no acute findings. Reformatted imaging shows mild degenerative changes in the spine with bridging osteophytes but no marked fracture or malalignment. Impression: 1. Mild cardiac prominence although, no overt failure suggested. 2. Scattered lymph nodes in the Spear mediastinum and the aortopulmonary window which are somewhat indeterminant. 3. Bilateral chronic appearing lung changes with scattered blebs and bulla and some subtle patchy areas of more localized pulmonary parenchymal density. .
--- NOTE | 2017-05-12 09:26 | CT Scan Report ---
Indication: Adenopathy CT soft tissue neck wo con: Comparison: CT chest same date Technique: Nonenhanced axial imaging performed from the midbrain to the upper chest Findings: Patient shows multiple bilateral cervical nodes which are identified on both right and left sides from the upper cervical chains down to the anterior and posterior chains with nodes measuring between 5 to 6 mm up to some of the larger nodes measuring 1.5 cm. Nasopharyngeal and oral frontal soft tissues seemed unremarkable. Imaging into the upper chest also showed some Spear mediastinal adenopathy in the aortopulmonary window adenopathy. Lateral view shows some mild degenerative changes in the cervical spine with some disc space narrowing and hypertrophic change. No major bony structures lesions were noted. Impression: 1. Bilateral cervical adenopathy in anterior and posterior lymph node chains with nodes measuring from about 5 mm up to 1.5 cm. 2. Superior mediastinal adenopathy. 3. No significant acute sinus abnormality nor abnormal soft tissue prominence in the nasopharyngeal or oropharyngeal soft tissues. 4. CT PET fusion may be a consideration to better assess the level of metabolic activity involving these nodes. .
[2017-05-12] MEDS: DULOXETINE 60 MG CAPSULE PO SCH ×2 (09:37→21:12)
[2017-05-12] MEDS: ALLOPURINOL 100 MG TABLET PO SCH (09:37)
[2017-05-12] MEDS: GABAPENTIN 600 MG TABLET PO SCH ×3 (09:37→21:12)
[2017-05-12] MEDS: ATENOLOL 25 MG TABLET PO SCH (09:37)
[2017-05-12] MEDS: ENOXAPARIN 40 MG/0.4 ML INJECTION SQ SCH (09:38)
[2017-05-12] MEDS: TORSEMIDE 20 MG TABLET PO SCH (09:38)
[2017-05-12] MEDS: SENNA + DOCUSATE TABLET PO SCH ×2 (09:38→21:12)
[2017-05-12] MEDS: POLYETHYL GLYCOL 3350 17gm PACKET PO SCH (09:38)
[2017-05-12] MEDS: HYDROCODONE/APAP 7.5 MG/325 MG TABLET PO PRN ×3 (09:44→22:13)
[2017-05-12] MEDS: INSULIN REGULAR, HUMAN 100 UNIT/ML INJECTION SQ PRN ×3 (11:06→21:11)
[2017-05-12] MEDS: CEFTRIAXONE 1 G in NS 100 ML IV SCH (12:22)
--- NOTE | 2017-05-12 12:49 | Progress Note ---
- Date 05/12/17 Subjective: Ava is almost feeling back to her normal self. She doesn't feel terribly weak or dizzy. She denies any shortness of breath but continues to have a cough on occasion. She complains of a sore mouth. She denies any nausea or vomiting. She states that her legs are always swollen but hasn't noticed any recent change. She feels like that the swollen lymph nodes in her neck have done down in size. Objective Vital signs: Temperature 98.0 F 05/12/17 07:51 Pulse Rate 80 05/12/17 10:44 Respiratory Rate 16 05/12/17 07:51 Blood Pressure 155/86 H 05/12/17 10:44 Pulse Oximetry 95 05/12/17 07:51 Height/Weight/BMI: Height 1.55 m Weight 113.8 kg Body Mass Index 44.9 - Constitutional Present: no acute distress, well nourished, well developed - Routine HEENT Exam Head: Present: normocephalic Eye: Absent: conjunctival icterus, scleral injection ENT: Absent: oropharynx clear (thrush) - Routine Respiratory Exam Present: CTA bilaterally - Routine Cardiovascular Exam Present: RRR, S1, S2 - Routine Abdominal Exam Present: soft, normoactive bowel sounds, non distended. Absent: tenderness - Routine Extremities Exam Present: edema (1+ bilateral lower extremities) - Routine Musculoskeletal Exam Musculoskeletal: Present: no joint swelling - Routine Skin Exam Present: intact, dry, warm - Routine Neurological Exam Present: alert, oriented X3, normal speech - Routine Lymphatic Exam Lymphatic: Present: adenopathy (mild cervical lymphadenopathy) - Routine Psychiatric Exam Present: normal affect, normal thought process, cooperative Results - Labs CBC & Chem 7: 05/12/17 04:24 05/12/17 04:24 Assessment and Plan (1) Dehydration Current visit: Yes Status: Acute (2) Thrombocytopenia Current visit: Yes Status: Acute Assessment and Plan: Impression Dehydration-POA with FeNa 0.29% and associated tachycardia -- resolved Thrombocytopenia-POA Lymphadenopathy, extensive Right mastoid tenderness, possible phlegmon inferior right auditory canal Thrush Hypokalemia Progressive anemia Pulmonary emboli, chronically anticoagulated - oral anticoagulant on hold Type II diabetes Peripheral neuropathy Psoriatic arthritis GERD Chronic back pain, fibromyalgia Hyperlipidemia, hypertension Obstructive sleep apnea, on CPAP Plan Thrombocytopenia-POA -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 Brody -Plts up to 77,000 today Lymphadenopathy, extensive -Lymph node biopsy to be arranged by Dr. Brody -CT of head and neck and chest on Friday with possible surgical consult - per Dr. Ronn Urena -Nysatatin started 05/12/17 Hypokalemia -KDur given 05/12/17 -Mg stable Right mastoid tenderness, possible phlegmon inferior right auditory canal - improving Progressive anemia -+YOLA, no hemolysis (haptoglobin nml) -Retic elevated -s/p PRBC transfusion DVT Prophylaxis: Lovenox Resuscitation Status: Full Code - Physician Narrative Physician: Isabella Haley MD Narrative: Date: 05/12/17 Time: 2199 I have independently evaluated and examined this patient. I reviewed the chart, the patient's history, and the ENTRY LEVEL BUYER/PA's documented findings as above. We discussed and formulated the assessment and plan as above with additions as below: Mrs. Antony was seen earlier today; blood transfusion was still pending at that time as blood had not yet been received from [place] but nursing indicates that a unit has been crossmatched and is to be transported to [facility] late this afternoon or early evening. Patient reports resolution of right mastoid pain and less swelling in her neck but persistent exertional dyspnea and vague lightheadedness. I concur with patient's assessment believe there is less adenopathy on neck exam ; there is residual left supraclavicular palpable adenopathy. Respirations are nonlabored with good airflow and clear breath sounds +1 pedal edema, regular cardiac rhythm 4% reticulocytes, LDH 691-improving Positive GILES with positive double strand DNA, positive anticentromere antibody, and positive histone antibodies noted. Bone marrow biopsy pending. Warfarin remains on hold; lymph node biopsy planned for tomorrow-discussed with Dr. Brody and Dr. Dumont. CT of soft tissue neck and chest CT reviewed by myself-adenopathy persists, will review with radiology tomorrow and compared to studies done last week. Persistent hyperglycemia, metformin on hold due to multiple studies being obtained. Corrective insulin increased earlier today and we'll add Lantus tonight. Renal function is stable, if no major interventions planned will resume metformin in one or 2 days. PCPs office contacted for blood culture results earlier today-fax not received, will attempt again tomorrow. Hospital Course Summary Disclaimer: The visit summary below is not to be considered part of the above Progress Note. Hospital Course: 05/07/17 Impression Dehydration Tachycardia-present on admission Thrombocytopenia-present on admission Lymphadenopathy with right mastoid tenderness Type II diabetes Peripheral neuropathy Psoriatic arthritis GERD Pulmonary emboli with chronic anticoagulation Fibromyalgia Chronic back pain Obstructive sleep apnea Plan Admit patient, observation under the care of Dr. Haley for dehydration with tachycardia and thrombocytopenia. Did review outpatient labs from this morning done at [facility] this morning. Wrapper Leaf Inspector was 1.2. Will obtain CT scan of soft tissue neck to further evaluate lymphadenopathy as well as right-sided mastoid tenderness. Place patient on cardiac telemetry to monitor given evidence tachycardia. Twelve -lead EKG is obtained during examination does reveal sinus tach, rate of 135. Will order PRN Lopressor 5 mg IV every 6 hrs PRN sustained tachycardia greater than 120. Obtain orthostatic vital signs BID Monitor accuchecks given DM Consultation with Dr Brody for further immunology evaluation and recommendation. Concern thrombocytopenia with lymphadenopathy Obtain Urine Wrapper Leaf Inspector and urine sodium given hyponatremia Consult to pharmacy for Coumadin dosing management SCD to bilateral lower ext Home medications will need to be reviewed once reconciled Patient does wish to be a full code and this order is written Recheck CBC and BMP tomorrow morning to follow blood counts, renal function and electrolytes. Will discuss further orders and plan of care with today, Dr. Haley. At time of discharge medical care will return to primary care provider's in [place], [place], Dr True Casiano 05/08/17 Worsening thrombocytopenia overnight, extensive adenopathy on CT imaging of chest/abdomen/pelvis. No response to initial platelet pack-likely autoimmune destruction. Additional platelet is being given due to bleeding bone marrow biopsy site. High-dose steroids initiated in conjunction with FFP per Dr. Brody. Bone marrow obtained-results pending. 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 Tachycardia improving with fluid administration-continue. Fevers controlled with frequent doses acetaminophen/[place]. Continue ceftriaxone for sepsis-will contact Dr. Casiano in [place] tomorrow regarding culture results. Warfarin on hold due to thrombocytopenia/bleeding. SCDs for DVT prophylaxis. 05/09/16- IVIG infusion started by Dr Brody. Continued severe thrombocytopenia. Patient having some bleeding in the gums, nose, and petechiae rash to extremities noted today. Resume Demadex/decrease IV fluids-still receiving significant volume with other IV products. 05/10/17: Currently euvolemic. Continued IVIG and Solu-Medrol per Dr. Brody. Platelets 20K. 05/11/17: PRBC transfusion (hgb decreased from 10.2 -->7.8). Platelets improved to 47 and lymph nodes were decreasing in size. 05/12/17: Thrush diagnosed and Nystatin was started. Platelets up to 77. On Lovenox for PPX. Mild hypokalemia (3.3) and KDur was given.
[2017-05-12] MEDS ORDERED: NYSTATIN 500,000 units/5 ml ORAL LIQUID PO SCH (13:00)
[2017-05-12] MEDS: CLOTRIMAZOLE 10 MG TROCHE MM SCH ×3 (14:48→21:11)
--- NOTE | 2017-05-12 17:05 | Progress Note ---
Oncology Subjective Had slight nosebleed last PM while picking at nose. Otherwise doing well. Tolerated steroids and IVIG well. Had BM yesterday and today. Exam Vital signs: Temperature 97.8 F 05/12/17 15:36 Pulse Rate 66 05/12/17 15:36 Respiratory Rate 18 05/12/17 15:36 Blood Pressure 147/81 H 05/12/17 15:36 Pulse Oximetry 96 05/12/17 15:36 - Constitutional no acute distress, obese - Routine HEENT Exam Head: Present: normocephalic Eye: Present: EOMI, PERRL. Absent: scleral injection Throat: normal inspection - Routine Neck Exam Present: supple, lymphadenopathy - Routine Respiratory Exam Present: CTA bilaterally - Routine Cardiovascular Exam Present: RRR, no murmur - Routine Abdominal Exam Present: soft, non distended, non tender - Routine Extremities Exam Present: edema (2+). Absent: cyanosis, clubbing - Routine Skin Exam Present: ecchymosis - Routine Neurological Exam Present: alert, CN II-XII intact Oncology Results - Labs CBC & Chem 7: 05/12/17 04:24 05/12/17 04:24 Labs: Short CBC 05/12/17 Range/Units 04:24 WBC 6.9 (4.5-11.0) T/MM3 Hgb 7.9 L (12-16) GM/DL Hct 26.6 L (36-46) % Plt Count 77 L D (130-400) T/MM3 BMP 05/12/17 04:24 Sodium 145 H Potassium 3.3 L Chloride 107 Carbon Dioxide 28 BUN 28.0 H Creatinine 0.8 D Glucose 226 H Calcium 7.4 L Liver Function 05/12/17 Range/Units 04:24 Total Bilirubin 0.40 (0.20-1.30) MG/DL AST 75 H (14-36) U/L ALT 57 H (9-52) U/L Alkaline Phosphatase 59 (38-126) U/L Albumin 3.2 L (3.5-5.0) G/DL Laboratory Tests 05/12/17 05/12/17 04:24 04:24 WBC 6.9 Hgb 7.9 L Hct 26.6 L Plt Count 77 L D Creatinine 0.8 D Lactate Dehydrogenase 691 H - Impressions Bone marrow has granulomas and is hypercellular - Imaging and Cardiology CT scan - head Status: image reviewed by me Additional comments: Patient: Ava Antony MR#: [id number] : 1950 Age/Sex: 67 / F ADM Date: 05/07/17 Loc: MED 149-P DIS Date: = = = = = = = = = = = = = = = = = = = = = = = = = = = = = = = = = = = = = = = = = = = = = = = = = = = = = = = = = = = Date of Exam: 05/12/17 Ordering Provider: Estrada Brody MD Type of Exam(s): CT soft tissue neck wo con Reason for Exam(s): Adenopathy Indication: Adenopathy CT soft tissue neck wo con: Comparison: CT chest same date Technique: Nonenhanced axial imaging performed from the midbrain to the upper chest Findings: Patient shows multiple bilateral cervical nodes which are identified on both right and left sides from the upper cervical chains down to the anterior and posterior chains with nodes measuring between 5 to 6 mm up to some of the larger nodes measuring 1.5 cm. Nasopharyngeal and oral frontal soft tissues seemed unremarkable. Imaging into the upper chest also showed some Spear mediastinal adenopathy in the aortopulmonary window adenopathy. Lateral view shows some mild degenerative changes in the cervical spine with some disc space narrowing and hypertrophic change. No major bony structures lesions were noted. Impression: 1. Bilateral cervical adenopathy in anterior and posterior lymph node chains with nodes measuring from about 5 mm up to 1.5 cm. 2. Superior mediastinal adenopathy. 3. No significant acute sinus abnormality nor abnormal soft tissue prominence in the nasopharyngeal or oropharyngeal soft tissues. 4. CT PET fusion may be a consideration to better assess the level of metabolic activity involving these nodes. Reveiwed with Dr. Vo.. CT scan - chest Additional comments: Patient: Ava Antony MR#: [id number] : 1950 Age/Sex: 67 / F ADM Date: 05/07/17 Loc: MED 149-P DIS Date: = = = = = = = = = = = = = = = = = = = = = = = = = = = = = = = = = = = = = = = = = = = = = = = = = = = = = = = = = = = Date of Exam: 05/12/17 Ordering Provider: Estrada Brody MD Type of Exam(s): CT chest wo con Reason for Exam(s): adenopathy Indication: adenopathy CT chest wo con: Comparison: None Technique: Patient scanned from above the thoracic inlet to below the diaphragm utilizing dose reduction imaging technology with reformatted sagittal and coronal image planes. Findings: Patient shows a port in the right upper pectoral region. Patient showed scattered adenopathy the Spear mediastinum with largest node identified in the left aortopulmonary window measuring 2 cm. Some additional nodes are also identified. Heart is mildly prominent without evidence of significant failure. Pulmonary parenchyma shows mild chronic change some scattered blebs and bulla. Bilateral scattered areas of hazy density are appreciated. No significant consolidation or pleural effusion noted. Limited imaging below the diaphragm showed no acute findings. Reformatted imaging shows mild degenerative changes in the spine with bridging osteophytes but no marked fracture or malalignment. Impression: 1. Mild cardiac prominence although, no overt failure suggested. 2. Scattered lymph nodes in the Spear mediastinum and the aortopulmonary window which are somewhat indeterminant. 3. Bilateral chronic appearing lung changes with scattered blebs and bulla and some subtle patchy areas of more localized pulmonary parenchymal density. Reviewed with Dr. Vo. Marked improvement in axillary and mediastinal nodes with Steroids. Assessment and Plan Assessment and Plan: 1. 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 She has positive GILES with positive double-stranded DNA, centromere and histone antibody. She does carry a Diagnosis of lupus. Treatment of immune destruction secondary to lupus and ITP are the same. She completed immune globulin receiving 100 g 05/09 and 05/10. Platelets are up to 47 K 05/11 and 77 on 05/12/17. Completed 1 g Solu-Medrol on 05/11/16 and IVIG high dose on 05/10/16 Anticoagulation has been reversed in INR 05/11 is 1.27. Currently no active bleeding site 2. Lymphadenopathy that is documented worse than 03/11/2017. We would need lymph node biopsy. Over the course of the last 2 days with the steroids the lymph nodes have decreased in size. Hopefully bone marrow will give us diagnosis although preliminary report is one of granulomas and possibly Hodgkin' s disease. 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 Bone Marrow had granulomas. Will get node and also do fungal and AFB culture. 3. History of DVT and pulmonary embolism on chronic anticoagulation. Will restart Lomotil molecular weight heparin when platelets are above 50 K and patient is having no bleeding. Platelets are up to 47. I think it would be prudent to start low molecular weight heparin at a prophylactic dose. Will start after biopsy. 4. Anemia. Hemoglobin 7.8 today and is gradually declining. She does have a positive YOLA but does not appear to have hemolysis as haptoglobin is within normal limits. Reticulocyte count was elevated. This suggests that this is secondary to blood loss from thrombocytopenia. Will follow closely and may need transfusion. She has been typed and screened prior to her immunoglobulin in could adversely affect type and crossmatch. With hemoglobin continuing to decline I feel be prudent to proceed with transfusion Blood should be here this evening and will transfuse for plan of surgery. 5. Elevated LDH. Currently improving 05/08/16 [id number] 05/10/16 LDH 927 05/11/17 LDH 761 05/12/17: LDH 691 Decrasing 6. Positive GILES with positive histone, double-stranded DNA and centromere. This could be contributing to the thrombocytopenia and lymphadenopathy. Patient has been on steroids for psoriatic arthritis. We'll continue to follow Discussed with Dr. Haley. Plan: 1. Transfuse 1 unit packed red blood cells 2. Completed Solumedrol 3. Follow counts 4. Follow LDH it is currently decreasing 5. Lymph node biopsy when platelets are adequate. Consider surgical consultation tomorrow. 6. Lymph nodes appear to be decreasing from steroids. May need to consider CT scans prior to biopsy. CT better in chest Neck more stable. Left lower cervical Supraclavicular node may be best. Discussed with Dr. Dumont - Time Spent With Patient Total time spent is greater than 50% in coordination of care (as documented) at patient's floor/unit and/or counseling patient: 25 - 35 minutes
--- NOTE | 2017-05-12 17:12 | General Surgery Consult Note ---
Consult date: 05/12/17 Attending Physician: Isabella Haley MD Reason for consult: other (lymphadenopathy, abnormal CT scan) [facility] Patient Stated Medical History Meningitis Yes: bacterial meningitis 4 years ago Peripheral Neuropathy Yes: bilateral LE Hearing Loss Yes: Right ear hearing loss Sleep Apnea Yes: cpap at HS Diabetes Mellitus Type 2 Yes Gastroesophageal Reflux Yes Disease Hx Urinary Tract Infection Yes Anemia Yes Osteoarthritis Yes Sepsis Yes Shingles Yes Depression Yes non-hodgkin's lymphoma Surgical History: . Appendectomy. Cholecystectomy. Laminectomy L4- L5 -2011. Liposuction and Tummy tuck-1996. Left knee replacement-2006. Colonoscopy-2016. Lymph node biopsy-2015. Breast biopsy 2011 Family History: Father-heart disease, CVA. Mother-dementia - Social History Smoking status: Never smoker Housing: house Household members: other ( about a year ago. daughter lives close and checks on her often) Previous occupational history: RN, geriatrics Medications Home Medications Medication Instructions Recorded Confirmed Type Allopurinol [Zyloprim] 200 mg PO DAILY 05/07/17 05/07/17 History Atenolol [Tenormin] 12.5 mg PO DAILY 05/07/17 05/07/17 History Cyclobenzaprine HCl 15 mg PO HS 05/07/17 05/07/17 History Duloxetine HCl [Cymbalta] 60 mg PO BID 05/07/17 05/07/17 History Estropipate 0.375 mg PO DAILY 05/07/17 05/07/17 History Gabapentin [Neurontin] 1,200 mg PO HS 05/07/17 05/07/17 History Gabapentin [Neurontin] 600 mg PO BID 05/07/17 05/07/17 History Hydrocodone/APAP 7.5/325 1 tab PO Q4-6HR PRN 05/07/17 05/07/17 History Metformin HCl [Metformin HCl ER] 1,000 mg PO DAILY 05/07/17 05/07/17 History Omeprazole 40 mg PO DAILY 05/07/17 05/07/17 History Potassium Chloride [Klor-Con 10] 10 meq PO TID 05/07/17 05/07/17 History PredniSONE [Deltasone] 2.5 mg PO DAILY 05/07/17 05/07/17 History Rosuvastatin [Crestor] 20 mg PO HS 05/07/17 05/07/17 History Torsemide 50 mg PO DAILY 05/07/17 05/07/17 History Trazodone HCl 100 mg PO HS 05/07/17 05/07/17 History Warfarin Sodium 4 mg PO 3XW 05/07/17 05/07/17 History Warfarin Sodium 5 mg PO 4XW 05/07/17 05/07/17 History Allergies Allergy/AdvReac Type Severity Reaction Status Date / Time CARMEN Inhibitors Allergy Verified 05/07/17 17:08 atorvastatin [From Lipitor] Allergy Verified 05/07/17 17:08 clindamycin Allergy Verified 05/07/17 17:08 losartan Allergy Verified 05/07/17 17:08 niacin Allergy Verified 05/07/17 17:08 Review of Systems 10-point ROS: negative except for HPI and the following: - Eyes/Ears/Nose/Throat Eyes: Present: vision problems (wears glasses) Ear Nose Throat: Present: hearing problems - Respiratory Respiratory: Present: sleep apnea, use of CPAP - Gastrointestinal Gastrointestinal: Present: other (GERD) - Musculoskeletal Musculoskeletal: Present: other (generalized pain from psoriatic psoriasis) - Neurological Neurological: Present: numbness (peripharal neuropathy) - Psychiatric Psychiatric: Present: depression (well controlled with meds) - Endocrine Endocrine: Present: diabetes - Hematologic/Lymphatic Hematologic/Lymphatic: Present: easy bruising - Vital Signs Last Vital Signs Temp 97.8 F 05/12/17 15:36 Pulse 66 05/12/17 15:36 Resp 18 05/12/17 15:36 BP 147/81 H 05/12/17 15:36 Pulse Ox 96 05/12/17 15:36 - Laboratory Result Diagrams: 05/12/17 04:24 05/12/17 04:24 General Surgery Results - Results Labs: 05/12/17 04:24 05/12/17 04:24 Hospital Course Summary Disclaimer: The visit summary below is not to be considered part of the above Progress Note. Hospital Course: 05/07/17 Impression Dehydration Tachycardia-present on admission Thrombocytopenia-present on admission Lymphadenopathy with right mastoid tenderness Type II diabetes Peripheral neuropathy Psoriatic arthritis GERD Pulmonary emboli with chronic anticoagulation Fibromyalgia Chronic back pain Obstructive sleep apnea Plan Admit patient, observation under the care of Dr. Haley for dehydration with tachycardia and thrombocytopenia. Did review outpatient labs from this morning done at [facility] this morning. Therapist Asst was 1.2. Will obtain CT scan of soft tissue neck to further evaluate lymphadenopathy as well as right-sided mastoid tenderness. Place patient on cardiac telemetry to monitor given evidence tachycardia. Twelve -lead EKG is obtained during examination does reveal sinus tach, rate of 135. Will order PRN Lopressor 5 mg IV every 6 hrs PRN sustained tachycardia greater than 120. Obtain orthostatic vital signs BID Monitor accuchecks given DM Consultation with Dr Brody for further immunology evaluation and recommendation. Concern thrombocytopenia with lymphadenopathy Obtain Urine Therapist Asst and urine sodium given hyponatremia Consult to pharmacy for Coumadin dosing management SCD to bilateral lower ext Home medications will need to be reviewed once reconciled Patient does wish to be a full code and this order is written Recheck CBC and BMP tomorrow morning to follow blood counts, renal function and electrolytes. Will discuss further orders and plan of care with today, Dr. Haley. At time of discharge medical care will return to primary care provider's in [place], [place], Dr True Casiano 05/08/17 Worsening thrombocytopenia overnight, extensive adenopathy on CT imaging of chest/abdomen/pelvis. No response to initial platelet pack-likely autoimmune destruction. Additional platelet is being given due to bleeding bone marrow biopsy site. High-dose steroids initiated in conjunction with FFP per Dr. Brody. Bone marrow obtained-results pending. 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 Tachycardia improving with fluid administration-continue. Fevers controlled with frequent doses acetaminophen/[place]. Continue ceftriaxone for sepsis-will contact Dr. Casiano in [place] tomorrow regarding culture results. Warfarin on hold due to thrombocytopenia/bleeding. SCDs for DVT prophylaxis. 05/09/16- IVIG infusion started by Dr Brody. Continued severe thrombocytopenia. Patient having some bleeding in the gums, nose, and petechiae rash to extremities noted today. Resume Demadex/decrease IV fluids-still receiving significant volume with other IV products. 05/10/17: Currently euvolemic. Continued IVIG and Solu-Medrol per Dr. Brody. Platelets 20K. 05/11/17: PRBC transfusion (hgb decreased from 10.2 -->7.8). Platelets improved to 47 and lymph nodes were decreasing in size. 05/12/17: Thrush diagnosed and Nystatin was started. Platelets up to 77. On Lovenox for PPX. Mild hypokalemia (3.3) and KDur was given.
--- NOTE | 2017-05-12 21:01 | Consultation ---
DATE OF CONSULTATION 05/12/2017 FINDINGS Mrs. Antony is a 67-year-old female whom I was notified earlier today by her oncologist, Dr. Brody, in regards to perhaps proceeding with a left supraclavicular/left cervical lymph node biopsy. The patient apparently has a prior history for non-Hodgkin lymphoma. She informs me that it has been thought that she has been in remission for a number of years. The patient, however, has recently developed some recurrent adenopathy. She recently developed influenza A and was given Tamiflu as well as additional oral antibiotics. She, however, failed to improve and had developed progressive thrombocytopenia. The patient was subsequently admitted to our hospital for further care. She has been given intravenous corticosteroids which has improved her thrombocytopenia. She has recently undergone CT scans that have revealed a component of adenopathy. Apparently, following the course of corticosteroid, several of her enlarged lymph nodes have markedly improved. PAST MEDICAL HISTORY, PAST SURGICAL HISTORY, MEDICATIONS, ALLERGIES, SOCIAL HISTORY, FAMILY HISTORY, REVIEW OF SYSTEMS Performed by my nurse practitioner, Checo Ledesma APRN. PHYSICAL EXAM GENERAL: Mrs. Antony is a 57 year-old female who today did not appear to be in acute distress. She was quite pleasant and verbal. VITAL SIGNS: Temperature 97.8, pulse 66, respirations 18, blood pressure 147/81 , SAO2 96% on room air. HEENT: Normocephalic. Pupils are equally round and react to light and accommodation. NECK: Visualization of the neck revealed it to be symmetric in nature. Palpation within the left supraclavicular region did reveal a component of some fullness. A discrete palpable lymph node, however, was unable to be appreciated. One could also appreciate a subtle nodularity within the posterior triangle just above the supraclavicular region on the left. Palpation of the right neck also failed to reveal any distinct pathologically enlarged lymph nodes. CHEST: Clear to auscultation bilaterally. AXILLARY REGIONS: Attention was focused to the left axilla. The patient has a prior surgical incision that is present from prior biopsy. Incision is well healed. Palpation of the left axilla failed to reveal any palpable lymph nodes. Palpation within the right axilla also failed to reveal any pathologically enlarged lymph nodes. ABDOMEN: Soft, nontender. No evidence for hepatosplenomegaly. INGUINAL REGIONS: Attention was focused to the left and right inguinal regions. Palpation within the inguinal regions also failed to reveal any evidence for pathologically enlarged lymph nodes. EXTREMITIES: Without clubbing, cyanosis, or edema. NEURO: Cranial nerves II-XII grossly intact. Patient is without focal motor or sensory deficits. LABORATORY/RADIOGRAPHIC EVALUATION I did review the patient's chart and her platelet count on admission was 14, 000. Platelet count currently is 77,000. White count is 6.9. Hemoglobin is slightly low at 7.9. CMP was obtained and found to be abnormal. AST and ALT are elevated at 75 and 57, respectively. Glucose was elevated at 226. Potassium slightly low at 3.3. I reviewed CT scan of her neck. The patient was found to have bilateral cervical adenopathy with the largest lymph node measuring about 5 mm up to 1.5 cm. One could see some lymph nodes beneath the sternocleidomastoid muscle as well as adjacent to the internal jugular vein. One could also see some smaller lymph nodes within the posterior triangle on the left. I reviewed a CT scan of her chest as well from earlier today. The patient was found to have some scattered lymph nodes within the mediastinum and aortopulmonary window which were "somewhat indeterminate." ASSESSMENT 67-year-old female with multiple medical comorbidities who has a component of cervical adenopathy suspicious for recurrent lymphoma. PLAN Left cervical lymph node biopsy. It would be my recommendation that secondary to the fact that we were unable to palpate an obvious lymph node within the left cervical/supraclavicular region, we would have Radiology under ultrasound guidance place a fine wire into the largest lymph node that can be seen sonographically. Will then utilize this needle localization to proceed with an excisional lymph node biopsy. The above plan was discussed with the patient. Potential risks associated with the procedure which included but are not inclusive of bleeding and/or infection was discussed with the patient. The patient understood and agreed with the proposed plan. BJ
[2017-05-12] MEDS: CYCLOBENZAPRINE 10 MG TABLET PO SCH (21:13)
[2017-05-12] MEDS: SALINE FLUSH 10ml SYRINGE IV PRN (21:14)
[2017-05-12] MEDS: TRAZODONE 100 MG TABLET PO SCH (21:14)
[2017-05-12] MEDS ORDERED: INSULIN GLARGINE 100unit/ml INJECTION SQ ONE (22:04)
[2017-05-13] MEDS: OMEPRAZOLE 20 MG CAPSULE PO SCH (05:48)
[2017-05-13] MEDS: HYDROCODONE/APAP 7.5 MG/325 MG TABLET PO PRN ×3 (05:53→20:43)
[2017-05-13] MEDS: DULOXETINE 60 MG CAPSULE PO SCH ×3 (08:06→21:18)
[2017-05-13] MEDS: GABAPENTIN 600 MG TABLET PO SCH ×3 (08:06→20:43)
[2017-05-13] MEDS: ATENOLOL 25 MG TABLET PO SCH (08:06)
[2017-05-13] MEDS: ALLOPURINOL 100 MG TABLET PO SCH (08:06)
[2017-05-13] MEDS: TORSEMIDE 20 MG TABLET PO SCH (08:07)
[2017-05-13] MEDS: CLOTRIMAZOLE 10 MG TROCHE MM SCH ×4 (08:07→18:57)
[2017-05-13] MEDS: SENNA + DOCUSATE TABLET PO SCH ×2 (08:07→20:42)
[2017-05-13] MEDS: POLYETHYL GLYCOL 3350 17gm PACKET PO SCH (08:07)
[2017-05-13] MEDS ORDERED: LIDOCAINE 1% (10mg/ml) 5ml PF SDV ONE (08:24)
[2017-05-13] MEDS: ENOXAPARIN 40 MG/0.4 ML INJECTION SQ SCH (10:18)
[2017-05-13] MEDS: CEFTRIAXONE 1 G in NS 100 ML IV SCH (11:33)
[2017-05-13] MEDS ORDERED: NS 1,000 ML IV SCH (12:15)
--- NOTE | 2017-05-13 12:20 | Anesthesia Preoperative Report ---
Anesthesia Preoperative Record - Date and Time Date: 05/13/17 Preoperative Diagnosis: Dehydration and severe sepsis lymphadenopathy, nonhodgikins lymphoma Proposed Procedure: cervical needle localized lymph node biopsy NPO Since Date: 05/12/17 NPO Since Time: 23:00 Allergies/Adverse Reactions: Allergies Allergy/AdvReac Type Severity Reaction Status Date / Time CARMEN Inhibitors Allergy Verified 05/07/17 17:08 atorvastatin [From Lipitor] Allergy Verified 05/07/17 17:08 clindamycin Allergy Verified 05/07/17 17:08 losartan Allergy Verified 05/07/17 17:08 niacin Allergy Verified 05/07/17 17:08 - Vital Signs Vital Signs: Temperature 98.6 F 05/13/17 11:55 Pulse Rate 76 05/13/17 11:55 Respiratory Rate 22 05/13/17 11:55 Blood Pressure 165/75 H 05/13/17 11:55 Pulse Oximetry 92 05/13/17 11:55 Height and Weight: Height 1.55 m Weight 113.5 kg Body Mass Index 44.9 - Medications Inpatient Medications: Current Medications Hydrocodone Bitart/Acetaminophen ([place] 7.5/325) 1 - 2 tab PO Q4H PRN PRN Reason: Pain Last Admin: 05/13/17 05:53 Dose: 2 tab Allopurinol (Zyloprim) 200 mg PO DAILY [facility] Last Admin: 05/13/17 08:06 Dose: 200 mg Atenolol (Tenormin) 25 mg PO DAILY [facility] Last Admin: 05/13/17 08:06 Dose: 25 mg Clotrimazole (Mycelex Ramila) 10 mg MM 5XD [facility] Last Admin: 05/13/17 11:52 Dose: Not Given Cyclobenzaprine HCl (Flexeril) 15 mg PO HS [facility] Last Admin: 05/12/17 21:13 Dose: 15 mg Duloxetine HCl (Cymbalta) 60 mg PO BID [facility] Last Admin: 05/13/17 08:06 Dose: 60 mg Enoxaparin Sodium (Lovenox) 40 mg SQ DAILY [facility] Last Admin: 05/13/17 10:18 Dose: Not Given Gabapentin (Neurontin) 600 mg PO 0900,1500 [facility] Last Admin: 05/13/17 08:06 Dose: 600 mg Gabapentin (Neurontin) 1,200 mg PO HS [facility] Last Admin: 05/12/17 21:12 Dose: 1,200 mg Ceftriaxone Sodium 1 g/ Sodium (Chloride) 100 mls @ 200 mls/hr IV Q24H [facility] Last Infusion: 05/13/17 12:06 Dose: Infused Sodium Chloride (Normal Saline) 1,000 mls @ 50 mls/hr IV .Q20H [facility] Insulin Human Regular (Novolin R) 2 - 8 unit SQ SS PRN; Protocol PRN Reason: Hyperglycemia Last Admin: 05/12/17 21:11 Dose: 3 unit Omeprazole (Prilosec) 40 mg PO ACB [facility] Last Admin: 05/13/17 05:48 Dose: 40 mg Ondansetron HCl (Zofran) 4 mg IVP Q6H PRN PRN Reason: Nausea &/or vomiting Polyethylene Glycol (Miralax) 17 gm PO DAILY [facility] Last Admin: 05/13/17 08:07 Dose: Not Given Prednisone (Deltasone) 2.5 mg PO DAILY [facility] Last Admin: 05/08/17 09:54 Dose: 2.5 mg Senna/Docusate Sodium (Senna Plus Tablet) 2 tab PO BID [facility] Last Admin: 05/13/17 08:07 Dose: Not Given Sodium Chloride (Iv Flush) 10 - 50 ml IV PRN PRN PRN Reason: Flushing Last Admin: 05/12/17 21:14 Dose: 10 ml Sodium Chloride (Normal Saline) 500 ml IV PRN PRN Sodium Chloride (Normal Saline) 500 ml IV PRN PRN Torsemide (Demadex) 100 mg PO DAILY [facility] Last Admin: 05/13/17 08:07 Dose: 100 mg Trazodone HCl (Desyrel) 100 mg PO [facility] Last Admin: 05/12/17 21:14 Dose: 100 mg Home Medications: Home Medications Medication Instructions Recorded Confirmed Type Allopurinol [Zyloprim] 200 mg PO DAILY 05/07/17 05/07/17 History Atenolol [Tenormin] 12.5 mg PO DAILY 05/07/17 05/07/17 History Cyclobenzaprine HCl 15 mg PO HS 05/07/17 05/07/17 History Duloxetine HCl [Cymbalta] 60 mg PO BID 05/07/17 05/07/17 History Estropipate 0.375 mg PO DAILY 05/07/17 05/07/17 History Gabapentin [Neurontin] 1,200 mg PO HS 05/07/17 05/07/17 History Gabapentin [Neurontin] 600 mg PO BID 05/07/17 05/07/17 History Hydrocodone/APAP 7.5/325 1 tab PO Q4-6HR PRN 05/07/17 05/07/17 History Metformin HCl [Metformin HCl ER] 1,000 mg PO DAILY 05/07/17 05/07/17 History Omeprazole 40 mg PO DAILY 05/07/17 05/07/17 History Potassium Chloride [Klor-Con 10] 10 meq PO TID 05/07/17 05/07/17 History PredniSONE [Deltasone] 2.5 mg PO DAILY 05/07/17 05/07/17 History Rosuvastatin [Crestor] 20 mg PO HS 05/07/17 05/07/17 History Torsemide 50 mg PO DAILY 05/07/17 05/07/17 History Trazodone HCl 100 mg PO HS 05/07/17 05/07/17 History Warfarin Sodium 4 mg PO 3XW 05/07/17 05/07/17 History Warfarin Sodium 5 mg PO 4XW 05/07/17 05/07/17 History Is Patient on Beta Soledad?: Yes Beta Soledad Last Dose Date/Time: 0800 - Medical History Respiratory: Reports: Sleep Apnea (cpap ), Other (history of pulmonary htn ) Cardiovascular: Reports: Hypertension, High Cholesterol, Other (palpitations ) Gastrointestional: Reports: Gastroesophageal Reflux Disease, Morbid Obesity Neuro/Musculoskeletal: Reports: HX.MS.OSAR, Back Problems (back surgery 5 years ago), Depression Renal/Endocrine: Reports: Diabetes Mellitus Type 2, Weight Loss (10 Lbs in last couple of weeks) Other History: Reports: Other (non hodgkin's lymphoma) - Surgical History HEENT Surgeries: Reports: Ear Surgery (artificial stapes on right ear.) Respiratory Surgery/Treatments: Reports: Chest Surgery (lung biopsy), CPAP Use GI Surgery/Treatments: Reports: Other (gall bladder removed.) Musculoskeletal Surgery/Tx: Reports: Carpal Tunnel Release, Total Knee Replacement (left knee in 2006) Reproductive Surgery/Treatment: Reports: Section, Hysterectomy, Lumpectomy (L breast), Other (tummy tuck ) Anesthesia Reactions: None Hx Family Anesthesia Reaction: No - Social History Smoking Status: Never smoker Substance Use Type: does not use Alcohol Intake Frequency: does not drink - Pertinent Findings Laboratory: CBC and BMP 05/13/17 04:30 05/13/17 04:29 BMP 05/13/17 04:29 Sodium 146 H Potassium 3.1 L Chloride 107 Carbon Dioxide 32 H BUN 24.0 H Creatinine 0.8 Glucose 93 Calcium 7.1 L EKG: Sinus Rhythm - Physical Exam Respiratory Exam: Present: lungs clear, bilateral breath sounds equal Cardiovascular Exam: Present: regular rate and rhythm, no murmur - Airway Assessment Mallampati Score: II TMD: 3 Fingerbreadths Neck Extension: fair Teeth: upper dentures, partial lower dentures Overall Assessment: may be difficult mask vent, may be difficult intubation - ASA ASA Score: 3 - Plan Anesthesia: General TIVA, General Inhalation Gases - Discussion Discussion: Discussed risks/options/alternatives of anesthesia and questions answered. Patient consents. Nursing pain assessment noted. Attestation Statement: Prior to the delivery of any anesthetic medication, I examined the patient, developed the plan, obtained the patient's consent and discussed the risk and benefits of the procedure with the patient/guardian. - Additional Information Seen by Anesthesia: Yes
[2017-05-13] MEDS ORDERED: KETAMINE 500 MG/10 ML INJECTION ONE (12:37)
[2017-05-13] MEDS ORDERED: ROCURONIUM 50 MG/5 ML INJECTION IVP ONE (12:37)
[2017-05-13] MEDS ORDERED: FentaNYL 100 MCG/2 ML INJECTION ONE (12:39)
[2017-05-13] MEDS ORDERED: BUPIVACAINE 0.25%/EPI 1:200,000 30ml SDV ID ONE (13:03)
[2017-05-13] MEDS ORDERED: PROPOFOL 0 ML ONE (13:32)
[2017-05-13] MEDS ORDERED: SUGAMMADEX 200mg/2ml INJECTION IVP ONE (13:39)
--- NOTE | 2017-05-13 13:50 | General Surgery Procedure Note ---
Date of Procedure: 05/13/17 Surgeon: Julia Aids Counselor: Checo Ledesma APRN Postoperative Diagnosis: lymphadenopathy, history of non-hodgkins lymphoma Procedure: Needle localized right cervical lymph node biopsy Estimated Blood Loss: See Anesthesia Record.
--- NOTE | 2017-05-13 13:55 | Anesthesia Postoperative Note ---
- Date and Time Date: 05/13/17 Time: 13:55 - Status Patient Participated in Evaluation: Patient Participated in Person Vital Signs: Temperature 98.6 F 05/13/17 11:55 Pulse Rate 76 05/13/17 11:55 Respiratory Rate 22 05/13/17 11:55 Blood Pressure 165/75 H 05/13/17 11:55 Pulse Oximetry 92 05/13/17 11:55 Respiratory Function: Airway Patent Cardiovascular Function: Regular Pulse EKG: Sinus Rhythm Mental Status: Alert and Oriented Pain Intensity: 0 Hydration: IV Infusing Complications During Recover: None Apparent - Follow-Up Instructions Instructions: Per Surgeon
[2017-05-13] MEDS: FentaNYL 100 MCG/2 ML INJECTION IVP PRN ×4 (14:00→14:30)
--- NOTE | 2017-05-13 14:23 | Ultrasound Report ---
Indication:lymphadenopathy, non-Hodgkin's lymphoma Procedure:US guided needle biopsy LYMPH NODE WIRE LOCALIZATION WITH ULTRASOUND GUIDANCE: After discussing the details of the procedure, including the risks, the patient wished to proceed. Informed consent was obtained. A preprocedural timeout was performed to confirm the correct patient and procedure. Using aseptic technique, local lidocaine anesthetic, and ultrasound guidance throughout, a localization wire was advanced into a right cervical chain lymph node measuring approximately 1.3 cm in maximum dimensions. The needle was removed. The patient tolerated this procedure well. The localization wire was secured down to the skin and the patient was taken back to her room on the medical floor. Impression: Successful wire localization of a right cervical chain lymph node located in the mid right neck. Gus Kee RPA/MARY performed this under my personal supervision. .
[2017-05-13] MEDS ORDERED: HYDROCODONE/APAP 5mg/325mg TABLET PO PRN (15:30)
--- NOTE | 2017-05-13 19:07 | Progress Note ---
- Date 05/13/17 Subjective: Patient seen sitting up in bed. She states overall she feels well. She had lymph node biopsy earlier today by Dr. Dumont. Other than the neck feeling stiff, she says she feels fine. She is ready to go home. No chest pain, shortness of breath, nausea or vomiting. Objective Vital signs: Temperature 97.1 F 05/13/17 15:42 Pulse Rate 77 05/13/17 18:12 Respiratory Rate 18 05/13/17 18:12 Blood Pressure 139/76 05/13/17 18:12 Pulse Oximetry 92 05/13/17 18:12 Height/Weight/BMI: Height 1.55 m Weight 113.5 kg Body Mass Index 44.9 - Constitutional Present: no acute distress, well nourished, well developed, obese - Routine HEENT Exam Head: Present: normocephalic - Routine Respiratory Exam Present: CTA bilaterally. Absent: wheezes - Routine Cardiovascular Exam Present: RRR. Absent: murmur - Routine Abdominal Exam Present: soft, normoactive bowel sounds, non distended. Absent: tenderness - Routine Extremities Exam Present: no edema, normal capillary refill - Routine Skin Exam Present: dry, warm Comments: Surgical incision to right anterior neck appears normal. No drainage. - Routine Neurological Exam Present: alert, oriented X3 - Routine Lymphatic Exam Lymphatic: Absent: adenopathy - Routine Psychiatric Exam Present: normal affect, cooperative Results - Labs CBC & Chem 7: 05/13/17 04:30 05/13/17 04:29 Assessment and Plan (1) Dehydration Current visit: Yes Status: Acute (2) Thrombocytopenia Current visit: Yes Status: Acute Assessment and Plan: Impression Dehydration-POA with FeNa 0.29% and associated tachycardia -- resolved Thrombocytopenia-POA Lymphadenopathy, extensive Right mastoid tenderness, possible phlegmon inferior right auditory canal Thrush Hypokalemia Progressive anemia Pulmonary emboli, chronically anticoagulated - oral anticoagulant on hold Type II diabetes Peripheral neuropathy Psoriatic arthritis GERD Chronic back pain, fibromyalgia Hyperlipidemia, hypertension Obstructive sleep apnea, on CPAP Plan Thrombocytopenia-POA - improving -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 Brody -Plts up to 94,000 today Lymphadenopathy, extensive -Lymph node biopsy performed today. Results pending. Thrush -Nystatin started 05/12/17 Hypokalemia -Resumed home potassium dose of 10 mEq 3 times a day and an extra 40 mEq given 1 today. Progressive anemia -+YOLA, no hemolysis (haptoglobin nml) -Retic elevated -s/p PRBC transfusion Right mastoid tenderness, possible phlegmon inferior right auditory canal -Tomorrow is Day #[address] Haley - ok to DC after tomorrow's dose. -Hope to DC home tomorrow DVT Prophylaxis: SCD's GI Prophylaxis: other (omeprazole) Resuscitation Status: Full Code - Physician Narrative Physician: Isabella Haley MD Narrative: Date: 05/13/17 Time: 2019 I have independently evaluated and examined this patient. I reviewed the chart, the patient's history, and the POWER REACTOR SUPERVISOR/PA's documented findings as above. We discussed and formulated the assessment and plan as above with additions as below: Mrs. Antony underwent lymph node biopsy after needle placement in radiology to localize. Her presenting symptoms have by and large resolved with no persistent fevers, arthralgias, myalgias, right mastoid pain, and significant improvement in adenopathy. She hopes to discharge after Dr. Brody reassess this tomorrow. NAD, alert Residual blue discoloration around neck and shoulders from skin prep, surgical closure present right neck Left supraclavicular node palpated yesterday less evident today with only vague suggestion of the node just under the clavicle Respirations nonlabored, decreased airflow but breath sounds clear Fading bruises and petechiae although one large bruise persists overlying the right scapula. Unit of blood received yesterday proved to be incompatible with the patient's blood and was subsequently not transfused; hemoglobin is improving spontaneously with resolution of homolysis, LDH down. Recheck hemoglobin in a.m. With near normalization of platelet count anticipate resuming Xarelto tomorrow- will discuss with Dr. Brody prior to doing so however in the event additional biopsies anticipated. Today's date 6 ceftriaxone, will dose again tomorrow to complete 1 week therapy. Results of blood cultures done at outside office were not received by fax yesterday unfortunately. Doing very well; bone marrow biopsy without evidence of non-Hodgkin's lymphoma; granuloma present-special stains pending. I anticipate patient can discharge tomorrow unless Dr. Brody has additional plans. Hospital Course Summary Disclaimer: The visit summary below is not to be considered part of the above Progress Note. Hospital Course: 05/07/17 Impression Dehydration Tachycardia-present on admission Thrombocytopenia-present on admission Lymphadenopathy with right mastoid tenderness Type II diabetes Peripheral neuropathy Psoriatic arthritis GERD Pulmonary emboli with chronic anticoagulation Fibromyalgia Chronic back pain Obstructive sleep apnea Plan Admit patient, observation under the care of Dr. Haley for dehydration with tachycardia and thrombocytopenia. Did review outpatient labs from this morning done at [facility] this morning. [place] was 1.2. Will obtain CT scan of soft tissue neck to further evaluate lymphadenopathy as well as right-sided mastoid tenderness. Place patient on cardiac telemetry to monitor given evidence tachycardia. Twelve -lead EKG is obtained during examination does reveal sinus tach, rate of 135. Will order PRN Lopressor 5 mg IV every 6 hrs PRN sustained tachycardia greater than 120. Obtain orthostatic vital signs BID Monitor accuchecks given DM Consultation with Dr Brody for further immunology evaluation and recommendation. Concern thrombocytopenia with lymphadenopathy Obtain Urine [place] and urine sodium given hyponatremia Consult to pharmacy for Coumadin dosing management SCD to bilateral lower ext Home medications will need to be reviewed once reconciled Patient does wish to be a full code and this order is written Recheck CBC and BMP tomorrow morning to follow blood counts, renal function and electrolytes. Will discuss further orders and plan of care with today, Dr. Haley. At time of discharge medical care will return to primary care provider's in [place], [place], Dr True Casiano 05/08/17 Worsening thrombocytopenia overnight, extensive adenopathy on CT imaging of chest/abdomen/pelvis. No response to initial platelet pack-likely autoimmune destruction. Additional platelet is being given due to bleeding bone marrow biopsy site. High-dose steroids initiated in conjunction with FFP per Dr. Brody. Bone marrow obtained-results pending. 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 Tachycardia improving with fluid administration-continue. Fevers controlled with frequent doses acetaminophen/[place]. Continue ceftriaxone for sepsis-will contact Dr. Casiano in [place] tomorrow regarding culture results. Warfarin on hold due to thrombocytopenia/bleeding. SCDs for DVT prophylaxis. 05/09/16- IVIG infusion started by Dr Brody. Continued severe thrombocytopenia. Patient having some bleeding in the gums, nose, and petechiae rash to extremities noted today. Resume Demadex/decrease IV fluids-still receiving significant volume with other IV products. 05/10/17: Currently euvolemic. Continued IVIG and Solu-Medrol per Dr. Brody. Platelets 20K. 05/11/17: PRBC transfusion (hgb decreased from 10.2 -->7.8). Platelets improved to 47 and lymph nodes were decreasing in size. 05/12/17: Thrush diagnosed and Nystatin was started. Platelets up to 77. On Lovenox for PPX. Mild hypokalemia (3.3) and KDur was given. 05/13/16: No biopsy performed today. Resumed home dose of potassium 10 mEq 3 times a day. 40 mEq potassium 1 given today as well. (Potassium 3.1 today). Platelets up to 94.
[2017-05-13] MEDS: CYCLOBENZAPRINE 10 MG TABLET PO SCH (20:42)
[2017-05-13] MEDS: TRAZODONE 100 MG TABLET PO SCH (20:43)
[2017-05-13] MEDS: SALINE FLUSH 10ml SYRINGE IV PRN (21:19)
[2017-05-13] MEDS: INSULIN REGULAR, HUMAN 100 UNIT/ML INJECTION SQ PRN (21:25)
--- NOTE | 2017-05-13 21:29 | Progress Note ---
Oncology Subjective She is resting in bed. She is back from surgical lymph node biopsy. She had no bleeding from the surgical site. Platelets today 94,000. The patient has lost 10 pounds in the last couple of weeks she has been running low-grade fever. Exam Vital signs: Temperature 97.1 F 05/13/17 15:42 Pulse Rate 79 05/13/17 19:12 Respiratory Rate 18 05/13/17 19:12 Blood Pressure 130/86 05/13/17 19:12 Pulse Oximetry 93 05/13/17 19:12 - Constitutional no acute distress, well developed, average body habitus - Routine HEENT Exam ENT: Present: mucous membranes moist - Routine Neck Exam Comments: Bilateral cervical lymphadenopathy. Surgical incision on the right side from recent lymph node biopsy with no signs of bleeding. - Routine Respiratory Exam Absent: rales, respiratory distress, rhonchi, stridor - Routine Cardiovascular Exam Present: RRR - Routine Abdominal Exam Present: soft, normoactive bowel sounds Oncology Results - Labs CBC & Chem 7: 05/13/17 04:30 05/13/17 04:29 Labs: Short CBC 05/13/17 Range/Units 04:30 WBC 4.2 L (4.5-11.0) T/MM3 Hgb 8.2 L (12-16) GM/DL Hct 27.4 L (36-46) % Plt Count 94 L (130-400) T/MM3 BMP 05/13/17 04:29 Sodium 146 H Potassium 3.1 L Chloride 107 Carbon Dioxide 32 H BUN 24.0 H Creatinine 0.8 Glucose 93 Calcium 7.1 L Assessment and Plan Assessment and Plan: Assessment and plan 1. ITP status post IVIG with very good tolerance and response with a platelet count up to 94,000. 2. 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 Continue current care with close monitoring of blood counts. - Time Spent With Patient Total time spent is greater than 50% in coordination of care (as documented) at patient's floor/unit and/or counseling patient: less than 15 minutes
[2017-05-14] MEDS: CLOTRIMAZOLE 10 MG TROCHE MM SCH ×6 (03:29→21:37)
[2017-05-14] MEDS: HYDROCODONE/APAP 7.5 MG/325 MG TABLET PO PRN ×4 (03:34→21:37)
[2017-05-14] MEDS: SALINE FLUSH 10ml SYRINGE IV PRN ×2 (03:35→21:37)
[2017-05-14] MEDS: OMEPRAZOLE 20 MG CAPSULE PO SCH (06:21)
[2017-05-14] MEDS: TORSEMIDE 20 MG TABLET PO SCH (09:00)
[2017-05-14] MEDS: ATENOLOL 25 MG TABLET PO SCH (09:00)
[2017-05-14] MEDS: DULOXETINE 60 MG CAPSULE PO SCH (09:00)
[2017-05-14] MEDS: SENNA + DOCUSATE TABLET PO SCH ×2 (09:00→21:36)
[2017-05-14] MEDS: GABAPENTIN 600 MG TABLET PO SCH ×3 (09:00→21:36)
[2017-05-14] MEDS: ALLOPURINOL 100 MG TABLET PO SCH (09:00)
[2017-05-14] MEDS: POLYETHYL GLYCOL 3350 17gm PACKET PO SCH (09:01)
[2017-05-14] MEDS: ENOXAPARIN 40 MG/0.4 ML INJECTION SQ SCH (09:01)
[2017-05-14] MEDS: PredniSONE 2.5 MG TABLET PO SCH (09:09)
[2017-05-14] MEDS: CEFTRIAXONE 1 G in NS 100 ML IV SCH (12:10)
--- NOTE | 2017-05-14 12:54 | Progress Note ---
- Date 05/14/17 Subjective: Patient is seen sitting in her room. She feels she is doing well. Has some swelling and stiffness in the neck from her biopsy yesterday, but pain is controlled. She is hoping to go home today. No chest pain or shortness of breath , no nausea or vomiting. Mouth is feeling better in re: to thrush. Objective Vital signs: Temperature 99.1 F 05/14/17 11:15 Pulse Rate 92 05/14/17 08:21 Respiratory Rate 20 05/14/17 08:05 Blood Pressure 160/92 H 05/14/17 08:21 Pulse Oximetry 93 05/14/17 08:05 Height/Weight/BMI: Height 1.55 m Weight 113.5 kg Body Mass Index 44.9 - Constitutional Present: well nourished, well developed, obese - Routine HEENT Exam Eye: Present: EOMI ENT: Present: oropharynx clear Comments: no thrush noted no pain or swelling to R ear or mastoid area - Routine Respiratory Exam Present: CTA bilaterally. Absent: wheezes - Routine Cardiovascular Exam Present: RRR. Absent: murmur - Routine Abdominal Exam Present: soft, normoactive bowel sounds, non distended. Absent: tenderness - Routine Extremities Exam Present: edema (1+ bilateral), normal capillary refill - Routine Skin Exam Present: dry, warm Comments: Mild swelling around biopsy site to right anterior neck, no redness or drainage. - Routine Neurological Exam Present: alert, oriented X3 - Routine Lymphatic Exam Lymphatic: Absent: adenopathy - Routine Psychiatric Exam Present: normal affect, cooperative Results - Labs CBC & Chem 7: 05/14/17 03:55 05/14/17 03:55 Assessment and Plan (1) Dehydration Current visit: Yes Status: Acute (2) Thrombocytopenia Current visit: Yes Status: Acute Assessment and Plan: Impression Dehydration-POA with FeNa 0.29% and associated tachycardia -- resolved Thrombocytopenia-POA Lymphadenopathy, extensive Right mastoid tenderness, possible phlegmon inferior right auditory canal Thrush Hypokalemia Progressive anemia Pulmonary emboli, chronically anticoagulated - oral anticoagulant on hold Type II diabetes Peripheral neuropathy Psoriatic arthritis GERD Chronic back pain, fibromyalgia Hyperlipidemia, hypertension Obstructive sleep apnea, on CPAP Plan Thrombocytopenia-POA - improving -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 Brody -Plts 88,000 today. Lymphadenopathy, extensive -Lymph node biopsy performed yesterday. Results pending. Hypokalemia -Resumed home potassium dose of 10 mEq 3 times a day yesterday. Potassium 3.7 today. Progressive anemia -+YOLA, no hemolysis (haptoglobin nml) -Retic elevated -s/p PRBC transfusion -Hemoglobin improving. Up to 8.8 from 8.2 yesterday. Right mastoid tenderness, possible phlegmon inferior right auditory canal -Today is Day #7 of Rocepndn. No further antibiotics needed at this time. Discussed case with Dr. Brody. He will see patient today. If he is comfortable with discharge, will discharge home today. 05/14/2017-I reviewed this chart, the patient history, and the [employer]'s/PA's documented findings as above. We discussed and formulated the assessment and plan as above with the additions below.-Dr. Doyle The patient stated that overall, she is feeling better every day. She states her strength is getting better and appetite is better. She states her shortness of breath has resolved. She states that her neck pain is slowly improving but then worsened a little bit yesterday after lying on a hard pillow during her neck biopsy yesterday. MAXIMUM TEMPERATURE today is 100. Other vital signs are essentially stable. She states that she was doing well overall until a week prior to [place] when she developed influenza A. She states she's had fevers off and on since that time and it was then that she developed the lymphadenopathy. On exam she is alert and oriented and in no acute distress. HEENT reveals oropharynx to be moist. Neck is supple. She does have tenderness to palpation and it's difficult to palpate her neck well because of tenderness especially on the right where she underwent biopsy yesterday. Chest is clear to auscultation. Cardiovascular reveals a regular rate and rhythm. Abdomen is soft and nontender. Extremity is reveal trace to +1 lower extremity edema. Skin is warm and dry and without rashes. She does have some bruising. Labs today reveal calcium to be decreasing in is 6.8. AST and LT are slightly increased at 94 and 66 respectively. Albumin is 3.1. Impression and plan Discussed today with Dr. Brody. Will likely have pathology back tomorrow. Hopefully can dismiss the patient tomorrow. She received her last dose of Rocephin today. Regarding low calcium, will check ionized calcium, vitamin D levels, and PTH Discussed with Dr. Brody, will start Lovenox 80 mg once daily instead of Coumadin at this time, due to recent thrombocytopenia Patient does have history of PE and DVT but states that was about 20 years ago. I did call and talk with the patient's primary care physician, Dr. Mynor Casiano in [facility]. He stated that her blood cultures drawn prior to admission are negative after 5 days. I did update him on her status. Regarding the patient's numerous abnormal rheumatology labs, she may need follow -up with her head of quality in [place] Dr. Leal. - Physician Narrative Narrative: Date: 05/14/17 Time: 1248 Hospital Course Summary Disclaimer: The visit summary below is not to be considered part of the above Progress Note. Hospital Course: 05/07/17 Impression Dehydration Tachycardia-present on admission Thrombocytopenia-present on admission Lymphadenopathy with right mastoid tenderness Type II diabetes Peripheral neuropathy Psoriatic arthritis GERD Pulmonary emboli with chronic anticoagulation Fibromyalgia Chronic back pain Obstructive sleep apnea Plan Admit patient, observation under the care of Dr. Haley for dehydration with tachycardia and thrombocytopenia. Did review outpatient labs from this morning done at [facility] this morning. Resource Agent was 1.2. Will obtain CT scan of soft tissue neck to further evaluate lymphadenopathy as well as right-sided mastoid tenderness. Place patient on cardiac telemetry to monitor given evidence tachycardia. Twelve -lead EKG is obtained during examination does reveal sinus tach, rate of 135. Will order PRN Lopressor 5 mg IV every 6 hrs PRN sustained tachycardia greater than 120. Obtain orthostatic vital signs BID Monitor accuchecks given DM Consultation with Dr Brody for further immunology evaluation and recommendation. Concern thrombocytopenia with lymphadenopathy Obtain Urine Resource Agent and urine sodium given hyponatremia Consult to pharmacy for Coumadin dosing management SCD to bilateral lower ext Home medications will need to be reviewed once reconciled Patient does wish to be a full code and this order is written Recheck CBC and BMP tomorrow morning to follow blood counts, renal function and electrolytes. Will discuss further orders and plan of care with today, Dr. Haley. At time of discharge medical care will return to primary care provider's in [place], [place], Dr True Casiano 05/08/17 Worsening thrombocytopenia overnight, extensive adenopathy on CT imaging of chest/abdomen/pelvis. No response to initial platelet pack-likely autoimmune destruction. Additional platelet is being given due to bleeding bone marrow biopsy site. High-dose steroids initiated in conjunction with FFP per Dr. Brody. Bone marrow obtained-results pending. 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 Tachycardia improving with fluid administration-continue. Fevers controlled with frequent doses acetaminophen/[place]. Continue ceftriaxone for sepsis-will contact Dr. Casiano in [place] tomorrow regarding culture results. Warfarin on hold due to thrombocytopenia/bleeding. SCDs for DVT prophylaxis. 05/09/16- IVIG infusion started by Dr Brody. Continued severe thrombocytopenia. Patient having some bleeding in the gums, nose, and petechiae rash to extremities noted today. Resume Demadex/decrease IV fluids-still receiving significant volume with other IV products. 05/10/17: Currently euvolemic. Continued IVIG and Solu-Medrol per Dr. Brody. Platelets 20K. 05/11/17: PRBC transfusion (hgb decreased from 10.2 -->7.8). Platelets improved to 47 and lymph nodes were decreasing in size. 05/12/17: Thrush diagnosed and Nystatin was started. Platelets up to 77. On Lovenox for PPX. Mild hypokalemia (3.3) and KDur was given. 05/13/17: Node biopsy performed today. Resumed home dose of potassium 10 mEq 3 times a day. 40 mEq potassium 1 given today as well. (Potassium 3.1 today). Platelets up to 94. 05/14/17: Patient doing well. Labs stable today-Hemoglobin 8.8, potassium 3.7, platelets 88,000. If Dr. Brody agrees, will discharge today with close laboratory follow-up outpatient.
--- NOTE | 2017-05-14 14:10 | Operative Note ---
DATE OF SERVICE 05/13/2017 SURGEON Serafin Dumont MD [employer] Checo Ledesma APRN PREOPERATIVE DIAGNOSES Personal history for lymphoma. Development of cervical/mediastinal adenopathy suspicious for recurrent disease. POSTOPERATIVE DIAGNOSES Personal history for lymphoma. Development of cervical/mediastinal adenopathy suspicious for recurrent disease. PROCEDURE Needle-localized right deep excisional cervical lymph node biopsy. ANESTHESIA General/local. BRIEF HISTORY/INDICATIONS Mrs. Antony is a 67-year-old female whom I was asked to see by her oncologist yesterday as a new patient as a result of development of recurrent adenopathy. The patient has a prior history for lymphoma in the past. The patient's oncologist was concerned about potential recurrence. He had requested that a cervical lymph node biopsy be performed. I did have Radiology review her CT scan and requested that Radiology place a needle localization wire into the largest lymph node within the cervical region to facilitate identification and excision of the most suspicious lymph node present. The patient does have a component of obesity and I was unable to appreciate upon physical examination a discrete, hard, palpable mass. Radiology did place a needle localization wire into an enlarged lymph node just behind the right sternocleidomastoid muscle adjacent to the internal jugular vein preoperatively. I did discuss with Radiology the placement of this needle localization wire. NARRATIVE OF PROCEDURE After informed consent was obtained the patient was brought to the operative suite and placed on the table in supine fashion. The neck was then prepped and draped in sterile fashion. Formal time-out was then completed. 0.25% Marcaine with epinephrine was injected adjacent to the exit site of the guidewire. A 4- 5 cm longitudinal incision was then made along the anterior border of the sternocleidomastoid muscle adjacent to the exit site of the needle localization wire. Dissection was carried down into the deep subcuticular tissues to the underlying sternocleidomastoid muscle. The wire itself traversed through the midportion of the sternocleidomastoid muscle. Muscle fibers were spread apart and two [facility] retractors were placed within the muscle fibers and retracted outwardly to provide better exposure. The needle localization wire was then continued to be dissected out as it coursed beneath the sternocleidomastoid muscle and into an enlarged lymph node near the internal jugular vein. The lymph node itself was identified and was begun to be dissected out from the surrounding tissues. Lymph node itself appeared to be fairly fatty replaced and "pour" fairly easily. The lymph node, however, was able to be excised in its entirety and passed off the table in several portions. The needle localization wire was removed in its entirety. This lymph node that was excised was on the order about 1.5 cm in greatest diameter. There was an adjacent lymph node that also appeared slightly enlarged that was about 1 cm in dimension. This lymph node was also excised from the surrounding tissues and submitted for pathologic evaluation. Meticulous hemostasis was obtained within the wound. Attention was directed towards closure. Strap muscles were reapproximated in a running fashion with 3-0 Vicryl. The fascia anterior to the strap muscles was closed a running fashion with 3-0 Vicryl. Deep subcutaneous tissues were then reapproximated in a running fashion with 3-0 Vicryl. Skin itself was then closed a running subcuticular fashion with 4-0 Monocryl. Dermabond was placed overlying the incision. The patient was awakened from her anesthetic and sent back to the recovery room once deemed in stable condition. Additionally, it should be noted that Checo Ledesma APRN, was present throughout the entire case and played a pivotal role in providing assistance and exposure during the course of the procedure. BJ
[2017-05-14] MEDS: INSULIN REGULAR, HUMAN 100 UNIT/ML INJECTION SQ PRN ×2 (14:45→20:36)
[2017-05-14] MEDS ORDERED: ENOXAPARIN 40 MG/0.4 ML INJECTION SQ SCH (16:30)
--- NOTE | 2017-05-14 17:38 | Progress Note ---
Oncology Subjective Patient looking a going home tomorrow. She had lymph node biopsy yesterday. She is having no other symptoms. Pain at the site of her surgery which is mild. Exam Vital signs: Temperature 99.1 F 05/14/17 14:04 Pulse Rate 76 05/14/17 15:10 Respiratory Rate 24 05/14/17 15:10 Blood Pressure 131/67 05/14/17 15:10 Pulse Oximetry 93 05/14/17 15:10 - Constitutional no acute distress, obese - Routine HEENT Exam Head: Present: normocephalic Eye: Present: EOMI, PERRL Throat: normal inspection - Routine Neck Exam Present: supple. Absent: lymphadenopathy - Routine Respiratory Exam Present: CTA bilaterally. Absent: accessory muscle use - Routine Cardiovascular Exam Present: RRR, no murmur - Routine Abdominal Exam Present: soft, non distended, non tender - Routine Extremities Exam Present: edema (2+). Absent: cyanosis, clubbing - Routine Skin Exam Present: dry, warm - Routine Neurological Exam Present: alert, oriented X3, CN II-XII intact - Routine Psychiatric Exam Present: normal affect Oncology Results - Labs CBC & Chem 7: 05/14/17 03:55 05/14/17 03:55 Labs: Short CBC 05/14/17 Range/Units 03:55 WBC 4.1 L (4.5-11.0) T/MM3 Hgb 8.8 L (12-16) GM/DL Hct 29.5 L (36-46) % Plt Count 88 L (130-400) T/MM3 BMP 05/14/17 03:55 Sodium 143 Potassium 3.7 D Chloride 105 Carbon Dioxide 28 BUN 20.0 H Creatinine 0.8 Glucose 121 H Calcium 6.8 L Liver Function 05/14/17 Range/Units 03:55 Total Bilirubin 0.50 (0.20-1.30) MG/DL AST 94 H (14-36) U/L ALT 66 H (9-52) U/L Alkaline Phosphatase 56 (38-126) U/L Albumin 3.1 L (3.5-5.0) G/DL Laboratory Tests 05/14/17 05/14/17 05/14/17 03:55 03:55 16:03 WBC 4.1 L Hgb 8.8 L Plt Count 88 L Creatinine 0.8 Ionized Calcium Noemi 0.94 L PTH Intact 490.8 H Assessment and Plan Assessment and Plan: Assessment and plan 1. ITP status post IVIG with very good tolerance and response with a platelet count up to 88,000. 2. 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 Bone marrow biopsy showed granulomas. Right cervical lymph node biopsies pending. 3. Hypocalcemia with decreased ionized calcium is 0.9 for an elevated PTH of 490. HYPOCALCEMIA WITH HIGH PTH Other disorders that cause hypocalcemia are associated with a high parathyroid hormone (PTH). In these cases, PTH is increased in response to low serum calcium concentrations, in an attempt to mobilize calcium from kidney and bone and to increase 1,25-dihydroxyvitamin D production. Chronic hypocalcemia occurs when these actions are inadequate to restore the serum calcium to normal. Vitamin D deficiency or resistance Decreased production or action of vitamin D may cause hypocalcemia with a high PTH. Causes of vitamin D deficiency include poor intake or malabsorption coupled with reduced exposure to ultraviolet light, decreased 25-hydroxylation of vitamin D to form calcidiol (25 -hydroxyvitamin D) in the liver, increased metabolism to inactive metabolites, decreased 1-hydroxylation of calcidiol to calcitriol (1,25-dihydroxyvitamin D) in the kidney, and decreased calcitriol action. (See "Causes of vitamin D deficiency and resistance".) Chronic kidney disease The most common cause of an acquired decrease in renal production of 1,25-dihydroxyvitamin D is chronic kidney disease (CKD). In contrast to other forms of hypocalcemia associated with vitamin D deficiency, hypocalcemia in CKD is also due to the occurrence of hyperphosphatemia (due to reduction in the filtered phosphate load and a reduction in the fractional excretion of phosphorus) [11]. Hypocalcemia typically does not occur until end- stage CKD (G5, estimated glomerular filtration rate [eGFR] <15 mL/min or treatment by dialysis). (See 'Hyperphosphatemia' below and "Management of secondary hyperparathyroidism in dialysis patients".) PTH resistance (impaired PTH action) Pseudohypoparathyroidism, which presents in childhood, refers to a group of heterogeneous disorders defined by target organ (kidney and bone) unresponsiveness to PTH due to an alteration in the postreceptor PTH signaling pathway. It is characterized by hypocalcemia, hyperphosphatemia, and, in contrast to hypoparathyroidism, elevated rather than reduced PTH concentrations. This disorder is discussed elsewhere. (See " Etiology of hypocalcemia in infants and children", section on 'End-organ resistance to PTH (pseudohypoparathyroidism)'.) PTH resistance has also been associated with a recessive missense mutation in the mature PTH(1-84) sequence, resulting in resistance to PTH because of reduced PTH-receptor binding [12]. It is characterized by hypocalcemia and hyperphosphatemia and, depending on the assay used to measure PTH, either elevated or low-normal concentrations of circulating PTH. Extravascular deposition Ionized calcium can be lost from the extracellular fluid either by deposition in tissues or by binding within the vascular space. Hyperphosphatemia In patients with impaired renal excretion or in acute renal failure, increased phosphate intake (overzealous oral administration or phosphate enemas) or excess tissue breakdown (rhabdomyolysis, tumor lysis) can cause acute hypocalcemia. (See "Overview of the causes and treatment of hyperphosphatemia" and "Tumor lysis syndrome: Definition, pathogenesis, clinical manifestations, etiology and risk factors".) In hyperphosphatemia, calcium is deposited mostly in bone, but also in extraskeletal tissue. Chronic hyperphosphatemia is almost always due to reduced phosphate clearance in CKD where primary impairment of calcitriol synthesis in renal failure (leading to decreased intestinal calcium absorption) further aggravates the hypocalcemia. (See "Overview of chronic kidney disease-mineral and bone disorder (CKD-MBD)", section on 'Disorders of calcium balance' and "Overview of chronic kidney disease-mineral and bone disorder (CKD-MBD)", section on 'Abnormalities of parathyroid hormone, calcium, phosphorus, fibroblast growth factor 23, and vitamin D metabolism'.) Osteoblastic metastases Occasional patients with widespread osteoblastic metastases, particularly those with breast or prostate cancer, have hypocalcemia. The presumed cause is deposition of calcium in the newly formed bone around the tumor [13,14]. In a study of 131 men with advanced prostate cancer, 34 percent had elevated serum PTH concentrations, and of these, 56 percent had a low serum ionized calcium [14]. Hypocalcemia and secondary hyperparathyroidism was most common in those with progressive disease and bone metastases. Acute pancreatitis Hypocalcemia is also a frequent finding in patients with acute pancreatitis, where it is associated with precipitation of calcium soaps in the abdominal cavity [15]. The actual mechanism remains unclear. Although PTH concentrations are variable, they are typically elevated in response to hypocalcemia [16]. Sepsis or severe illness The incidence of hypocalcemia in critically ill or postsurgical patients approaches 80 to 90 percent [17]. Sepsis and severe barrios can also be associated with clinically important hypocalcemia. The cause appears to be a combination of impaired secretion of PTH coupled with reduced calcitriol production [18,19] and end-organ resistance to the action of PTH; the probable underlying mechanisms include hypomagnesemia and actions of inflammatory cytokines on the parathyroid glands, kidneys, and bone. Hypocalcemia is common in the toxic shock syndrome [20]. In addition to the above mechanisms, high serum calcitonin concentrations (which inhibit bone resorption) have been found in some patients. 4. Positive GILES and DS DNA, Histone and centromere Recommendations. Follow counts. Skelatal survey Await Path. Continue current care with close monitoring of blood counts. - Time Spent With Patient Total time spent is greater than 50% in coordination of care (as documented) at patient's floor/unit and/or counseling patient: 25 - 35 minutes
[2017-05-14] MEDS: CALCIUM 600 + VIT D 400 TABLET PO SCH ×2 (17:54→21:37)
[2017-05-14] MEDS: CYCLOBENZAPRINE 10 MG TABLET PO SCH (21:36)
[2017-05-14] MEDS: TRAZODONE 100 MG TABLET PO SCH (21:36)
[2017-05-15] MEDS: SALINE FLUSH 10ml SYRINGE IV PRN ×2 (04:24→09:29)
[2017-05-15] MEDS: HYDROCODONE/APAP 7.5 MG/325 MG TABLET PO PRN ×4 (05:59→22:08)
[2017-05-15] MEDS: OMEPRAZOLE 20 MG CAPSULE PO SCH (05:59)
--- NOTE | 2017-05-15 08:00 | Progress Note ---
<Lu Christensen - Last Filed: 05/15/17 13:05> Oncology Subjective Sitting in chair. Alert/oriented. Less swelling in neck; some interm. discomf @ biopsy site-denies pain now. Eating/drinking well. No diarrhea/constipation. Normal voiding. General: No fever, no night sweats Eyes: No redness, no pain, no diplopia ENT: mouth feeling better. Interm. soreness @ biopsy site. Cardiac: No chest pain no palpitations Pulmonary: No cough, no shortness of breath, no wheezing Abdomen: No pain, no nausea vomiting, no diarrhea or constipation : No urgency, frequency, dysuria, or hematuria Musculoskeletal: No arthritis, no myalgias Neurological: No headaches, no focal weakness Skin: No rash, no sores Psychiatric: No anxiety, no depression Exam Vital signs: Temperature 98.2 F 05/15/17 04:11 Pulse Rate 88 05/15/17 04:11 Respiratory Rate 20 05/15/17 04:11 Blood Pressure 147/73 H 05/15/17 04:11 Pulse Oximetry 94 05/15/17 04:11 - Constitutional no acute distress, obese - Routine HEENT Exam Head: Present: normocephalic Eye: Present: EOMI. Absent: conjunctival icterus ENT: Present: mucous membranes dry (slightly. No oral lesions.) - Routine Neck Exam Present: lymphadenopathy, tenderness, swelling (left neck, has decreased) - Routine Respiratory Exam Present: decreased breath sounds. Absent: rales, wheezes, crackles - Routine Cardiovascular Exam Present: RRR. Absent: no murmur - Routine Abdominal Exam Present: soft, non distended. Absent: organomegaly, mass (Difficult to assess 2nd to body habitus) - Routine Extremities Exam Present: edema (trace-1+ loli. lower extremities) - Routine Skin Exam Present: dry, pallor, warm - Routine Neurological Exam Present: alert, oriented X3 - Routine Psychiatric Exam Present: normal affect, normal thought process Oncology Results - Labs CBC & Chem 7: 05/15/17 04:22 05/15/17 04:22 Labs: Short CBC 05/15/17 Range/Units 04:22 WBC 3.4 L (4.5-11.0) T/MM3 Hgb 8.3 L (12-16) GM/DL Hct 27.6 L (36-46) % Plt Count 50 L D (130-400) T/MM3 BMP 05/15/17 04:22 Sodium 140 Potassium 3.3 L Chloride 103 Carbon Dioxide 30 BUN 17.0 Creatinine 0.8 Glucose 116 H Calcium 7.2 L Liver Function 05/15/17 Range/Units 04:22 Total Bilirubin 0.40 (0.20-1.30) MG/DL AST 58 H (14-36) U/L ALT 48 (9-52) U/L Alkaline Phosphatase 49 (38-126) U/L Albumin 2.8 L (3.5-5.0) G/DL - Impressions Date of Exam: 05/15/17 Ordering Provider: Estrada Brody MD Type of Exam(s): XR bone survey, 1 yr to adult Reason for Exam(s): Hypocalcemia. Rule out osteoblastic mets. Indication: Hypocalcemia. Rule out osteoblastic mets. PROCEDURE: XR bone survey, 1 yr to adult: Encounter: Initial Comparison: CT of chest abdomen and pelvis dated May 08, 2017 Findings: AP and lateral views of the skull: No acute fracture. No lytic or blastic osseous lesions. AP and lateral views of the cervical spine: No acute fracture. Mild degenerative disk disease. No lytic or blastic osseous lesions. The C6 vertebra is obscured by external densities. AP and lateral views of the thoracic spine: Normal alignment. No acute fracture or subluxation. DISH and mild multilevel degenerative change. No obvious lytic or blastic metastatic lesions. AP and lateral views of the lumbar spine. Postoperative changes in the lower lumbar region. No acute fracture. No lytic or blastic bony lesions appreciated. AP view of the right humerus: Negative AP view of the left humerus: Negative AP view of the right ribs: No pathologic rib lesions. AP view of the left ribs: No pathologic rib lesions. AP view of the pelvis: No acute fracture. No lytic or blastic osseous lesions. AP view of the right femur: Normal AP view of the left femur: No acute fracture. No lytic or blastic osseous lesions. Total knee replacement. AP view of the right tibia and fibula: No acute fracture. No lytic or blastic osseous lesions. Arterial vascular calcifications. AP view of the left tibia and fibula: No acute fracture. No lytic or blastic osseous lesions. AP view of the right forearm: No acute fracture. No lytic or blastic osseous lesions. AP view of the left forearm: No acute fracture. No lytic or blastic osseous lesions. Impression: No lytic or blastic osseous metastatic disease seen. . Assessment and Plan - Time Spent With Patient Total time spent is greater than 50% in coordination of care (as documented) at patient's floor/unit and/or counseling patient: less than 15 minutes <Estrada Brody - Last Filed: 05/15/17 17:45> Exam Vital signs: Temperature 98.2 F 05/15/17 04:11 Pulse Rate 88 05/15/17 04:11 Respiratory Rate 20 05/15/17 04:11 Blood Pressure 147/73 H 05/15/17 04:11 Pulse Oximetry 94 05/15/17 04:11 Oncology Results - Labs CBC & Chem 7: 05/15/17 04:22 05/15/17 04:22 Labs: Short CBC 05/15/17 Range/Units 04:22 WBC 3.4 L (4.5-11.0) T/MM3 Hgb 8.3 L (12-16) GM/DL Hct 27.6 L (36-46) % Plt Count 50 L D (130-400) T/MM3 BMP 05/15/17 04:22 Sodium 140 Potassium 3.3 L Chloride 103 Carbon Dioxide 30 BUN 17.0 Creatinine 0.8 Glucose 116 H Calcium 7.2 L Liver Function 05/15/17 Range/Units 04:22 Total Bilirubin 0.40 (0.20-1.30) MG/DL AST 58 H (14-36) U/L ALT 48 (9-52) U/L Alkaline Phosphatase 49 (38-126) U/L Albumin 2.8 L (3.5-5.0) G/DL Assessment and Plan Assessment and Plan: Assessment and plan 1. ITP status post IVIG with very good tolerance and response with a platelet count up to 88,000 on 05/14/17. Dropped to 50K on 05/15/17. Await lymph node biopsy. Consider Steroids, IVIg or rituxamab. Will await lymph node biopsy. Lymph node biopsy is worrisome for higher grade lymphoma. It is going to be sent to [facility]. Because of the drop in the platelets, will begin therapy with IV Solu-Medrol. Will start at a lower dose of 125 every 8 and see white count is in the morning. 2. 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 Bone marrow biopsy showed granulomas. Right cervical lymph node biopsies pending. Right cervical lymph node biopsy per Dr. Harris has some changes worrisome for high-grade lymphoma. Will await 3. Hypocalcemia with decreased ionized calcium is 0.9 for an elevated PTH of 470 Ca 7.2 on 05/15/17. Albumin 2.8. Still low with correction. Phosphorus is high at 5.1. Skeletal survey is negative for osteoblastic metastatic disease. Nothing is seen on CT scan. Calcium is still low. HYPOCALCEMIA WITH HIGH PTH Other disorders that cause hypocalcemia are associated with a high parathyroid hormone (PTH). In these cases, PTH is increased in response to low serum calcium concentrations, in an attempt to mobilize calcium from kidney and bone and to increase 1,25-dihydroxyvitamin D production. Chronic hypocalcemia occurs when these actions are inadequate to restore the serum calcium to normal. Vitamin D deficiency or resistance Decreased production or action of vitamin D may cause hypocalcemia with a high PTH. Causes of vitamin D deficiency include poor intake or malabsorption coupled with reduced exposure to ultraviolet light, decreased 25-hydroxylation of vitamin D to form calcidiol (25 -hydroxyvitamin D) in the liver, increased metabolism to inactive metabolites, decreased 1-hydroxylation of calcidiol to calcitriol (1,25-dihydroxyvitamin D) in the kidney, and decreased calcitriol action. (See "Causes of vitamin D deficiency and resistance".) Chronic kidney disease The most common cause of an acquired decrease in renal production of 1,25-dihydroxyvitamin D is chronic kidney disease (CKD). In contrast to other forms of hypocalcemia associated with vitamin D deficiency, hypocalcemia in CKD is also due to the occurrence of hyperphosphatemia (due to reduction in the filtered phosphate load and a reduction in the fractional excretion of phosphorus) [11]. Hypocalcemia typically does not occur until end- stage CKD (G5, estimated glomerular filtration rate [eGFR] <15 mL/min or treatment by dialysis). (See 'Hyperphosphatemia' below and "Management of secondary hyperparathyroidism in dialysis patients".) PTH resistance (impaired PTH action) Pseudohypoparathyroidism, which presents in childhood, refers to a group of heterogeneous disorders defined by target organ (kidney and bone) unresponsiveness to PTH due to an alteration in the postreceptor PTH signaling pathway. It is characterized by hypocalcemia, hyperphosphatemia, and, in contrast to hypoparathyroidism, elevated rather than reduced PTH concentrations. This disorder is discussed elsewhere. (See " Etiology of hypocalcemia in infants and children", section on 'End-organ resistance to PTH (pseudohypoparathyroidism)'.) PTH resistance has also been associated with a recessive missense mutation in the mature PTH(1-84) sequence, resulting in resistance to PTH because of reduced PTH-receptor binding [12]. It is characterized by hypocalcemia and hyperphosphatemia and, depending on the assay used to measure PTH, either elevated or low-normal concentrations of circulating PTH. Extravascular deposition Ionized calcium can be lost from the extracellular fluid either by deposition in tissues or by binding within the vascular space. Hyperphosphatemia In patients with impaired renal excretion or in acute renal failure, increased phosphate intake (overzealous oral administration or phosphate enemas) or excess tissue breakdown (rhabdomyolysis, tumor lysis) can cause acute hypocalcemia. (See "Overview of the causes and treatment of hyperphosphatemia" and "Tumor lysis syndrome: Definition, pathogenesis, clinical manifestations, etiology and risk factors".) In hyperphosphatemia, calcium is deposited mostly in bone, but also in extraskeletal tissue. Chronic hyperphosphatemia is almost always due to reduced phosphate clearance in CKD where primary impairment of calcitriol synthesis in renal failure (leading to decreased intestinal calcium absorption) further aggravates the hypocalcemia. (See "Overview of chronic kidney disease-mineral and bone disorder (CKD-MBD)", section on 'Disorders of calcium balance' and "Overview of chronic kidney disease-mineral and bone disorder (CKD-MBD)", section on 'Abnormalities of parathyroid hormone, calcium, phosphorus, fibroblast growth factor 23, and vitamin D metabolism'.) Osteoblastic metastases Occasional patients with widespread osteoblastic metastases, particularly those with breast or prostate cancer, have hypocalcemia. The presumed cause is deposition of calcium in the newly formed bone around the tumor [13,14]. In a study of 131 men with advanced prostate cancer, 34 percent had elevated serum PTH concentrations, and of these, 56 percent had a low serum ionized calcium [14]. Hypocalcemia and secondary hyperparathyroidism was most common in those with progressive disease and bone metastases. Acute pancreatitis Hypocalcemia is also a frequent finding in patients with acute pancreatitis, where it is associated with precipitation of calcium soaps in the abdominal cavity [15]. The actual mechanism remains unclear. Although PTH concentrations are variable, they are typically elevated in response to hypocalcemia [16]. Sepsis or severe illness The incidence of hypocalcemia in critically ill or postsurgical patients approaches 80 to 90 percent [17]. Sepsis and severe barrios can also be associated with clinically important hypocalcemia. The cause appears to be a combination of impaired secretion of PTH coupled with reduced calcitriol production [18,19] and end-organ resistance to the action of PTH; the probable underlying mechanisms include hypomagnesemia and actions of inflammatory cytokines on the parathyroid glands, kidneys, and bone. Hypocalcemia is common in the toxic shock syndrome [20]. In addition to the above mechanisms, high serum calcitonin concentrations (which inhibit bone resorption) have been found in some patients. 4. Positive GILES and DS DNA, Histone and centromere Recommendations. Follow counts. Await Path. Continue current care with close monitoring of blood counts. Start Solumedrol 125 every 8 hours. - Time Spent With Patient Total time spent is greater than 50% in coordination of care (as documented) at patient's floor/unit and/or counseling patient: 25 - 35 minutes
[2017-05-15] MEDS ORDERED: ENOXAPARIN 80 MG/0.8 ML INJECTION SQ SCH (09:00)
--- NOTE | 2017-05-15 09:05 | XRay Report ---
Indication: Hypocalcemia. Rule out osteoblastic mets. PROCEDURE: XR bone survey, 1 yr to adult: Encounter: Initial Comparison: CT of chest abdomen and pelvis dated May 08, 2017 Findings: AP and lateral views of the skull: No acute fracture. No lytic or blastic osseous lesions. AP and lateral views of the cervical spine: No acute fracture. Mild degenerative disk disease. No lytic or blastic osseous lesions. The C6 vertebra is obscured by external densities. AP and lateral views of the thoracic spine: Normal alignment. No acute fracture or subluxation. DISH and mild multilevel degenerative change. No obvious lytic or blastic metastatic lesions. AP and lateral views of the lumbar spine. Postoperative changes in the lower lumbar region. No acute fracture. No lytic or blastic bony lesions appreciated. AP view of the right humerus: Negative AP view of the left humerus: Negative AP view of the right ribs: No pathologic rib lesions. AP view of the left ribs: No pathologic rib lesions. AP view of the pelvis: No acute fracture. No lytic or blastic osseous lesions. AP view of the right femur: Normal AP view of the left femur: No acute fracture. No lytic or blastic osseous lesions. Total knee replacement. AP view of the right tibia and fibula: No acute fracture. No lytic or blastic osseous lesions. Arterial vascular calcifications. AP view of the left tibia and fibula: No acute fracture. No lytic or blastic osseous lesions. AP view of the right forearm: No acute fracture. No lytic or blastic osseous lesions. AP view of the left forearm: No acute fracture. No lytic or blastic osseous lesions. Impression: No lytic or blastic osseous metastatic disease seen. .
[2017-05-15] MEDS: CLOTRIMAZOLE 10 MG TROCHE MM SCH ×5 (09:27→22:08)
[2017-05-15] MEDS: CALCIUM 600 + VIT D 400 TABLET PO SCH ×3 (09:27→22:09)
[2017-05-15] MEDS: TORSEMIDE 20 MG TABLET PO SCH (09:27)
[2017-05-15] MEDS: POLYETHYL GLYCOL 3350 17gm PACKET PO SCH (09:28)
[2017-05-15] MEDS: PredniSONE 2.5 MG TABLET PO SCH (09:28)
[2017-05-15] MEDS: SENNA + DOCUSATE TABLET PO SCH ×2 (09:28→22:01)
[2017-05-15] MEDS: DULOXETINE 60 MG CAPSULE PO SCH (09:28)
[2017-05-15] MEDS: ATENOLOL 25 MG TABLET PO SCH (09:28)
[2017-05-15] MEDS: GABAPENTIN 600 MG TABLET PO SCH ×3 (09:28→22:08)
[2017-05-15] MEDS: ALLOPURINOL 100 MG TABLET PO SCH (09:29)
--- NOTE | 2017-05-15 09:55 | General Surgery Progress Note ---
Subjective Patient reports: no new complaints (pain right neck is minimal), tolerating a regular diet, voiding w/o difficulty - Vital Signs Last Vital Signs Temp 98.2 F 05/15/17 04:11 Pulse 88 05/15/17 04:11 Resp 20 05/15/17 04:11 BP 147/73 H 05/15/17 04:11 Pulse Ox 94 05/15/17 04:11 - Laboratory Result Diagrams: 05/15/17 04:22 05/15/17 04:22 - Microbiogy Microbiology 05/13/17 13:32 Lymph Node Acid Fast Bacilli Culture & Smear - Preliminary 05/13/17 13:32 Lymph Node Fungal Culture - Preliminary - Normal Exam General: awake, alert, oriented, no acute distress Neck: other (right neck incision with DermaBond in tact. some ecchmosis, no erythema) Respiratory: clear bilaterally, no labored breathing Abdominal: soft, non-tender Psychiatric: normal affect Neurological: CN 2-12 grossly intact Assessment and Plan (1) Lymphadenopathy of right cervical region Current Visit: Yes Status: Acute (2) Thrombocytopenia Current Visit: Yes Status: Acute Plan: Surgical incision healing, it will "smooth out" some as the swelling goes down and the healing ridge softens over the next couple of months. We will remain available should any surgical needs arise, but will not see the patient on a regular basis. Will have a routine follow up appointment in the office in 2-3 weeks. Hospital Course Summary Disclaimer: The visit summary below is not to be considered part of the above Progress Note. Hospital Course: 05/07/17 Impression Dehydration Tachycardia-present on admission Thrombocytopenia-present on admission Lymphadenopathy with right mastoid tenderness Type II diabetes Peripheral neuropathy Psoriatic arthritis GERD Pulmonary emboli with chronic anticoagulation Fibromyalgia Chronic back pain Obstructive sleep apnea Plan Admit patient, observation under the care of Dr. Haley for dehydration with tachycardia and thrombocytopenia. Did review outpatient labs from this morning done at [facility] this morning. Glassblower was 1.2. Will obtain CT scan of soft tissue neck to further evaluate lymphadenopathy as well as right-sided mastoid tenderness. Place patient on cardiac telemetry to monitor given evidence tachycardia. Twelve -lead EKG is obtained during examination does reveal sinus tach, rate of 135. Will order PRN Lopressor 5 mg IV every 6 hrs PRN sustained tachycardia greater than 120. Obtain orthostatic vital signs BID Monitor accuchecks given DM Consultation with Dr Brody for further immunology evaluation and recommendation. Concern thrombocytopenia with lymphadenopathy Obtain Urine Glassblower and urine sodium given hyponatremia Consult to pharmacy for Coumadin dosing management SCD to bilateral lower ext Home medications will need to be reviewed once reconciled Patient does wish to be a full code and this order is written Recheck CBC and BMP tomorrow morning to follow blood counts, renal function and electrolytes. Will discuss further orders and plan of care with today, Dr. Haley. At time of discharge medical care will return to primary care provider's in [place], [place], Dr True Casiano 05/08/17 Worsening thrombocytopenia overnight, extensive adenopathy on CT imaging of chest/abdomen/pelvis. No response to initial platelet pack-likely autoimmune destruction. Additional platelet is being given due to bleeding bone marrow biopsy site. High-dose steroids initiated in conjunction with FFP per Dr. Brody. Bone marrow obtained-results pending. 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 Tachycardia improving with fluid administration-continue. Fevers controlled with frequent doses acetaminophen/[place]. Continue ceftriaxone for sepsis-will contact Dr. Casiano in [place] tomorrow regarding culture results. Warfarin on hold due to thrombocytopenia/bleeding. SCDs for DVT prophylaxis. 05/09/16- IVIG infusion started by Dr Brody. Continued severe thrombocytopenia. Patient having some bleeding in the gums, nose, and petechiae rash to extremities noted today. Resume Demadex/decrease IV fluids-still receiving significant volume with other IV products. 05/10/17: Currently euvolemic. Continued IVIG and Solu-Medrol per Dr. Brody. Platelets 20K. 05/11/17: PRBC transfusion (hgb decreased from 10.2 -->7.8). Platelets improved to 47 and lymph nodes were decreasing in size. 05/12/17: Thrush diagnosed and Nystatin was started. Platelets up to 77. On Lovenox for PPX. Mild hypokalemia (3.3) and KDur was given. 05/13/17: Node biopsy performed today. Resumed home dose of potassium 10 mEq 3 times a day. 40 mEq potassium 1 given today as well. (Potassium 3.1 today). Platelets up to 94. 05/14/17: Patient doing well. Labs stable today-Hemoglobin 8.8, potassium 3.7, platelets 88,000. If Dr. Brody agrees, will discharge today with close laboratory follow-up outpatient.
[2017-05-15] MEDS: INSULIN REGULAR, HUMAN 100 UNIT/ML INJECTION SQ PRN ×3 (11:28→20:22)
--- NOTE | 2017-05-15 11:37 | Progress Note ---
- Date 05/15/17 Subjective: Ava is a bit more uncomfortable today - increased right neck pain (from biopsy ), rates it 4-5/10. She asked for a [place] just before I arrived, which is rare. She has a lot of bruising to arms/legs. She thinks that the swelling in her legs is slightly worse. She denies feeling short of air. No weakness or dizziness. She's been ambulating well. She denies abdominal pain or nausea/ vomiting. Objective Vital signs: Temperature 98.2 F 05/15/17 04:11 Pulse Rate 88 05/15/17 04:11 Respiratory Rate 20 05/15/17 04:11 Blood Pressure 147/73 H 05/15/17 04:11 Pulse Oximetry 94 05/15/17 04:11 Height/Weight/BMI: Height 1.55 m Weight 112.7 kg Body Mass Index 44.9 - Constitutional Present: no acute distress, well nourished, well developed, morbidly obese - Routine HEENT Exam Head: Present: normocephalic Eye: Present: PERRL. Absent: conjunctival icterus, scleral injection ENT: Present: mucous membranes moist, oropharynx clear Comments: biopsy site to right anterior neck is erythemic, mildly ecchymotic, slightly swollen, tender - Routine Respiratory Exam Present: CTA bilaterally - Routine Cardiovascular Exam Present: RRR, S1, S2 - Routine Abdominal Exam Present: soft, normoactive bowel sounds, non distended, non tender - Routine Extremities Exam Present: edema (1+ BLE) - Routine Musculoskeletal Exam Musculoskeletal: Present: moving extremities well - Routine Skin Exam Present: dry, warm, ecchymosis (multiple areas of ecchymosis to extremities, biopsy site, left lower orbit) - Routine Neurological Exam Present: alert, oriented X3, CN II-XII intact, moving all extremities, normal speech - Routine Psychiatric Exam Present: normal affect, normal thought process, cooperative Results - Labs CBC & Chem 7: 05/15/17 04:22 05/15/17 04:22 Microbiology Results: Microbiology 05/13/17 13:32 Lymph Node Acid Fast Bacilli Culture & Smear - Preliminary 05/13/17 13:32 Lymph Node Fungal Culture - Preliminary Assessment and Plan (1) Dehydration Current visit: Yes Status: Acute (2) Thrombocytopenia Current visit: Yes Status: Acute Assessment and Plan: Impression Dehydration-POA with FeNa 0.29% and associated tachycardia -- resolved Thrombocytopenia-POA Lymphadenopathy, extensive Right mastoid tenderness, possible phlegmon inferior right auditory canal Thrush - improved Hypokalemia Progressive anemia Pulmonary emboli, chronically anticoagulated - oral anticoagulant on hold Type II diabetes Peripheral neuropathy Psoriatic arthritis GERD Chronic back pain, fibromyalgia Hyperlipidemia, hypertension Obstructive sleep apnea, on CPAP Plan Thrombocytopenia-POA - -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 Brody -FFP on 05/08 -Plts decreased to 50,000 -Lovenox discontinued Lymphadenopathy, extensive -Lymph node biopsy performed 05/13/17. Results pending. Hypokalemia -Resumed home potassium dose of 10 mEq 3 times a day on 05/13/17 -give additional KDur 20 mEq Progressive anemia -+YOLA, no hemolysis (haptoglobin nml) -Retic elevated -s/p PRBC transfusion Elevated PTH, hypocalcemia -Vitamin D studies are pending Right mastoid tenderness, possible phlegmon inferior right auditory canal -Completed #7 days of Rocephin on 05/14/17. No further antibiotics needed at this time. Thrush -resolved on Mycelex troches 05/15/2017-10:38 PM-I reviewed this chart, the patient history, and the WEB SERVICES MANAGER's/ PA's documented findings as above. We discussed and formulated the assessment and plan as above with the additions below.-Dr. Doyle Patient is seen this evening. She states she is doing okay. She denies any shortness of breath. Pain in her neck is stable. Platelets were decreased again today. I did discuss the patient with Dr. Brody and he is restarting steroids. Pathology of lymph nodes in her neck is concerning for high-grade lymphoma and Path was sent to [place] for further evaluation. On exam the patient is in no acute distress. Neck still reveals fullness from her lymphadenopathy. Chest is clear to auscultation. Cardiovascular reveals a regular rate and rhythm. Abdomen is soft and nontender. Extremities reveal +1 edema. The patient states to me that she thinks it's a little worse than normal. Impression and plan Agree with steroids for thrombocytopenia Lovenox on hold due to thrombocytopenia. Discussed with Dr. Brody. Hypocalcemia has improved with calcium and vitamin D. Vitamin D studies are pending. Patient may benefit from small amount of diuretic. We'll reevaluate tomorrow. Resuscitation Status: Full Code - Physician Narrative Narrative: Date: 05/15/17 Time: 1135 Hospital Course Summary Disclaimer: The visit summary below is not to be considered part of the above Progress Note. Hospital Course: 05/07/17 Impression Dehydration Tachycardia-present on admission Thrombocytopenia-present on admission Lymphadenopathy with right mastoid tenderness Type II diabetes Peripheral neuropathy Psoriatic arthritis GERD Pulmonary emboli with chronic anticoagulation Fibromyalgia Chronic back pain Obstructive sleep apnea Plan Admit patient, observation under the care of Dr. Haley for dehydration with tachycardia and thrombocytopenia. Did review outpatient labs from this morning done at [facility] this morning. Pasteurizing Supervisor was 1.2. Will obtain CT scan of soft tissue neck to further evaluate lymphadenopathy as well as right-sided mastoid tenderness. Place patient on cardiac telemetry to monitor given evidence tachycardia. Twelve -lead EKG is obtained during examination does reveal sinus tach, rate of 135. Will order PRN Lopressor 5 mg IV every 6 hrs PRN sustained tachycardia greater than 120. Obtain orthostatic vital signs BID Monitor accuchecks given DM Consultation with Dr Brody for further immunology evaluation and recommendation. Concern thrombocytopenia with lymphadenopathy Obtain Urine Pasteurizing Supervisor and urine sodium given hyponatremia Consult to pharmacy for Coumadin dosing management SCD to bilateral lower ext Home medications will need to be reviewed once reconciled Patient does wish to be a full code and this order is written Recheck CBC and BMP tomorrow morning to follow blood counts, renal function and electrolytes. Will discuss further orders and plan of care with today, Dr. Haley. At time of discharge medical care will return to primary care provider's in [place], [place], Dr True Casiano 05/08/17 Worsening thrombocytopenia overnight, extensive adenopathy on CT imaging of chest/abdomen/pelvis. No response to initial platelet pack-likely autoimmune destruction. Additional platelet is being given due to bleeding bone marrow biopsy site. High-dose steroids initiated in conjunction with FFP per Dr. Brody. Bone marrow obtained-results pending. 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 Tachycardia improving with fluid administration-continue. Fevers controlled with frequent doses acetaminophen/[place]. Continue ceftriaxone for sepsis-will contact Dr. Casiano in [place] tomorrow regarding culture results. Warfarin on hold due to thrombocytopenia/bleeding. SCDs for DVT prophylaxis. 05/09/16- IVIG infusion started by Dr Brody. Continued severe thrombocytopenia. Patient having some bleeding in the gums, nose, and petechiae rash to extremities noted today. Resume Demadex/decrease IV fluids-still receiving significant volume with other IV products. 05/10/17: Currently euvolemic. Continued IVIG and Solu-Medrol per Dr. Brody. Platelets 20K. 05/11/17: PRBC transfusion (hgb decreased from 10.2 -->7.8). Platelets improved to 47 and lymph nodes were decreasing in size. 05/12/17: Thrush diagnosed and Mycelex was started. Platelets up to 77. On Lovenox for PPX. Mild hypokalemia (3.3) and KDur was given. 05/13/17: Node biopsy performed today. Resumed home dose of potassium 10 mEq 3 times a day. 40 mEq potassium 1 given today as well. (Potassium 3.1 today). Platelets up to 94. 05/14/17: Patient doing well. Labs stable today-Hemoglobin 8.8, potassium 3.7, platelets 88,000. Elevated PTH and hypocalcemia - Vit D studies ordered. Lovenox was ordered for VTE prophylaxis. Blood cultures from outside facility were negative at 5 days. 05/15/17: Platelets decreased to 50; Lovenox was discontinued. K 3.3. Biopsy results pending. Hgb 8.3.
[2017-05-15] MEDS: CEFTRIAXONE 1 G in NS 100 ML IV SCH (12:55)
[2017-05-15] MEDS: METHYLPREDNISOLONE SOD SUCC 125mg/2ml INJECTION IVP SCH (18:05)
[2017-05-15] MEDS: CYCLOBENZAPRINE 10 MG TABLET PO SCH (22:01)
[2017-05-15] MEDS: TRAZODONE 100 MG TABLET PO SCH (22:09)
[2017-05-16] MEDS: SALINE FLUSH 10ml SYRINGE IV PRN ×2 (02:27→09:43)
[2017-05-16] MEDS: METHYLPREDNISOLONE SOD SUCC 125mg/2ml INJECTION IVP SCH (02:27)
[2017-05-16] MEDS: INSULIN REGULAR, HUMAN 100 UNIT/ML INJECTION SQ PRN ×4 (06:28→22:18)
[2017-05-16] MEDS: OMEPRAZOLE 20 MG CAPSULE PO SCH (06:54)
[2017-05-16] MEDS: CALCIUM 600 + VIT D 400 TABLET PO SCH ×3 (09:30→22:15)
[2017-05-16] MEDS: SENNA + DOCUSATE TABLET PO SCH ×2 (09:31→22:16)
[2017-05-16] MEDS: CLOTRIMAZOLE 10 MG TROCHE MM SCH ×5 (09:31→22:16)
[2017-05-16] MEDS: ALLOPURINOL 100 MG TABLET PO SCH (09:31)
[2017-05-16] MEDS: DULOXETINE 60 MG CAPSULE PO SCH (09:32)
[2017-05-16] MEDS: ATENOLOL 25 MG TABLET PO SCH (09:32)
[2017-05-16] MEDS: GABAPENTIN 600 MG TABLET PO SCH ×3 (09:33→22:15)
[2017-05-16] MEDS: TORSEMIDE 20 MG TABLET PO SCH (09:33)
[2017-05-16] MEDS: POLYETHYL GLYCOL 3350 17gm PACKET PO SCH (09:36)
[2017-05-16] MEDS: MethylPREDNISolone SOD SUCC 1,000 MG in NS 250ml 250 ML IV SCH (09:42)
--- NOTE | 2017-05-16 11:42 | Progress Note ---
- Date 05/16/17 Subjective: Ava is feeling a little better today compared to yesterday but is feeling down b/c her platelet count isn't improving, which means she can't go home yet. Her biopsy site on the right side of her neck has improved and she hasn't requested a pain pill since last night. She denies SOA or cough. She denies chest pain. No abdominal pain or nausea. Objective Vital signs: Temperature 96.8 F 05/16/17 08:22 Pulse Rate 76 05/16/17 08:22 Respiratory Rate 20 05/16/17 08:22 Blood Pressure 152/76 H 05/16/17 08:22 Pulse Oximetry 95 05/16/17 08:22 Height/Weight/BMI: Height 1.55 m Weight 109.5 kg Body Mass Index 44.9 - Constitutional Present: no acute distress, well nourished, well developed Comments: lymph node biopsy site with less swelling today - Routine HEENT Exam Head: Present: normocephalic Eye: Absent: conjunctival icterus ENT: Present: mucous membranes moist, oropharynx clear - Routine Respiratory Exam Present: CTA bilaterally - Routine Cardiovascular Exam Present: RRR, S1, S2 - Routine Abdominal Exam Present: soft, normoactive bowel sounds, non distended, non tender - Routine Extremities Exam Present: no edema, pulses intact - Routine Musculoskeletal Exam Musculoskeletal: Present: moving extremities well - Routine Skin Exam Present: intact, dry, warm, ecchymosis - Routine Neurological Exam Present: alert, oriented X3, normal speech - Routine Psychiatric Exam Present: normal affect, normal thought process, cooperative Results - Labs CBC & Chem 7: 05/16/17 04:51 05/16/17 04:51 Microbiology Results: Microbiology 05/13/17 13:32 Lymph Node Acid Fast Bacilli Culture & Smear - Preliminary 05/13/17 13:32 Lymph Node Fungal Culture - Preliminary Assessment and Plan (1) Dehydration Current visit: Yes Status: Acute (2) Thrombocytopenia Current visit: Yes Status: Acute Assessment and Plan: Impression Dehydration-POA with FeNa 0.29% and associated tachycardia -- resolved Thrombocytopenia-POA Lymphadenopathy, extensive Right mastoid tenderness, possible phlegmon inferior right auditory canal Thrush - improved Hypokalemia Progressive anemia Pulmonary emboli, chronically anticoagulated - oral anticoagulant on hold Type II diabetes Peripheral neuropathy Psoriatic arthritis GERD Chronic back pain, fibromyalgia Hyperlipidemia, hypertension Obstructive sleep apnea, on CPAP Plan Thrombocytopenia-POA -ITP 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 Brody. IV steroids and IVIG resumed 05/16/17. -FFP on 05/08 Lymphadenopathy, extensive -Lymph node biopsy performed 05/13/17. Results of lymph node biopsy and bone marrow biopsy are pending. Hypokalemia -Resolved Progressive anemia -+YOLA, no hemolysis (haptoglobin nml); Retic elevated -s/p PRBC transfusion Elevated PTH, hypocalcemia -Vitamin D studies are pending Right mastoid tenderness, possible phlegmon inferior right auditory canal -Completed #9 days of Rocephin on 05/16/17. No further antibiotics needed at this time. Thrush -resolved on Mycelex troches 05/16/2017-9:28 PM-I reviewed this chart, the patient history, and the CUSHION MAKER HAND's/PA 's documented findings as above. We discussed and formulated the assessment and plan as above with the additions below.-Dr. Doyle I saw the patient earlier this evening. She states her neck pain has improved. She denies any shortness of breath. She is discouraged about the pathology report showing probable lymphoma. On exam she is alert and oriented and in no acute distress. Chest is clear to auscultation. Cardiovascular reveals a regular rate and rhythm. Abdomen is soft , obese and nontender with positive bowel sounds. Extremities reveal +1 pretibial edema. We are awaiting further testing from [facility]. She was started on IVIG for possible ITP with platelets down to 26 today. She has finished her 7 days of Rocephin. Hypocalcemia has resolved with calcium and vitamin D. Vitamin D levels are pending. Discussed today with Dr. Brody. DVT Prophylaxis: SCD's Resuscitation Status: Full Code - Physician Narrative Narrative: Date: 05/16/17 Time: 1140 Hospital Course Summary Disclaimer: The visit summary below is not to be considered part of the above Progress Note. Hospital Course: 05/07/17 Impression Dehydration Tachycardia-present on admission Thrombocytopenia-present on admission Lymphadenopathy with right mastoid tenderness Type II diabetes Peripheral neuropathy Psoriatic arthritis GERD Pulmonary emboli with chronic anticoagulation Fibromyalgia Chronic back pain Obstructive sleep apnea Plan Admit patient, observation under the care of Dr. Haley for dehydration with tachycardia and thrombocytopenia. Did review outpatient labs from this morning done at [facility] this morning. Shipping Team Leader was 1.2. Will obtain CT scan of soft tissue neck to further evaluate lymphadenopathy as well as right-sided mastoid tenderness. Place patient on cardiac telemetry to monitor given evidence tachycardia. Twelve -lead EKG is obtained during examination does reveal sinus tach, rate of 135. Will order PRN Lopressor 5 mg IV every 6 hrs PRN sustained tachycardia greater than 120. Obtain orthostatic vital signs BID Monitor accuchecks given DM Consultation with Dr Brody for further immunology evaluation and recommendation. Concern thrombocytopenia with lymphadenopathy Obtain Urine Shipping Team Leader and urine sodium given hyponatremia Consult to pharmacy for Coumadin dosing management SCD to bilateral lower ext Home medications will need to be reviewed once reconciled Patient does wish to be a full code and this order is written Recheck CBC and BMP tomorrow morning to follow blood counts, renal function and electrolytes. Will discuss further orders and plan of care with today, Dr. Haley. At time of discharge medical care will return to primary care provider's in [place], [place], Dr True Casiano 05/08/17 Worsening thrombocytopenia, extensive adenopathy on CT imaging of chest/abdomen/ pelvis. No response to initial platelet pack-likely autoimmune destruction. Additional platelet is being given due to bleeding bone marrow biopsy site. High-dose steroids initiated in conjunction with FFP per Dr. Brody. Bone marrow obtained-results pending. 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 Tachycardia improving with fluid administration-continue. Fevers controlled with frequent doses acetaminophen/[place]. Continue ceftriaxone for sepsis-will contact Dr. Casiano in [place] tomorrow regarding culture results. Warfarin on hold due to thrombocytopenia/bleeding. SCDs for DVT prophylaxis. 05/09/16- IVIG infusion started by Dr Brody. Continued severe thrombocytopenia. Patient having some bleeding in the gums, nose, and petechiae rash to extremities noted today. Resume Demadex/decrease IV fluids-still receiving significant volume with other IV products. 05/10/17: Currently euvolemic. Continued IVIG and Solu-Medrol per Dr. Brody. Platelets 20K. 05/11/17: PRBC transfusion (hgb decreased from 10.2 -->7.8). Platelets improved to 47 and lymph nodes were decreasing in size. 05/12/17: Thrush diagnosed and Mycelex was started. Platelets up to 77. On Lovenox for PPX. Mild hypokalemia (3.3) and KDur was given. 05/13/17: Node biopsy performed today. Resumed home dose of potassium 10 mEq 3 times a day. 40 mEq potassium 1 given today as well. (Potassium 3.1 today). Platelets up to 94. 05/14/17: Patient doing well. Labs stable today-Hemoglobin 8.8, potassium 3.7, platelets 88,000. Elevated PTH and hypocalcemia - Vit D studies ordered. Lovenox was ordered for VTE prophylaxis. Blood cultures from outside facility were negative at 5 days. 05/15/17: Platelets decreased to 50; Lovenox was discontinued. K 3.3. Biopsy results pending. Hgb 8.3. 05/16/17: Platelets down to [address] Brody restarted IV steroids and IVIG. Hgb 8.6. K 4.1.
[2017-05-16] MEDS: CEFTRIAXONE 1 G in NS 100 ML IV SCH (12:35)
[2017-05-16] MEDS ORDERED: ACETAMINOPHEN 500 MG TABLET PO ONE (14:33)
[2017-05-16] MEDS ORDERED: DiphenhydrAMINE 50 MG/ML INJECTION IVP ONE (14:34)
[2017-05-16] MEDS: RTU SALINE IV SCH (14:36)
[2017-05-16] MEDS: IVIG PRIVIGEN IV SCH (14:36)
--- NOTE | 2017-05-16 17:39 | Progress Note ---
Oncology Subjective Patient feeling fairly well today. Platelets have dropped dramatically overnight to 20 6K. Will increase steroids to 1 g of Solu-Medrol and add immune globulin. No bleeding no bruising. Pathology is still currently pending been sent to [facility]. Exam Vital signs: Temperature 96.0 F L 05/16/17 15:28 Pulse Rate 71 05/16/17 16:00 Respiratory Rate 16 05/16/17 15:28 Blood Pressure 145/73 H 05/16/17 15:28 Pulse Oximetry 96 05/16/17 15:28 - Constitutional no acute distress, obese - Routine HEENT Exam Head: Present: normocephalic Eye: Present: EOMI, PERRL Throat: normal inspection - Routine Neck Exam Present: supple, lymphadenopathy Comments: Bruising and right neck from biopsy. - Routine Respiratory Exam Present: CTA bilaterally. Absent: accessory muscle use, rales - Routine Cardiovascular Exam Present: RRR. Absent: no murmur - Routine Abdominal Exam Present: soft, non distended, non tender - Routine Extremities Exam Present: clubbing. Absent: cyanosis, edema (1-2+) - Routine Skin Exam Present: dry, warm, ecchymosis - Routine Neurological Exam Present: alert, oriented X3, CN II-XII intact - Routine Psychiatric Exam Present: normal affect, normal thought process Oncology Results - Labs CBC & Chem 7: 05/16/17 04:51 05/16/17 04:51 Labs: Short CBC 05/16/17 Range/Units 04:51 WBC 3.3 L (4.5-11.0) T/MM3 Hgb 8.6 L (12-16) GM/DL Hct 29.1 L (36-46) % Plt Count 26 L* D (130-400) T/MM3 BMP 05/16/17 04:51 Sodium 141 Potassium 4.1 D Chloride 103 Carbon Dioxide 30 BUN 21.0 H Creatinine 0.7 Glucose 203 H Calcium 8.4 D Liver Function 05/16/17 Range/Units 04:51 Total Bilirubin 0.40 (0.20-1.30) MG/DL AST 51 H (14-36) U/L ALT 40 (9-52) U/L Alkaline Phosphatase 50 (38-126) U/L Albumin 3.1 L (3.5-5.0) G/DL Laboratory Tests 05/08/17 05/08/17 05/08/17 04:00 04:00 10:04 WBC Hgb Plt Count Potassium Calcium Ionized Calcium Noemi Phosphorus Magnesium Total Bilirubin AST 63 H ALT Lactate Dehydrogenase Albumin PTH Intact Ur Total Protein Timed 337.5 H Urine Total Protein 27 H U Tot Galt Light 24h 10.2 H U Tot Lambda Light 24h 5.06 H Tot Galt/Lambda Ratio 2.02 IgM 321.27 H Free Galt Light Chains 5.17 H Free Lambda Light Chain 6.81 H Free Galt/Lambda Ratio 0.7592 05/10/17 05/11/17 05/12/17 04:33 03:56 04:24 WBC Hgb Plt Count Potassium Calcium Ionized Calcium Noemi Phosphorus Magnesium Total Bilirubin AST 64 H 69 H 75 H ALT Lactate Dehydrogenase Albumin PTH Intact Ur Total Protein Timed Urine Total Protein U Tot Galt Light 24h U Tot Lambda Light 24h Tot Galt/Lambda Ratio IgM Free Galt Light Chains Free Lambda Light Chain Free Galt/Lambda Ratio 05/14/17 05/14/17 05/15/17 03:55 16:03 04:22 WBC 3.4 L Hgb 8.3 L Plt Count 50 L D Potassium Calcium Ionized Calcium Noemi 0.94 L Phosphorus Magnesium Total Bilirubin AST 94 H ALT Lactate Dehydrogenase Albumin PTH Intact 490.8 H Ur Total Protein Timed Urine Total Protein U Tot Galt Light 24h U Tot Lambda Light 24h Tot Galt/Lambda Ratio IgM Free Galt Light Chains Free Lambda Light Chain Free Galt/Lambda Ratio 05/15/17 05/16/17 05/16/17 04:22 04:51 04:51 WBC 3.3 L Hgb 8.6 L Plt Count 26 L* D Potassium 3.3 L Calcium 7.2 L Ionized Calcium Noemi Phosphorus 5.1 H Magnesium 2.0 Total Bilirubin 0.40 AST 58 H 51 H ALT 40 Lactate Dehydrogenase 679 H 701 H Albumin 2.8 L PTH Intact Ur Total Protein Timed Urine Total Protein U Tot Galt Light 24h U Tot Lambda Light 24h Tot Galt/Lambda Ratio IgM Free Galt Light Chains Free Lambda Light Chain Free Galt/Lambda Ratio Assessment and Plan Assessment and Plan: Assessment and plan 1. ITP status post IVIG with very good tolerance and response with a platelet count up to 88,000 on 05/14/17. Dropped to 50K on 05/15/17. Await lymph node biopsy. Consider Steroids, IVIg or rituxamab. Will await lymph node biopsy. Lymph node biopsy is worrisome for higher grade lymphoma. It is going to be sent to [facility]. Because of the drop in the platelets, will begin therapy with IV Solu-Medrol. She began 125 every 8 on 05/15 today her platelets were 26, 000. Will increase to 1000 mg daily. Will also an IVIG 400 mg/kg daily for the next 5 days. Will consider Rituxan but because of possible lymphoma will await biopsy to come back. 2. 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 Bone marrow biopsy showed granulomas. Right cervical lymph node biopsies pending. Right cervical lymph node biopsy per Dr. Harris has some changes worrisome for high-grade lymphoma. Pathology is been sent to [facility]. Currently await pathology review 3. Hypocalcemia with decreased ionized calcium is 0.9 for an elevated PTH of 470 Ca 7.2 on 05/15/17. Albumin 2.8. Still low with correction. Phosphorus is high at 5.1. Skeletal survey is negative for osteoblastic metastatic disease. Nothing is seen on CT scan. 05/16/17 calcium is up to 8.4. Vitamin D pending HYPOCALCEMIA WITH HIGH PTH Other disorders that cause hypocalcemia are associated with a high parathyroid hormone (PTH). In these cases, PTH is increased in response to low serum calcium concentrations, in an attempt to mobilize calcium from kidney and bone and to increase 1,25-dihydroxyvitamin D production. Chronic hypocalcemia occurs when these actions are inadequate to restore the serum calcium to normal. Vitamin D deficiency or resistance Decreased production or action of vitamin D may cause hypocalcemia with a high PTH. Causes of vitamin D deficiency include poor intake or malabsorption coupled with reduced exposure to ultraviolet light, decreased 25-hydroxylation of vitamin D to form calcidiol (25 -hydroxyvitamin D) in the liver, increased metabolism to inactive metabolites, decreased 1-hydroxylation of calcidiol to calcitriol (1,25-dihydroxyvitamin D) in the kidney, and decreased calcitriol action. (See "Causes of vitamin D deficiency and resistance".) Chronic kidney disease The most common cause of an acquired decrease in renal production of 1,25-dihydroxyvitamin D is chronic kidney disease (CKD). In contrast to other forms of hypocalcemia associated with vitamin D deficiency, hypocalcemia in CKD is also due to the occurrence of hyperphosphatemia (due to reduction in the filtered phosphate load and a reduction in the fractional excretion of phosphorus) [11]. Hypocalcemia typically does not occur until end- stage CKD (G5, estimated glomerular filtration rate [eGFR] <15 mL/min or treatment by dialysis). (See 'Hyperphosphatemia' below and "Management of secondary hyperparathyroidism in dialysis patients".) PTH resistance (impaired PTH action) Pseudohypoparathyroidism, which presents in childhood, refers to a group of heterogeneous disorders defined by target organ (kidney and bone) unresponsiveness to PTH due to an alteration in the postreceptor PTH signaling pathway. It is characterized by hypocalcemia, hyperphosphatemia, and, in contrast to hypoparathyroidism, elevated rather than reduced PTH concentrations. This disorder is discussed elsewhere. (See " Etiology of hypocalcemia in infants and children", section on 'End-organ resistance to PTH (pseudohypoparathyroidism)'.) PTH resistance has also been associated with a recessive missense mutation in the mature PTH(1-84) sequence, resulting in resistance to PTH because of reduced PTH-receptor binding [12]. It is characterized by hypocalcemia and hyperphosphatemia and, depending on the assay used to measure PTH, either elevated or low-normal concentrations of circulating PTH. Extravascular deposition Ionized calcium can be lost from the extracellular fluid either by deposition in tissues or by binding within the vascular space. Hyperphosphatemia In patients with impaired renal excretion or in acute renal failure, increased phosphate intake (overzealous oral administration or phosphate enemas) or excess tissue breakdown (rhabdomyolysis, tumor lysis) can cause acute hypocalcemia. (See "Overview of the causes and treatment of hyperphosphatemia" and "Tumor lysis syndrome: Definition, pathogenesis, clinical manifestations, etiology and risk factors".) In hyperphosphatemia, calcium is deposited mostly in bone, but also in extraskeletal tissue. Chronic hyperphosphatemia is almost always due to reduced phosphate clearance in CKD where primary impairment of calcitriol synthesis in renal failure (leading to decreased intestinal calcium absorption) further aggravates the hypocalcemia. (See "Overview of chronic kidney disease-mineral and bone disorder (CKD-MBD)", section on 'Disorders of calcium balance' and "Overview of chronic kidney disease-mineral and bone disorder (CKD-MBD)", section on 'Abnormalities of parathyroid hormone, calcium, phosphorus, fibroblast growth factor 23, and vitamin D metabolism'.) Osteoblastic metastases Occasional patients with widespread osteoblastic metastases, particularly those with breast or prostate cancer, have hypocalcemia. The presumed cause is deposition of calcium in the newly formed bone around the tumor [13,14]. In a study of 131 men with advanced prostate cancer, 34 percent had elevated serum PTH concentrations, and of these, 56 percent had a low serum ionized calcium [14]. Hypocalcemia and secondary hyperparathyroidism was most common in those with progressive disease and bone metastases. Acute pancreatitis Hypocalcemia is also a frequent finding in patients with acute pancreatitis, where it is associated with precipitation of calcium soaps in the abdominal cavity [15]. The actual mechanism remains unclear. Although PTH concentrations are variable, they are typically elevated in response to hypocalcemia [16]. Sepsis or severe illness The incidence of hypocalcemia in critically ill or postsurgical patients approaches 80 to 90 percent [17]. Sepsis and severe barrios can also be associated with clinically important hypocalcemia. The cause appears to be a combination of impaired secretion of PTH coupled with reduced calcitriol production [18,19] and end-organ resistance to the action of PTH; the probable underlying mechanisms include hypomagnesemia and actions of inflammatory cytokines on the parathyroid glands, kidneys, and bone. Hypocalcemia is common in the toxic shock syndrome [20]. In addition to the above mechanisms, high serum calcitonin concentrations (which inhibit bone resorption) have been found in some patients. 4. Positive GILES and DS DNA, Histone and centromere. This could easily be causing the thrombocytopenia. Treatment would be the sign Recommendations. Follow counts. Await Path. Should have arrived at [facility] today. Continue current care with close monitoring of blood counts. Solu-Medrol 1000 mg daily IVIG 400 mg/kg daily for 4-5 days. - Time Spent With Patient Total time spent is greater than 50% in coordination of care (as documented) at patient's floor/unit and/or counseling patient: 25 - 35 minutes
[2017-05-16] MEDS: TRAZODONE 100 MG TABLET PO SCH (22:16)
[2017-05-16] MEDS: CYCLOBENZAPRINE 10 MG TABLET PO SCH (22:17)
[2017-05-16] MEDS: HYDROCODONE/APAP 7.5 MG/325 MG TABLET PO PRN (22:17)
[2017-05-17] MEDS: OMEPRAZOLE 20 MG CAPSULE PO SCH (06:22)
[2017-05-17] MEDS: INSULIN REGULAR, HUMAN 100 UNIT/ML INJECTION SQ PRN ×4 (06:22→21:14)
[2017-05-17] MEDS: CLOTRIMAZOLE 10 MG TROCHE MM SCH ×5 (08:11→21:17)
[2017-05-17] MEDS: GABAPENTIN 600 MG TABLET PO SCH ×3 (08:11→21:15)
[2017-05-17] MEDS: TORSEMIDE 20 MG TABLET PO SCH (08:11)
[2017-05-17] MEDS: DULOXETINE 60 MG CAPSULE PO SCH (08:12)
[2017-05-17] MEDS: SENNA + DOCUSATE TABLET PO SCH ×2 (08:12→21:16)
[2017-05-17] MEDS: HYDROCODONE/APAP 7.5 MG/325 MG TABLET PO PRN ×2 (08:12→21:16)
[2017-05-17] MEDS: CALCIUM 600 + VIT D 400 TABLET PO SCH ×3 (08:12→21:17)
[2017-05-17] MEDS: ALLOPURINOL 100 MG TABLET PO SCH (08:12)
[2017-05-17] MEDS: ATENOLOL 25 MG TABLET PO SCH (08:12)
[2017-05-17] MEDS: POLYETHYL GLYCOL 3350 17gm PACKET PO SCH (08:30)
[2017-05-17] MEDS: MethylPREDNISolone SOD SUCC 1,000 MG in NS 250ml 250 ML IV SCH (08:38)
--- NOTE | 2017-05-17 13:17 | Progress Note ---
Oncology Subjective Sitting the chair with no specific complaints. She denies bleeding. Output yesterday up to 39,000. Exam Vital signs: Temperature 96.1 F L 05/17/17 09:54 Pulse Rate 73 05/17/17 09:57 Respiratory Rate 16 05/17/17 09:57 Blood Pressure 144/81 H 05/17/17 09:57 Pulse Oximetry 95 05/17/17 09:57 - Constitutional no acute distress, average body habitus - Routine Neck Exam Comments: Surgical incision in the right side of the neck from recent lymph node biopsy, scar with no signs of infection or bleeding.. - Routine Respiratory Exam Absent: rales, respiratory distress, rhonchi, stridor - Routine Cardiovascular Exam Present: RRR - Routine Abdominal Exam Present: soft, normoactive bowel sounds. Absent: tenderness Oncology Results - Labs CBC & Chem 7: 05/17/17 04:54 05/17/17 04:54 Labs: Short CBC 05/17/17 Range/Units 04:54 WBC 6.4 D (4.5-11.0) T/MM3 Hgb 8.2 L (12-16) GM/DL Hct 27.5 L (36-46) % Plt Count 39 L D (130-400) T/MM3 BMP 05/17/17 04:54 Sodium 142 Potassium 3.5 L Chloride 103 Carbon Dioxide 30 BUN 29.0 H Creatinine 0.8 Glucose 197 H Calcium 8.9 Liver Function 05/17/17 Range/Units 04:54 Total Bilirubin 0.40 (0.20-1.30) MG/DL AST 42 H (14-36) U/L ALT 39 (9-52) U/L Alkaline Phosphatase 50 (38-126) U/L Albumin 3.1 L (3.5-5.0) G/DL Assessment and Plan Assessment and Plan: Assessment and plan 1. ITP on a second course of IVIG and high-dose dexamethasone with good tolerance. Platelets up to 39,000. We'll continue with IVIG and Solu Medrol with monitoring of blood counts. 2. 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 The pathology is pending, sent to [facility] for consultation. Follow-up on the pathology report whole fluid be back by Friday or Friday. 3. Hypocalcemia, resolved. - Time Spent With Patient Total time spent is greater than 50% in coordination of care (as documented) at patient's floor/unit and/or counseling patient: less than 15 minutes
[2017-05-17] MEDS ORDERED: DiphenhydrAMINE 50 MG/ML INJECTION IVP ONE (14:15)
[2017-05-17] MEDS: RTU SALINE IV SCH (14:19)
[2017-05-17] MEDS: IVIG PRIVIGEN IV SCH (14:19)
--- NOTE | 2017-05-17 14:49 | Progress Note ---
- Date 05/17/17 Subjective: 66 y/o female who lives in [place], [place]. Her PCP is Dr. True Casiano. Patient has been ill since April 20 and has had multiple visits to the primary care provider's office. Initially she was diagnosed with influenza A on 04/22. She completed a round of Tamiflu, however, symptoms did not improve. She returned to primary care provider's office on April 30 for reevaluation, at which time she was then started on Augmentin twice a day for 10 days as well as an albuterol MDI inhaler for wheezing. Again, symptoms did not improve. On May 05, 2017 she began having right cervical adenopathy as well as right mastoid pain. Today she returned back to primary care provider's office for reevaluation given persistent symptoms and worsening pain. Further workup was performed at the clinic including a chest x-ray that was negative. Laboratory studies were obtained as follows- WBC count 7.2, hemoglobin 12.7, hematocrit 39.1, platelet count 23, 67% segs, 4% bands. INR is 3.43. Sodium is 135, potassium 3.2, BUN 19, creatinine 1.2, glucose 201, CRP 12.5, troponin negative , TSH 2.32, strep throat culture was negative. Blood cultures were obtained. Urinalysis was negative. She was given IV fluids as well as 2 gram of IV Rocephin at the clinic. She continued to be tachycardic. Given the new findings of thrombocytopenia, persistent tachycardia and concern for dehydration, [facility] hospitalist services were contacted and accepted patient for direct admission under the care of Dr. Haley for further evaluation and treatment. Given her oncologist is Dr. Brody. Since admission she has had declining platelets. 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 She is back on IVIG as well as high-dose steroids. Her platelets are back up a little today from 26,000 to 39,000. She has underwent a lymph node biopsy which is suspicious for transformation of her non-Hodgkin's lymphoma to another lymphoma. The pathology was sent to [facility] and results should be back Friday or Friday. Currently she continues to be fairly comfortable. She denies any significant shortness of breath, cough or sputum production. She denies a fever or chills. She uses a CPAP at night. She denies any chest pain or palpitations. She denies any nausea, vomiting, abdominal pain, diarrhea or constipation. Her lower extremity edema seems to be improving. Objective Vital signs: Temperature 96.1 F L 05/17/17 09:54 Pulse Rate 73 05/17/17 09:57 Respiratory Rate 16 05/17/17 09:57 Blood Pressure 144/81 H 05/17/17 09:57 Pulse Oximetry 95 05/17/17 09:57 Height/Weight/BMI: Height 1.55 m Weight 109.1 kg Body Mass Index 44.9 Comments: Gen: alert and oriented. NAD. Pleasant and conversive Skin: warm and dry. HEENT: NC/AT PERRL, EOMI, Sclera,lids and conjunctiva wnl. MMM. OP clear. Neck: supple. No JVD. Carotids 2+ without bruits, she does have mild swelling and ecchymosis at the lymph node biopsy site. She states this is improved. Lungs: clear. No rales, rhonchi or wheezes CV: regular rate and rhythm. No murmur, rub or gallop trace edema on the right. Pedal pulses are good Abd: soft. +BS. NT/ND MS: Good strength and ROM. Neuro: no focal deficit. Results - Labs CBC & Chem 7: 05/17/17 04:54 05/17/17 04:54 Microbiology Results: Microbiology 05/13/17 13:32 Lymph Node Acid Fast Bacilli Culture & Smear - Preliminary 05/13/17 13:32 Lymph Node Fungal Culture - Preliminary Assessment and Plan (1) Dehydration Current visit: Yes Status: Acute (2) Thrombocytopenia Current visit: Yes Status: Acute Assessment and Plan: Impression/Plan: 1. Dehydration-POA with FeNa 0.29% -associated Tachycardia-POA -She appears euvolemic if not vol overloaded at present-She is on Demadex 100mg daily -continues to appear euvolemic 2. Thrombocytopenia-POA -ITP vs Lupus immune destruction -IVIG per Dr. Brody -1 g Solu Medrol per Dr. Brody -Plts up to 39,000 3. Lymphadenopathy, extensive -LN biopsy obtain from right neck, sent to [place] 4. Progressive anemia -+YOLA, no hemolysis (haptoglobin nl) -Retic elevated -Dr. Brody ordered one PRBC transfused 05/11/17 -relatively stable since 6. Type II diabetes -On metformin at home. -Postprandial hyperglycemia on sliding scale insulin 7. Peripheral neuropathy -On gabapentin 8. Psoriatic arthritis 9. GERD -PPI 10. Pulmonary emboli with chronic anticoagulation -OAC on hold 11. Supratherapeutic INR -Normalized and no longer receiving Coumadin. 12. Fibromyalgia -Pain control 13. Chronic back pain -Pain control 14. Obstructive sleep apnea -CPAP at night 15. Hyperlipidemia -On crestor 20mg at home-holding here 16. HTN -Atenolol 25mg daily -blood pressures marginally controlled. She may need additional medications. 17. Elevated PTH and hypocalcemia -Vit D labs still pending 18. Prophylaxis -PPI -SCDs and ambulation DVT Prophylaxis: SCD's GI Prophylaxis: other (Omeprazole) Resuscitation Status: Full Code - Time spent with patient Time with patient PN: 15 minutes - Physician Narrative Physician: Rekha Roland MD Narrative: Date: 05/17/17 Time: 1445 Hospital Course Summary Disclaimer: The visit summary below is not to be considered part of the above Progress Note. Hospital Course: 05/07/17 Impression Dehydration Tachycardia-present on admission Thrombocytopenia-present on admission Lymphadenopathy with right mastoid tenderness Type II diabetes Peripheral neuropathy Psoriatic arthritis GERD Pulmonary emboli with chronic anticoagulation Fibromyalgia Chronic back pain Obstructive sleep apnea Plan Admit patient, observation under the care of Dr. Haley for dehydration with tachycardia and thrombocytopenia. Did review outpatient labs from this morning done at [facility] this morning. Boiler Room Helper was 1.2. Will obtain CT scan of soft tissue neck to further evaluate lymphadenopathy as well as right-sided mastoid tenderness. Place patient on cardiac telemetry to monitor given evidence tachycardia. Twelve -lead EKG is obtained during examination does reveal sinus tach, rate of 135. Will order PRN Lopressor 5 mg IV every 6 hrs PRN sustained tachycardia greater than 120. Obtain orthostatic vital signs BID Monitor accuchecks given DM Consultation with Dr Brody for further immunology evaluation and recommendation. Concern thrombocytopenia with lymphadenopathy Obtain Urine Boiler Room Helper and urine sodium given hyponatremia Consult to pharmacy for Coumadin dosing management SCD to bilateral lower ext Home medications will need to be reviewed once reconciled Patient does wish to be a full code and this order is written Recheck CBC and BMP tomorrow morning to follow blood counts, renal function and electrolytes. Will discuss further orders and plan of care with today, Dr. Haley. At time of discharge medical care will return to primary care provider's in [place], [place], Dr True Casiano 05/08/17 Worsening thrombocytopenia, extensive adenopathy on CT imaging of chest/abdomen/ pelvis. No response to initial platelet pack-likely autoimmune destruction. Additional platelet is being given due to bleeding bone marrow biopsy site. High-dose steroids initiated in conjunction with FFP per Dr. Brody. Bone marrow obtained-results pending. 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 Tachycardia improving with fluid administration-continue. Fevers controlled with frequent doses acetaminophen/[place]. Continue ceftriaxone for sepsis-will contact Dr. Casiano in [place] tomorrow regarding culture results. Warfarin on hold due to thrombocytopenia/bleeding. SCDs for DVT prophylaxis. 05/09/16- IVIG infusion started by Dr Brody. Continued severe thrombocytopenia. Patient having some bleeding in the gums, nose, and petechiae rash to extremities noted today. Resume Demadex/decrease IV fluids-still receiving significant volume with other IV products. 05/10/17: Currently euvolemic. Continued IVIG and Solu-Medrol per Dr. Brody. Platelets 20K. 05/11/17: PRBC transfusion (hgb decreased from 10.2 -->7.8). Platelets improved to 47 and lymph nodes were decreasing in size. 05/12/17: Thrush diagnosed and Mycelex was started. Platelets up to 77. On Lovenox for PPX. Mild hypokalemia (3.3) and KDur was given. 05/13/17: Node biopsy performed today. Resumed home dose of potassium 10 mEq 3 times a day. 40 mEq potassium 1 given today as well. (Potassium 3.1 today). Platelets up to 94. 05/14/17: Patient doing well. Labs stable today-Hemoglobin 8.8, potassium 3.7, platelets 88,000. Elevated PTH and hypocalcemia - Vit D studies ordered. Lovenox was ordered for VTE prophylaxis. Blood cultures from outside facility were negative at 5 days. 05/15/17: Platelets decreased to 50; Lovenox was discontinued. K 3.3. Biopsy results pending. Hgb 8.3. 05/16/17: Platelets down to [address] Brody restarted IV steroids and IVIG. Hgb 8.6. K 4.1.
[2017-05-17] MEDS: TRAZODONE 100 MG TABLET PO SCH (21:16)
[2017-05-17] MEDS: CYCLOBENZAPRINE 10 MG TABLET PO SCH (21:17)
[2017-05-18] MEDS: OMEPRAZOLE 20 MG CAPSULE PO SCH (06:12)
[2017-05-18] MEDS: TORSEMIDE 20 MG TABLET PO SCH (08:17)
[2017-05-18] MEDS: CALCIUM 600 + VIT D 400 TABLET PO SCH ×3 (08:17→20:58)
[2017-05-18] MEDS: CLOTRIMAZOLE 10 MG TROCHE MM SCH ×5 (08:17→20:58)
[2017-05-18] MEDS: ALLOPURINOL 100 MG TABLET PO SCH (08:17)
[2017-05-18] MEDS: ATENOLOL 25 MG TABLET PO SCH (08:18)
[2017-05-18] MEDS: SENNA + DOCUSATE TABLET PO SCH ×2 (08:18→20:59)
[2017-05-18] MEDS: DULOXETINE 60 MG CAPSULE PO SCH (08:18)
[2017-05-18] MEDS: MethylPREDNISolone SOD SUCC 1,000 MG in NS 250ml 250 ML IV SCH (08:18)
[2017-05-18] MEDS: GABAPENTIN 600 MG TABLET PO SCH ×3 (08:18→20:59)
[2017-05-18] MEDS: POLYETHYL GLYCOL 3350 17gm PACKET PO SCH (08:18)
[2017-05-18] MEDS: SALINE FLUSH 10ml SYRINGE IV PRN ×2 (08:19→21:00)
[2017-05-18] MEDS: INSULIN REGULAR, HUMAN 100 UNIT/ML INJECTION SQ PRN ×3 (10:15→20:58)
[2017-05-18] MEDS: HYDROCODONE/APAP 7.5 MG/325 MG TABLET PO PRN ×2 (11:28→20:59)
[2017-05-18] MEDS: IVIG PRIVIGEN IV SCH (14:51)
[2017-05-18] MEDS: RTU SALINE IV SCH (14:51)
--- NOTE | 2017-05-18 15:42 | Progress Note ---
- Date 05/18/17 Subjective: 66 y/o female who lives in [place], [place]. Her PCP is Dr. True Casiano. Patient has been ill since April 20 and has had multiple visits to the primary care provider's office. Initially she was diagnosed with influenza A on 04/22. She completed a round of Tamiflu, however, symptoms did not improve. She returned to primary care provider's office on April 30 for reevaluation, at which time she was then started on Augmentin twice a day for 10 days as well as an albuterol MDI inhaler for wheezing. Again, symptoms did not improve. On May 05, 2017 she began having right cervical adenopathy as well as right mastoid pain. Today she returned back to primary care provider's office for reevaluation given persistent symptoms and worsening pain. Further workup was performed at the clinic including a chest x-ray that was negative. Laboratory studies were obtained as follows- WBC count 7.2, hemoglobin 12.7, hematocrit 39.1, platelet count 23, 67% segs, 4% bands. INR is 3.43. Sodium is 135, potassium 3.2, BUN 19, creatinine 1.2, glucose 201, CRP 12.5, troponin negative , TSH 2.32, strep throat culture was negative. Blood cultures were obtained. Urinalysis was negative. She was given IV fluids as well as 2 gram of IV Rocephin at the clinic. She continued to be tachycardic. Given the new findings of thrombocytopenia, persistent tachycardia and concern for dehydration, [facility] hospitalist services were contacted and accepted patient for direct admission under the care of Dr. Haley for further evaluation and treatment. Given her oncologist is Dr. Brody. Since admission she has had declining platelets. 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 She is back on IVIG as well as high-dose steroids. She has underwent a lymph node biopsy which is suspicious for transformation of her non-Hodgkin's lymphoma to another lymphoma. The pathology was sent to [facility] and results should be back Friday or Friday. Today she feels a bit blah. There are no specific complaints. She denies any significant shortness of breath, cough or sputum production. She denies a fever or chills. She uses a CPAP at night. She denies any chest pain or palpitations. She denies any nausea, vomiting, abdominal pain, diarrhea or constipation. Her lower extremity edema continues to improve. She does state that her left neck appears a little more swollen today and I agree. Her right neck seems to be about the same. Objective Vital signs: Temperature 97.3 F 05/18/17 11:20 Pulse Rate 61 05/18/17 11:20 Respiratory Rate 16 05/18/17 11:20 Blood Pressure 149/78 H 05/18/17 11:20 Pulse Oximetry 95 05/18/17 11:20 Height/Weight/BMI: Height 1.55 m Weight 108 kg Body Mass Index 44.9 Comments: Gen: alert and oriented. NAD. Pleasant and conversive Skin: warm and dry. HEENT: NC/AT PERRL, EOMI, Sclera,lids and conjunctiva wnl. MMM. OP clear. Neck: supple. No JVD. Carotids 2+ without bruits, she does have mild swelling and ecchymosis at the lymph node biopsy site and mild swelling on the left neck. Lungs: clear. No rales, rhonchi or wheezes CV: regular rate and rhythm. No murmur, rub or gallop trace edema mostly in the feet. Pedal pulses are good Abd: soft. +BS. NT/ND MS: Good strength and ROM. Neuro: no focal deficit. Results - Labs CBC & Chem 7: 05/18/17 04:17 05/18/17 04:17 Microbiology Results: Microbiology 05/13/17 13:32 Lymph Node Acid Fast Bacilli Culture & Smear - Preliminary 05/13/17 13:32 Lymph Node Fungal Culture - Preliminary Assessment and Plan (1) Dehydration Current visit: Yes Status: Acute (2) Thrombocytopenia Current visit: Yes Status: Acute Assessment and Plan: Impression/Plan: 1. Dehydration-POA with FeNa 0.29% -associated Tachycardia-POA -She appears euvolemic if not vol overloaded at present-She is on Demadex 100mg daily -continues to appear euvolemic 2. Thrombocytopenia-POA -ITP vs Lupus immune destruction -IVIG per Dr. Brody -1 g Solu Medrol per Dr. Brody -Plts up to 53,000 today 3. Lymphadenopathy, extensive -LN biopsy obtain from right neck, sent to [place] 4. Progressive anemia -+YOLA, no hemolysis (haptoglobin nl) -Retic elevated -Dr. Brody ordered one PRBC transfused 05/11/17 -relatively stable since 6. Type II diabetes -On metformin at home. -Postprandial hyperglycemia on sliding scale insulin 7. Peripheral neuropathy -On gabapentin 8. Psoriatic arthritis 9. GERD -PPI 10. Pulmonary emboli with chronic anticoagulation -OAC on hold 11. Supratherapeutic INR -Normalized and no longer receiving Coumadin. 12. Fibromyalgia -Pain control 13. Chronic back pain -Pain control 14. Obstructive sleep apnea -CPAP at night 15. Hyperlipidemia -On crestor 20mg at home-holding here 16. HTN -Atenolol 25mg daily -blood pressures are getting too high, will add Norvasc 5 mg daily 17. Elevated PTH and hypocalcemia -Vit D labs still pending 18. Prophylaxis -PPI -SCDs and ambulation - Physician Narrative Narrative: Date: 05/18/17 Time: 1539 Hospital Course Summary Disclaimer: The visit summary below is not to be considered part of the above Progress Note. Hospital Course: 05/07/17 Impression Dehydration Tachycardia-present on admission Thrombocytopenia-present on admission Lymphadenopathy with right mastoid tenderness Type II diabetes Peripheral neuropathy Psoriatic arthritis GERD Pulmonary emboli with chronic anticoagulation Fibromyalgia Chronic back pain Obstructive sleep apnea Plan Admit patient, observation under the care of Dr. Haley for dehydration with tachycardia and thrombocytopenia. Did review outpatient labs from this morning done at [facility] this morning. Compound Mixer was 1.2. Will obtain CT scan of soft tissue neck to further evaluate lymphadenopathy as well as right-sided mastoid tenderness. Place patient on cardiac telemetry to monitor given evidence tachycardia. Twelve -lead EKG is obtained during examination does reveal sinus tach, rate of 135. Will order PRN Lopressor 5 mg IV every 6 hrs PRN sustained tachycardia greater than 120. Obtain orthostatic vital signs BID Monitor accuchecks given DM Consultation with Dr Brody for further immunology evaluation and recommendation. Concern thrombocytopenia with lymphadenopathy Obtain Urine Compound Mixer and urine sodium given hyponatremia Consult to pharmacy for Coumadin dosing management SCD to bilateral lower ext Home medications will need to be reviewed once reconciled Patient does wish to be a full code and this order is written Recheck CBC and BMP tomorrow morning to follow blood counts, renal function and electrolytes. Will discuss further orders and plan of care with today, Dr. Haley. At time of discharge medical care will return to primary care provider's in [place], [place], Dr True Casiano 05/08/17 Worsening thrombocytopenia, extensive adenopathy on CT imaging of chest/abdomen/ pelvis. No response to initial platelet pack-likely autoimmune destruction. Additional platelet is being given due to bleeding bone marrow biopsy site. High-dose steroids initiated in conjunction with FFP per Dr. Brody. Bone marrow obtained-results pending. 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 Tachycardia improving with fluid administration-continue. Fevers controlled with frequent doses acetaminophen/Nemacolin. Continue ceftriaxone for sepsis-will contact Dr. Casiano in [place] tomorrow regarding culture results. Warfarin on hold due to thrombocytopenia/bleeding. SCDs for DVT prophylaxis. 05/09/16- IVIG infusion started by Dr Brody. Continued severe thrombocytopenia. Patient having some bleeding in the gums, nose, and petechiae rash to extremities noted today. Resume Demadex/decrease IV fluids-still receiving significant volume with other IV products. 05/10/17: Currently euvolemic. Continued IVIG and Solu-Medrol per Dr. Brody. Platelets 20K. 05/11/17: PRBC transfusion (hgb decreased from 10.2 -->7.8). Platelets improved to 47 and lymph nodes were decreasing in size. 05/12/17: Thrush diagnosed and Mycelex was started. Platelets up to 77. On Lovenox for PPX. Mild hypokalemia (3.3) and KDur was given. 05/13/17: Node biopsy performed today. Resumed home dose of potassium 10 mEq 3 times a day. 40 mEq potassium 1 given today as well. (Potassium 3.1 today). Platelets up to 94. 05/14/17: Patient doing well. Labs stable today-Hemoglobin 8.8, potassium 3.7, platelets 88,000. Elevated PTH and hypocalcemia - Vit D studies ordered. Lovenox was ordered for VTE prophylaxis. Blood cultures from outside facility were negative at 5 days. 05/15/17: Platelets decreased to 50; Lovenox was discontinued. K 3.3. Biopsy results pending. Hgb 8.3. 05/16/17: Platelets down to [address] Brody restarted IV steroids and IVIG. Hgb 8.6. K 4.1.
[2017-05-18] MEDS: AMLODIPINE 5 MG TABLET PO SCH (17:41)
--- NOTE | 2017-05-18 19:19 | Progress Note ---
Oncology Subjective The patient remains stable. She has no specific complaints. Platelets are up to 53,000. No bleeding. No fever. Pathology still pending. Exam Vital signs: Temperature 97.9 F 05/18/17 16:00 Pulse Rate 63 05/18/17 16:00 Respiratory Rate 16 05/18/17 16:00 Blood Pressure 149/83 H 05/18/17 16:00 Pulse Oximetry 95 05/18/17 16:00 - Constitutional no acute distress - Routine Neck Exam Comments: Left-sided cervical lymph node biopsy scar, no bleeding. No signs of infection. - Routine Respiratory Exam Present: accessory muscle use. Absent: rales, rhonchi, wheezes, crackles - Routine Cardiovascular Exam Present: RRR - Routine Extremities Exam Present: no edema Oncology Results - Labs CBC & Chem 7: 05/18/17 04:17 05/18/17 04:17 Labs: Short CBC 05/18/17 Range/Units 04:17 WBC 6.2 (4.5-11.0) T/MM3 Hgb 8.2 L (12-16) GM/DL Hct 27.7 L (36-46) % Plt Count 53 L D (130-400) T/MM3 BMP 05/18/17 04:17 Sodium 143 Potassium 3.3 L Chloride 102 Carbon Dioxide 32 H BUN 31.0 H Creatinine 0.9 Glucose 155 H Calcium 9.2 Assessment and Plan Assessment and Plan: Assessment and plan 1. ITP on a second course of IVIG and high-dose dexamethasone with good tolerance. Day #3, platelets up to 53,000. We'll continue with IVIG and Solu Medrol with monitoring of blood counts. 2. 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 The pathology is still pending, sent to [facility] for consultation. Follow-up on the pathology report whole fluid be back by Friday or Friday. Patient will be seen by Dr. Brody in the morning 3. Hypocalcemia, resolved. - Time Spent With Patient Total time spent is greater than 50% in coordination of care (as documented) at patient's floor/unit and/or counseling patient: less than 15 minutes
[2017-05-18] MEDS: CYCLOBENZAPRINE 10 MG TABLET PO SCH (21:00)
[2017-05-18] MEDS: TRAZODONE 100 MG TABLET PO SCH (21:00)
[2017-05-19] MEDS: OMEPRAZOLE 20 MG CAPSULE PO SCH (05:55)
[2017-05-19] MEDS: TORSEMIDE 20 MG TABLET PO SCH (08:19)
[2017-05-19] MEDS: SENNA + DOCUSATE TABLET PO SCH ×2 (08:19→21:17)
[2017-05-19] MEDS: CALCIUM 600 + VIT D 400 TABLET PO SCH ×3 (08:20→21:16)
[2017-05-19] MEDS: DULOXETINE 60 MG CAPSULE PO SCH (08:20)
[2017-05-19] MEDS: AMLODIPINE 5 MG TABLET PO SCH (08:20)
[2017-05-19] MEDS: GABAPENTIN 600 MG TABLET PO SCH ×3 (08:20→21:16)
[2017-05-19] MEDS: CLOTRIMAZOLE 10 MG TROCHE MM SCH ×3 (08:20→14:21)
[2017-05-19] MEDS: ATENOLOL 25 MG TABLET PO SCH (08:20)
[2017-05-19] MEDS: ALLOPURINOL 100 MG TABLET PO SCH (08:20)
[2017-05-19] MEDS: POLYETHYL GLYCOL 3350 17gm PACKET PO SCH (08:21)
[2017-05-19] MEDS: MethylPREDNISolone SOD SUCC 1,000 MG in NS 250ml 250 ML IV SCH (08:23)
[2017-05-19] MEDS: INSULIN REGULAR, HUMAN 100 UNIT/ML INJECTION SQ PRN (11:43)
[2017-05-19] MEDS: RTU SALINE IV SCH (13:14)
[2017-05-19] MEDS: IVIG PRIVIGEN IV SCH (13:14)
[2017-05-19] MEDS: DiphenhydrAMINE 50 MG/ML INJECTION IVP SCH (13:24)
[2017-05-19] MEDS ORDERED: INSULIN REGULAR, HUMAN 100 UNIT/ML INJECTION SQ ONE ×2 (14:27→20:57)
[2017-05-19] MEDS: HYDROCODONE/APAP 7.5 MG/325 MG TABLET PO PRN ×3 (14:30→21:21)
--- NOTE | 2017-05-19 14:36 | Progress Note ---
<Lu Christensen - Last Filed: 05/19/17 15:54> Oncology Subjective Alert and oriented. Sitting in chair. Denies pain currently. No fever, chills, night sweats. Denies bleeding. Eating and drinking normally. Denies diarrhea/ constipation. Normal voiding. General: No fever, no night sweats Eyes: No redness, no pain, no diplopia ENT: No mouth sores, no trouble swallowing. Neck swelling improved. Cardiac: No chest pain no palpitations Pulmonary: No cough, no shortness of breath, no wheezing Abdomen: No pain, no nausea vomiting, no diarrhea or constipation : No urgency, frequency, dysuria, or hematuria Musculoskeletal: No arthritis, no myalgias Neurological: No headaches, no focal weakness Skin: No rash, no sores Psychiatric: No anxiety, no depression Exam Vital signs: Temperature 96.8 F 05/19/17 08:00 Pulse Rate 68 05/19/17 11:53 Respiratory Rate 18 05/19/17 11:53 Blood Pressure 134/69 05/19/17 11:53 Pulse Oximetry 95 05/19/17 11:53 - Constitutional no acute distress, well developed, obese - Routine HEENT Exam Head: Present: normocephalic Eye: Present: EOMI. Absent: conjunctival icterus ENT: Present: mucous membranes moist - Routine Neck Exam Present: supple, lymphadenopathy (1 cm left posterior cervical LAD), swelling ( right lateral/anterior neck greatly improved/almost resolved. Incision w/o s/sx inflammation) - Routine Respiratory Exam Present: CTA bilaterally. Absent: wheezes, crackles - Routine Cardiovascular Exam Present: RRR. Absent: no murmur, gallop - Routine Abdominal Exam Present: soft, non tender. Absent: organomegaly, mass Comments: no organomegaly/mass but difficult to assess 2nd to body habitus - Routine Extremities Exam Present: edema (mild-trace/1+ loli. lower extremities to knees), full ROM - Routine Back/Spine/Pelvis Exam Back/Spine: Absent: vertebral tenderness - Routine Skin Exam Present: intact, dry. Absent: petechiae, rash - Routine Neurological Exam Present: alert, oriented X3, moving all extremities - Routine Psychiatric Exam Present: normal affect, normal thought process Oncology Results - Labs CBC & Chem 7: 05/19/17 04:01 05/19/17 04:01 Labs: Short CBC 05/19/17 Range/Units 04:01 WBC 6.4 (4.5-11.0) T/MM3 Hgb 8.0 L (12-16) GM/DL Hct 27.3 L (36-46) % Plt Count 60 L (130-400) T/MM3 BMP 05/19/17 04:01 Sodium 142 Potassium 3.4 L Chloride 100 Carbon Dioxide 32 H BUN 36.0 H Creatinine 0.9 Glucose 164 H Calcium 9.2 Assessment and Plan Assessment and Plan: Assessment and plan 1. ITP on a second course of IVIG and high-dose dexamethasone with good tolerance. Platelets up to 53,000 05/18/17 and improved today, 05/19/17 to 60, 000. Continue with IVIG and Solu Medrol with monitoring of blood counts. 2. 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 The pathology is still pending today, 05/19/17; sent to [facility] for consultation. 3. Hypocalcemia, resolved. Continue supportive care, IVIG/steroids as directed. Await pathology results. Follow counts. Encouraged to ambulate/be up as much as tolerates. - Time Spent With Patient Total time spent is greater than 50% in coordination of care (as documented) at patient's floor/unit and/or counseling patient: less than 15 minutes <Estrada Brody - Last Filed: 05/19/17 16:40> Exam Vital signs: Temperature 97.1 F 05/19/17 15:38 Pulse Rate 67 05/19/17 15:38 Respiratory Rate 16 05/19/17 15:38 Blood Pressure 132/69 05/19/17 15:38 Pulse Oximetry 94 05/19/17 15:38 Oncology Results - Labs CBC & Chem 7: 05/19/17 04:01 05/19/17 04:01 Labs: Short CBC 05/19/17 Range/Units 04:01 WBC 6.4 (4.5-11.0) T/MM3 Hgb 8.0 L (12-16) GM/DL Hct 27.3 L (36-46) % Plt Count 60 L (130-400) T/MM3 [facility] 05/19/17 04:01 Sodium 142 Potassium 3.4 L Chloride 100 Carbon Dioxide 32 H BUN 36.0 H Creatinine 0.9 Glucose 164 H Calcium 9.2 Assessment and Plan Assessment and Plan: ITP is slowly improving with high dose steroids and IVIG. Platelets today are 60 ,000 up from 53,000. She has had 4 days of 1 g of Solu-Medrol. We'll stop Solu- Medrol and changed to 60 mg daily of prednisone. Discussed biopsy with Dr. Harris. She has not heard from [facility]. Discussed with Dr. Barbour. We'll look at moving her IVIG earlier in the day so that she will not be able to go home tomorrow. We'll follow-up Friday in [place] if she goes home tomorrow. Vitamin D level was low at 11. Will start 50,000 units ergocalciferol weekly. This could easily explain the hypocalcemia and elevated PTH I participated in the development of the plan of care of this patient with Michelle Christensen. - Time Spent With Patient Total time spent is greater than 50% in coordination of care (as documented) at patient's floor/unit and/or counseling patient:
--- NOTE | 2017-05-19 15:11 | Progress Note ---
- Date 05/19/17 Subjective: Ava has no physical complaints, but would really like to go back home as soon as possible. The lymph node biopsy site to her neck hasn't been bothering her anymore. Her thrush has resolved. She denies any chest pain or shortness of breath. Her appetite has been stable and she denies any abdominal pain or GI complaints. Her one request would be to restart back on estrogen as soon as possible, which helps manage her emotions. Objective Vital signs: Temperature 96.8 F 05/19/17 08:00 Pulse Rate 68 05/19/17 11:53 Respiratory Rate 18 05/19/17 11:53 Blood Pressure 134/69 05/19/17 11:53 Pulse Oximetry 95 05/19/17 11:53 Height/Weight/BMI: Height 1.55 m Weight 106.7 kg Body Mass Index 44.9 - Constitutional Present: no acute distress, well nourished, well developed - Routine HEENT Exam Head: Present: normocephalic Eye: Absent: conjunctival icterus, scleral injection ENT: Present: mucous membranes moist, oropharynx clear Comments: biopsy site to right anterior neck with decreased swelling and ecchymosis - Routine Respiratory Exam Present: CTA bilaterally - Routine Cardiovascular Exam Present: RRR, S1, S2 - Routine Abdominal Exam Present: soft, normoactive bowel sounds, non distended, non tender - Routine Extremities Exam Present: edema (trace BLE) - Routine Skin Exam Present: dry, warm, ecchymosis (arms - improving) - Routine Neurological Exam Present: alert, oriented X3, normal speech - Routine Psychiatric Exam Present: normal affect, normal thought process, cooperative Results - Labs CBC & Chem 7: 05/19/17 04:01 05/19/17 04:01 Microbiology Results: Microbiology 05/13/17 13:32 Lymph Node Acid Fast Bacilli Culture & Smear - Preliminary 05/13/17 13:32 Lymph Node Fungal Culture - Preliminary Assessment and Plan (1) Dehydration Current visit: Yes Status: Acute (2) Thrombocytopenia Current visit: Yes Status: Acute Assessment and Plan: Impression Dehydration-POA with FeNa 0.29% and associated tachycardia -- resolved Thrombocytopenia-POA 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 Brody - last doses are scheduled on with steroids starting at 9 am and IVIG starting at 2 PM (takes 4-5 hours to infuse) -Plts up to 60,000 today Lymphadenopathy, extensive - LN biopsy obtain from right neck, sent to [facility]. Still waiting on results. Hypokalemia, 3.4 - KDur increased to TID Progressive anemia -+YOLA, no hemolysis (haptoglobin nl), Retic elevated -PRBC transfused 05/11/17 Type II diabetes with hyperglycemia secondary to steroids -On metformin at home. -Postprandial hyperglycemia on sliding scale insulin HTN - Atenolol 25mg daily & added Norvasc 5 mg daily Elevated PTH and hypocalcemia -25-OH Vitamin D level was low at 11 -Vit D 1,25 still pending Thrush resolved. DC Mycelex. DVT Prophylaxis: SCD's GI Prophylaxis: other (Prilosec) Resuscitation Status: Full Code - Physician Narrative Physician: Isabella Haley MD Narrative: Date: 05/19/17 Time: 1830 I have independently evaluated and examined this patient. I reviewed the chart, the patient's history, and the BULB SORTER/PA's documented findings as above. We discussed and formulated the assessment and plan as above with additions as below: Mrs. Antony expressed concern about high blood sugars noting that she is on a regular diet institute of a carb controlled in conjunction with high-dose steroids. She asked to have Mycelex discontinued. She is anxious to discharge home and reports no ongoing bruising. Faint bruise present under the left eye and residual hematoma/ecchymosis over the left scapula. Oropharynx is clear Respirations nonlabored, good airflow, breath sounds clear Regular cardiac rhythm Plans discussed with Dr. Brody-converted to prednisone 60 mg starting in the morning and methylprednisolone discontinued. This will permit earlier administration of IVIG and probable discharge home tomorrow. Mycelex discontinued. Metformin resumed, that in conjunction with reduction in steroid dose will hopefully result in significant improvement in blood sugars over the next 24-48 hours. 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 Resume estrogen per patient request. Final pathology from [facility] pending Hospital Course Summary Disclaimer: The visit summary below is not to be considered part of the above Progress Note. Hospital Course: 05/07/17 Impression Dehydration Tachycardia-present on admission Thrombocytopenia-present on admission Lymphadenopathy with right mastoid tenderness Type II diabetes Peripheral neuropathy Psoriatic arthritis GERD Pulmonary emboli with chronic anticoagulation Fibromyalgia Chronic back pain Obstructive sleep apnea Plan Admit patient, observation under the care of Dr. Haley for dehydration with tachycardia and thrombocytopenia. Did review outpatient labs from this morning done at [facility] this morning. Chief Clinical Officer was 1.2. Will obtain CT scan of soft tissue neck to further evaluate lymphadenopathy as well as right-sided mastoid tenderness. Place patient on cardiac telemetry to monitor given evidence tachycardia. Twelve -lead EKG is obtained during examination does reveal sinus tach, rate of 135. Will order PRN Lopressor 5 mg IV every 6 hrs PRN sustained tachycardia greater than 120. Obtain orthostatic vital signs BID Monitor accuchecks given DM Consultation with Dr Brody for further immunology evaluation and recommendation. Concern thrombocytopenia with lymphadenopathy Obtain Urine Chief Clinical Officer and urine sodium given hyponatremia Consult to pharmacy for Coumadin dosing management SCD to bilateral lower ext Home medications will need to be reviewed once reconciled Patient does wish to be a full code and this order is written Recheck CBC and BMP tomorrow morning to follow blood counts, renal function and electrolytes. Will discuss further orders and plan of care with today, Dr. Haley. At time of discharge medical care will return to primary care provider's in [place], [place], Dr True Casiano 05/08/17 Worsening thrombocytopenia, extensive adenopathy on CT imaging of chest/abdomen/ pelvis. No response to initial platelet pack-likely autoimmune destruction. Additional platelet is being given due to bleeding bone marrow biopsy site. High-dose steroids initiated in conjunction with FFP per Dr. Brody. Bone marrow obtained-results pending. 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 Tachycardia improving with fluid administration-continue. Fevers controlled with frequent doses acetaminophen/[place]. Continue ceftriaxone for sepsis-will contact Dr. Casiano in [place] tomorrow regarding culture results. Warfarin on hold due to thrombocytopenia/bleeding. SCDs for DVT prophylaxis. 05/09/16- IVIG infusion started by Dr Brody. Continued severe thrombocytopenia. Patient having some bleeding in the gums, nose, and petechiae rash to extremities noted today. Resume Demadex/decrease IV fluids-still receiving significant volume with other IV products. 05/10/17: Currently euvolemic. Continued IVIG and Solu-Medrol per Dr. Brody. Platelets 20K. 05/11/17: PRBC transfusion (hgb decreased from 10.2 -->7.8). Platelets improved to 47 and lymph nodes were decreasing in size. 05/12/17: Thrush diagnosed and Mycelex was started. Platelets up to 77. On Lovenox for PPX. Mild hypokalemia (3.3) and KDur was given. 05/13/17: Node biopsy performed today. Resumed home dose of potassium 10 mEq 3 times a day. 40 mEq potassium 1 given today as well. (Potassium 3.1 today). Platelets up to 94. 05/14/17: Patient doing well. Labs stable today-Hemoglobin 8.8, potassium 3.7, platelets 88,000. Elevated PTH and hypocalcemia - Vit D studies ordered. Lovenox was ordered for VTE prophylaxis. Blood cultures from outside facility were negative at 5 days. 05/15/17: Platelets decreased to 50; Lovenox was discontinued. K 3.3. Biopsy results pending. Hgb 8.3. 05/16/17: Platelets down to [address] Brody restarted IV steroids and IVIG. Hgb 8.6. K 4.1. 05/17/17-05/18/17: Platelets increased to 39 then 53 with IVIG and steroids. Continue to replace K, mild hypokalemia. 05/19/17: Platelets 60, hgb 8.0. Awaiting biopsy results.
[2017-05-19] MEDS ORDERED: ERGOCALCIFEROL 50,000 UNIT CAPSULE PO SCH (17:00)
[2017-05-19] MEDS: TRAZODONE 100 MG TABLET PO SCH (21:16)
[2017-05-19] MEDS: CYCLOBENZAPRINE 10 MG TABLET PO SCH (21:17)
[2017-05-19] MEDS: SALINE FLUSH 10ml SYRINGE IV PRN (21:17)
[2017-05-20 04:00] VITALS: TEMP 97.8
[2017-05-20] MEDS: OMEPRAZOLE 20 MG CAPSULE PO SCH (06:15)
[2017-05-20] MEDS ORDERED: PredniSONE 20 MG TABLET PO SCH (08:00)
[2017-05-20 08:14] VITALS: O2SAT 95
[2017-05-20] MEDS: POLYETHYL GLYCOL 3350 17gm PACKET PO SCH (08:55)
[2017-05-20] MEDS: GABAPENTIN 600 MG TABLET PO SCH ×2 (08:57→15:26)
[2017-05-20] MEDS: CALCIUM 600 + VIT D 400 TABLET PO SCH ×2 (08:58→15:26)
[2017-05-20] MEDS: ALLOPURINOL 100 MG TABLET PO SCH (08:58)
[2017-05-20] MEDS ORDERED: ESTROPIPATE 0.75 MG TABLET PO SCH (09:00)
[2017-05-20] MEDS: AMLODIPINE 5 MG TABLET PO SCH (09:01)
[2017-05-20] MEDS: ATENOLOL 25 MG TABLET PO SCH (09:01)
[2017-05-20] MEDS: DULOXETINE 60 MG CAPSULE PO SCH (09:02)
[2017-05-20] MEDS: SENNA + DOCUSATE TABLET PO SCH (09:04)
[2017-05-20] MEDS: TORSEMIDE 20 MG TABLET PO SCH (09:05)
[2017-05-20] MEDS: DiphenhydrAMINE 50 MG/ML INJECTION IVP SCH ×2 (09:08→12:53)
[2017-05-20] MEDS: RTU SALINE IV SCH (09:36)
[2017-05-20] MEDS: IVIG PRIVIGEN IV SCH (09:36)
[2017-05-20] MEDS: INSULIN REGULAR, HUMAN 100 UNIT/ML INJECTION SQ PRN ×2 (11:09→14:43)
[2017-05-20 13:25] VITALS: BP 137/70; RESP 18
[2017-05-20 17:11] VITALS: PULSE 91
--- NOTE | 2017-05-20 23:42 | Discharge Summary ---
Discharge Summary- Blank Discharge Summary: Mrs. Antony was seen several times earlier in the day and discussed with Michelle Christensen APRN with Dr. Brody to coordinate outpatient follow-up. Patient reports that she generally feels well and is pleased with the improvement in the swelling in her neck and reduction in adenopathy while she's been hospitalized. She denied respiratory concerns or fever at this time. Patient is alert and in no distress; respirations are nonlabored and airflow is good, breath sounds are clear. Patient is ambulating in the room without assistance. Surgical incision along the right sternocleidomastoid is healing well and without inflammation. Platelet count 81,000 today; potassium 3.2 with extra potassium given today prior to discharge. Stable for discharge with plans to follow up with Dr. Brody in the [place] office tomorrow. Final report of lymph node biopsy is pending and special stains from the bone marrow are also pending. Multiple changes to medications-will be outlined in the formal discharge summary to be completed later. Medications reviewed with patient in detail.
--- NOTE | 2017-05-21 21:17 | Discharge Summary ---
Discharge Information Date of admission: 05/07/17 21:48 Anticipated date of discharge: 05/20/17 Attending Physician: Isabella Haley MD Primary care physician: Dr. True Casiano Consults: Dr. Estrada Brody-for thrombocytopenia/anemia/adenopathy Dr. 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 Maddox - Laboratory Labs: On admission 05/07 INR 3.02, fibrinogen elevated at 593, and modest elevation d- dimer 258. Lactic acid 3.0. Urine sodium 12, urine creatinine 39.5 On 05/08/17: White count 6.2 with 17% bands, hemoglobin 10.2 with MCV 88, reticulocyte count 3%; platelet count 14K. chemistries were unremarkable except AST 63, LDH 1262, total serum protein 5.4, albumin 3.0 with corresponding reduction in calcium at 7.5. Additional studies obtained during hospital course included an erythropoietin level of 52.5 with normal range up to 18.5, serum protein electrophoresis without monoclonal spike, B-12 412, methylmalonic acid 0.39 (normal in our lab) , homocystine 8.1, haptoglobin normal at 167. 24-hour urine collection with total of 275 mg protein excreted over 24 hours. Urine immunoelectrophoresis with elevated kappa and lambda light chains with mild nonselective proteinuria described although no monoclonal peak was reported. IgG 1236, IgA 229.8, IgM elevated at 321.3 Rheumatoid factor nondetectable, GILSE positive with high titer positive double strand DNA antibody, anticentromere antibody, and histone antibodies. Ionized calcium 0.94 on 05/14/17 with corresponding total calcium of 6.8. 25- hydroxy vitamin D 11 (nl 30-100), 1-25 dihydroxy D1 127 (18-78), PTH 490.8 (38.2 -78.7) Prior to discharge on 05/20 calcium 9.4, AST 48, ALT 54, LDH 592 05/20/17 04:19 05/20/17 04:19 - Microbiology 05/13/17 13:32 Lymph Node Acid Fast Bacilli Culture & Smear -no AFB seen 05/13/17 13:32 Lymph Node Fungal Culture -pending - Radiology Radiology: CT of the soft tissues of the neck with contrast on 05/07/17: Mild paraseptal emphysema. Significant mediastinal, axillary and cervical lymphadenopathy. Enlarged prevascular node on image #10 measures 2.6 cm in short axis. Enlarged right subpectoral node on image #24 measuring 2 cm in short axis. The thyroid gland is unremarkable. No evidence of airway compromise or tracheal narrowing. Bilateral cervical levels to 34 and five are all involved by minimally distributed lymph nodes measuring between five and 15 mm in short axis dimension. The salivary glands are fatty replaced. Great vessels are grossly normal. No evidence of significant mastoid fluid. There is a 1.5 cm low-attenuation region inferior to the right external auditory canal with some slight stranding around it the could represent phlegmon or inflamed lymph node. Impression: Diffuse adenopathy consistent with patient's history of lymphoma. Possible lymph node versus phlegmon inferior to the right external auditory canal. CT of the soft tissues of the neck without contrast on 05/12/17: Comparison is made to a CT soft tissue neck exam dated May 07, 2017. Previously measured right axillary/subpectoral lymph node on axial image #11 is smaller at 1.6 cm in short axis compared to 2 cm previously. Right cervical level five node just posterior to the IJ port catheter on axial image #36 is also smaller measuring 1.1 cm in short axis compared to 1.2 cm previously. Right cervical level two node on image #44 now measures 1.2 cm short axis compared to 1.5 cm on the comparison. Additional bilateral cervical nodes show similar decrease in size from the very recent comparison. No obvious new or enlarging adenopathy appreciated. Impression: Interval improvement in bilateral cervical, axillary and upper mediastinal adenopathy consistent with response to therapy. CT of the chest, abdomen, and pelvis with contrast on 05/08/17: (Study compared to outside CTs dated 03/12/2017) Small bulla in both lungs. There is new nodularity in the right lower lobe on axial image #27. There is a new 6 mm nodule in the right middle lobe on image #17. There are additional small nodules along the right diaphragmatic surface on image #30. Stable area of possible nodular scar in the lingula. 7 mm left lower lobe nodule on image #31 appears new. No pneumonia, pleural effusion or pneumothorax. The central airways are patent. Axillary and mediastinal adenopathy has significantly worsened from the comparison study. Windshield Installer right axillary node on axial image #12 measures 1.9 cm in short axis compared to 0.9 cm on the comparison. Right paratracheal node on image #11 measures 2 cm in short axis compared to 1.1 cm. AP window node on axial image #18 measures 2.2 cm in short axis compared to 1.3 cm. Additional paratracheal and subcarinal nodes have grown by a similar amount. Right hilar lymphadenopathy as well. Heart size is stable. No pericardial effusion. Great vessels are within normal limits. Abdomen/pelvis: The liver is grossly normal. Gallbladder is surgically absent. The spleen with accessory splenule, pancreas and adrenal glands are normal. Tiny low-attenuation renal foci bilaterally, too small to definitively characterize. Right renal scarring. Interval growth in a large left periaortic node on image #38 now measuring 4.5 cm in short axis compared to 2.9 cm previously. Additional periaortic and aortocaval nodes have significantly enlarged. Enlarging bilateral common and external iliac nodes are also seen. Right common iliac node on image #69 measures 2.2 cm in short axis, increased from 0.9 cm. Large right pelvic sidewall node on image #73 now measures 2.9 cm short axis compared to 1.8 cm. Left pelvic sidewall node on image #76 now measures 2.5 cm short axis compared to 1.1 cm. Enlarging left inguinal nodes. Windshield Installer node on image #89 measures 1.6 cm short axis compared to 1 cm. The bladder is normal. Uterus is absent. Mild sigmoid diverticulosis without acute diverticulitis. No evidence of a bowel obstruction. Calcified density deep to the right abdominal wall probably related to prior hernia repair. Bone windows show degenerative and postoperative changes in the lumbar spine but no obvious lytic or blastic bony lesions. Impression: 1. Significant interval worsening in axillary, mediastinal, retroperitoneal and pelvic adenopathy as described and measured above. 2. New pulmonary nodules suspicious for metastases. CT chest without contrast on 05/12/17: (Compared to study of 05/08/2017) Bilateral pulmonary infiltrates are similar between the two exams. Bilateral axillary and mediastinal adenopathy has improved. Windshield Installer prevascular node on axial image #18 now measures 1.7 cm in short axis, decreased from 2.2 cm previously. Right paratracheal image #12 now measures 1.4 cm in short axis compared to 1.7 cm. Right axillary node on axial image #17 now measures 1.8 cm in short axis compared to 2.1 cm. Additional right axillary lymph node more superiorly now measures 1.4 cm short axis compared to 1.9 cm previously. Subpectoral lymph node in the left side on image #10 measures 1.5 cm in short axis, stable from the comparison. Left periaortic node in the upper abdomen now measures 3.1 cm short axis compared to 3.8 cm previously. Impression: Interval improvement in bilateral axillary, mediastinal and retroperitoneal adenopathy consistent with response to therapy. Bone survey on 05/15/17: AP and lateral views of the skull: No acute fracture. No lytic or blastic osseous lesions. AP and lateral views of the cervical spine: No acute fracture. Mild degenerative disk disease. No lytic or blastic osseous lesions. The C6 vertebra is obscured by external densities. AP and lateral views of the thoracic spine: Normal alignment. No acute fracture or subluxation. DISH and mild multilevel degenerative change. No obvious lytic or blastic metastatic lesions. AP and lateral views of the lumbar spine. Postoperative changes in the lower lumbar region. No acute fracture. No lytic or blastic bony lesions appreciated. AP view of the right humerus: Negative AP view of the left humerus: Negative AP view of the right ribs: No pathologic rib lesions. AP view of the left ribs: No pathologic rib lesions. AP view of the pelvis: No acute fracture. No lytic or blastic osseous lesions. AP view of the right femur: Normal AP view of the left femur: No acute fracture. No lytic or blastic osseous lesions. Total knee replacement. AP view of the right tibia and fibula: No acute fracture. No lytic or blastic osseous lesions. Arterial vascular calcifications. AP view of the left tibia and fibula: No acute fracture. No lytic or blastic osseous lesions. AP view of the right forearm: No acute fracture. No lytic or blastic osseous lesions. AP view of the left forearm: No acute fracture. No lytic or blastic osseous lesions. Impression: No lytic or blastic osseous metastatic disease seen. - Pathology Bone marrow biopsy 05/08/17-report pending, special stains being obtained Lymph node biopsy 05/12/17: Atypical lymph node suspicious for lymphoma with features difficult to subclassify, rare epithelioid granulomas; case admitted to [facility] for consultation and supplemental report pending. History of Present Illness HPI: Danna is a 66-year-old female who lives in [place], [place] under the primary care of Dr. True Casiano. Patient has been ill since April 20 and has had multiple visits to the primary care provider's office. Initially she was diagnosed with influenza A on 04/22. She completed a round of Tamiflu, however, symptoms did not improve. She returned to primary care provider's office on April 30 for reevaluation, at which time she was then started on Augmentin twice a day for 10 days as well as an albuterol MDI inhaler for wheezing. Again , symptoms did not improve. On May 05, 2017 she began having right cervical adenopathy as well as right mastoid pain. Today she returned back to primary care provider's office for reevaluation given persistent symptoms and worsening pain. Further workup was performed at the clinic including a chest x-ray that was negative. Laboratory studies were obtained as follows- WBC count 7.2, hemoglobin 12.7, hematocrit 39.1, platelet count 23, 67% segs, 4% bands. INR is 3.43. Sodium is 135, potassium 3.2, BUN 19, creatinine 1.2, glucose 201, CRP 12.5, troponin negative, TSH 2.32, strep throat culture was negative. Blood cultures were obtained. Urinalysis was negative. She was given IV fluids as well as 2 gram of IV Rocephin at the clinic. She continued to be tachycardic. Given the new findings of thrombocytopenia, persistent tachycardia. Concern for dehydration [facility] hospitalist services were contacted and accepted patient for direct admission under the care of Dr. Haley for further evaluation and treatment. Given her oncologist is Dr. Brody. Patient is seen on arrival to [facility]. She is noted to be tachycardic in the 130s. She is able to give detailed history regarding ongoing illness and treatment. She also reveals that she has had a 10 pound weight loss over the last several weeks during this illness. She reports she does have a history of non-Hodgkin's lymphoma and does continue to follow with Dr. Brody. She reports that he has been observing a "neck mass on the left side. He has also been monitoring enlarged lymph nodes in the outpatient setting. Hospital Course This is a general summary of the patient's hospital course. For more details refer to the complete medical record. Hospital course: 05/07/17 Impression Dehydration Tachycardia-present on admission Thrombocytopenia-present on admission Lymphadenopathy with right mastoid tenderness Type II diabetes Peripheral neuropathy Psoriatic arthritis GERD Pulmonary emboli with chronic anticoagulation Fibromyalgia Chronic back pain Obstructive sleep apnea Plan Admit patient, observation under the care of Dr. Haley for dehydration with tachycardia and thrombocytopenia. Did review outpatient labs from this morning done at [facility] this morning. Vp Outcomes was 1.2. Will obtain CT scan of soft tissue neck to further evaluate lymphadenopathy as well as right-sided mastoid tenderness. Place patient on cardiac telemetry to monitor given evidence tachycardia. Twelve -lead EKG is obtained during examination does reveal sinus tach, rate of 135. Will order PRN Lopressor 5 mg IV every 6 hrs PRN sustained tachycardia greater than 120. Obtain orthostatic vital signs BID Monitor accuchecks given DM Consultation with Dr Brody for further immunology evaluation and recommendation. Concern thrombocytopenia with lymphadenopathy Obtain Urine Vp Outcomes and urine sodium given hyponatremia Consult to pharmacy for Coumadin dosing management SCD to bilateral lower ext Home medications will need to be reviewed once reconciled Patient does wish to be a full code and this order is written Recheck CBC and BMP tomorrow morning to follow blood counts, renal function and electrolytes. Will discuss further orders and plan of care with today, Dr. Haley. At time of discharge medical care will return to primary care provider's in [place], [place], Dr True Casiano 05/08/17 Worsening thrombocytopenia, extensive adenopathy on CT imaging of chest/abdomen/ pelvis. No response to initial platelet pack-likely autoimmune destruction. Additional platelet is being given due to bleeding bone marrow biopsy site. High-dose steroids initiated in conjunction with FFP per Dr. Brody. Bone marrow obtained-results pending. 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 Tachycardia improving with fluid administration-continue. Fevers controlled with frequent doses acetaminophen/Spicer. Continue ceftriaxone for sepsis-will contact Dr. Casiano in [place] tomorrow regarding culture results. Warfarin on hold due to thrombocytopenia/bleeding. SCDs for DVT prophylaxis. 05/09/16- IVIG infusion started by Dr Brody. Continued severe thrombocytopenia. Patient having some bleeding in the gums, nose, and petechiae rash to extremities noted today. Resume Demadex/decrease IV fluids-still receiving significant volume with other IV products. 05/10/17: Currently euvolemic. Continued IVIG and Solu-Medrol per Dr. Brody. Platelets 20K. 05/11/17: PRBC transfusion (hgb decreased from 10.2 -->7.8). Platelets improved to 47 and lymph nodes were decreasing in size. 05/12/17: Thrush diagnosed and Mycelex was started. Platelets up to 77. On Lovenox for PPX. Mild hypokalemia (3.3) and KDur was given. 05/13/17: Node biopsy performed today. Resumed home dose of potassium 10 mEq 3 times a day. 40 mEq potassium 1 given today as well. (Potassium 3.1 today). Platelets up to 94. 05/14/17: Patient doing well. Labs stable today-Hemoglobin 8.8, potassium 3.7, platelets 88,000. Elevated PTH and hypocalcemia - Vit D studies ordered. Lovenox was ordered for VTE prophylaxis. Blood cultures from outside facility were negative at 5 days. 05/15/17: Platelets decreased to 50; Lovenox was discontinued. K 3.3. Biopsy results pending. Hgb 8.3. 05/16/17: Platelets down to [address] Brody restarted IV steroids and IVIG. Hgb 8.6. K 4.1. 05/17/17-05/18/17: Platelets increased to 39 then 53 with IVIG and steroids. Continue to replace K, mild hypokalemia. 05/19/17: Platelets 60, hgb 8.0. Awaiting biopsy results. 05/20/17 Discharge diagnoses: Dehydration-POA with FeNa 0.29% and associated tachycardia -- resolved Autoimmune thrombocytopenia, POA Marginal zone lymphoma with worsening lymphadenopathy concerning for transformation Right mastoid tenderness, possible phlegmon inferior right auditory canal Thrush -resolved after course of Mycelex Hypokalemia Progressive anemia, hemolytic Pulmonary emboli, chronically anticoagulated - oral anticoagulant on hold Type II diabetes with peripheral neuropathy Psoriatic arthritis GERD Chronic back pain, fibromyalgia Hyperlipidemia, hypertension Obstructive sleep apnea, on CPAP Vitamin D deficiency with secondary hyperparathyroidism Mrs. Antony was seen several times earlier in the day and discussed with Michelle Christensen APRN with Dr. Brody to coordinate outpatient follow-up. Patient reports that she generally feels well and is pleased with the improvement in the swelling in her neck and reduction in adenopathy while she's been hospitalized. She denied respiratory concerns or fever at this time. Patient is alert and in no distress; respirations are nonlabored and airflow is good, breath sounds are clear. Patient is ambulating in the room without assistance. Surgical incision along the right sternocleidomastoid is healing well and without inflammation. Platelet count 81,000 today; potassium 3.2 with extra potassium given today prior to discharge. She received a total of 3 platelet packs early in the hospital course but did not require packed red blood cells nor could they be matched to permit transfusion at the 1 point transfusion was considered. 2 units of fresh frozen plasma were administered early in the hospitalization prior to initiation of IVIG. She completed high-dose steroids and an initial 2 day treatment with IVIG followed by 5 day course of IVIG when thrombocytopenia recurred. Adenopathy was significantly improved at discharge compared to admission. Stable for discharge with plans to follow up with Dr. Brody in the [place] office tomorrow. Final report of lymph node biopsy is pending and special stains from the bone marrow are also pending. Multiple changes to medications-will be outlined in the formal discharge summary to be completed later. Medications reviewed with patient in detail. Time spent with patient: discharge greater than 30 minutes Discharge Plan - Med Rec/Dispo Referrals/Follow Up: Wing Casiano MD [Physician] - 1 Week (PT. STATES APPOINTMENTS WITH DR. BRODY AND DR. CASIANO ARE MADE ALREADY, WILL CHECK WITH DR. BRODY RE: FOLLOW UP APPOINTMENT NEEDED WITH DR. MADDOX) Estrada Brody MD [Physician] - 1 Day Serafin Maddox MD [Physician] - 2 Weeks [place] Instructions: Sepsis (GEN), Immune Thrombocytopenia (GEN) Prescriptions: New Amlodipine [Norvasc] 5 mg PO DAILY #30 tab Calcium 600 + D [Caltrate + D] 1 tab PO TID tab Insulin Regular, Human [Novolin R] 100 unit SQ QID PRN #1 vial PRN Reason: Hyperglycemia PredniSONE [Deltasone] 60 mg PO WB #100 tab Ergocalciferol (Vit. D2) [Vitamin D-2] 50,000 unit PO Q7D #12 cap Continue Cyclobenzaprine HCl 15 mg PO HS Rosuvastatin [Crestor] 20 mg PO HS Allopurinol [Zyloprim] 200 mg PO DAILY Hydrocodone/APAP 7.5/325 1 tab PO Q4-6HR PRN PRN Reason: pain Estropipate 0.375 mg PO DAILY Omeprazole 40 mg PO DAILY Torsemide 50 mg PO DAILY Duloxetine HCl [Cymbalta] 60 mg PO BID Gabapentin [Neurontin] 600 mg PO BID Metformin HCl [Metformin HCl ER] 1,000 mg PO DAILY Trazodone HCl 100 mg PO HS Gabapentin [Neurontin] 1,200 mg PO HS Changed Atenolol [Tenormin] 25 mg PO DAILY #0 Potassium Chloride [Klor-Con 10] 20 meq PO TID #0 Discontinued Warfarin Sodium 4 mg PO 3XW Warfarin Sodium 5 mg PO 4XW PredniSONE [Deltasone] 2.5 mg PO DAILY - Disposition 01 Discharged Home, Self-Care - Dismissal Complete Discharge Instructions are:: Complete
== END 2017-05-20 16:40 | disposition home or self-care (01) | DRG 803 ==
LOC: MED → SUATTDRO 21:48
PROVIDERS: ADMIT Internal Medicine; ATTEND Internal Medicine